=== PATIENT | male | born 1955 | race Caucasian/White ===

== ENCOUNTER → 2024-07-08 10:16 | Outpatient (BNVA) | payer OTHER, MEDICAID, SELFPAY | PROVIDERS: PCP Nurse Practitioner Gerontology; Visit Provider Psychiatry & Neurology Neurology | DX: G43.719 Chronic migraine without aura, intractable, without status migrainosus (principal); R55 Syncope and collapse | CPT/HCPCS: 64615; 99211; J0585 ==

== ENCOUNTER → 2025-01-25 13:59 | Outpatient (BNVA) | payer OTHER, SELFPAY | PROVIDERS: PCP Nurse Practitioner Gerontology; Visit Provider Psychiatry & Neurology Neurology | DX: G43.719 Chronic migraine without aura, intractable, without status migrainosus (principal) | CPT/HCPCS: 64615; 99211; J0585 ==

== ENCOUNTER 2025-05-03 12:14 | Outpatient (AMB) | payer OTHER, MEDICAID, SELFPAY ==
--- NOTE | 2025-05-03 12:44 | MHC.OFFVIS ---
Vital Signs 05/03/25 12:45 Height 5 ft 4 in Weight 191 lb 6 oz BMI 32.8 BP 120/68 Blood Pressure Location Rt brachial Position Sitting Pulse 54 Pulse Source Pulse Oximeter Pulse Oximetry (%) 97 Intake Visit Reasons: Botox Intake Note: Botox Biofuels Operations Manager Required: No Accompanied by: Self / Same As Patient Allergies aspirin Allergy (Mild, Verified 05/03/25 12:49) Abdominal Pain gabapentin Allergy (Mild, Verified 05/03/25 12:49) Unknown ibuprofen (From Motrin) Allergy (Mild, Verified 05/03/25 12:49) Hives Medication List - Last Reconciled 05/03/25 by Rossi Cortez MD albuterol sulfate 90 mcg/actuation 0 mcg inhalation atorvastatin 20 mg PO DAILY chlorhexidine gluconate 0.12% 15 mL PO BID clopidogrel 75 mg PO DAILY diltiazem HCl ER (Tiadylt ER) 360 mg PO DAILY famotidine 20 mg PO DAILY fluticasone furoate-vilanterol 200-25 mcg/dose (Breo Ellipta) 1 ea PO DAILY furosemide 40 mg PO DAILY hydrocortisone 2.5% appl topical DAILY hydroxyzine HCl 10 mg PO BEDTIME ibuprofen 800 mg PO Q6H levetiracetam (Keppra) 500 mg PO BID lidocaine-prilocaine 2.5-2.5 % grams topical losartan 100 mg PO DAILY montelukast 10 mg PO DAILY onabotulinumtoxinA (Botox) 200 units; to be injected to muscles around the scalp by physician q 90 days oxycodone 5 mg PO BID PRN pantoprazole 40 mg PO BID relugolix (Orgovyx) 120 mg PO DAILY sennosides (senna) 17.2 mg PO DAILY PRN sertraline 50 mg PO DAILY tamsulosin 0.4 mg PO DAILY terazosin 1 mg PO DAILY tiotropium bromide 2.5 mcg/actuation (Spiriva Respimat) 2 inhalations inhalation QAM ubrogepant (Ubrelvy) 50 mg PO ONCE PRN HPI Comments Details: ? 69y/o male comes for treatment of migraines with botox. His migraines have decreased in frequency and intensity . He has 6 days a month and are milder. ??? Most frequent reported adverse reactions following injection of botox for chronic migraine include neck pain (9%), headache(5%), eyelid ptosis(4%), migraine(4%), muscular weakness(4%), musculuskeletal stiffness(4%), bronchitis(3%), injection site pain (3%), musculoskeletal pain(3%), myalgia(3%), facial paresis(2%), HTN(2%) and muscle spasms(2%) were discussed in detail. ??? Botulinum toxin typeA 200units Lot no [id number] June 2027 was diluted with 4 cc of normal saline . ??? Muscles injected- ??? Frontalis 4 sites ??? Procerus 1 site ??? Bean Weigher- 2 sites ??? Temporalis- 8 sites ??? Occipitalis- 6 sites ??? Cervical paraspinals- 4 sites ??? Trapezius- 6 sites- 10 units each ??? 5 units each in 31 site ??? Total use- 185units ??? Discarded-15units [facility] Medical History Syncope Asthma GERD (gastroesophageal reflux disease) Anxiety Depression Chronic migraine without aura Sleep disorder Snoring Hyperlipidemia HTN (hypertension) Social History Alcohol intake: never Patient Tobacco Use Status: Former Tobacco user Physical Exam Vital Signs: Last Vital Signs Pulse 54 05/03/25 12:45 BP 120/68 05/03/25 12:45 Pulse Ox 97 05/03/25 12:45 BMI result Body Mass Index 32.8 Const General: cooperative, healthy appearing and comfortable Nutritional Appearance: obese Orientation/consciousness: patient oriented x3 Neuro General: patient oriented x3, gait normal, tone normal, moves all extremities and no focal motor deficits Office Procedures Botulinum toxin Injection 70967 - Migraine Procedure code (CPT) selection complete Office Meds onabotulinumtoxinA 200 unit solution for injection Performing Provider: Rossi Cortez MD Performing Location: [facility] Administered by: Rossi Cortez MD on 05/03/25 13:16 Dose Route Admin Location Dispensed Lot Number Expiration Date [facility] Ending Machine Operator 185 unit subcut 200 units [id number] [employer]OTOX Total Dispensed Waste 200 units 7.5 % Comments: see HPI Assessment & Plan Assessment & Plan (1) Chronic migraine without aura: Code(s): G43.709 - Chronic migraine without aura, not intractable, without status migrainosus Category: Medical Qualifiers: Status migrainosus presence: without status migrainosus Intractability: intractable Qualified Code(s): G43.719 - Chronic migraine without aura, intractable, without status migrainosus Plan Patient tolerated the procedure well he will call with any side effects. Orders: Orders AMB Botulinum toxin Injection - Patient Supplied N/C Today G43.719 - Chronic migraine without aura, intractable, without status migrainosus Coding Level of Care Code Est Pt Level 1 (53656) Diagnoses Intractable chronic migraine without aura and without status migrainosus G43.719 Status migrainosus presence: without status migrainosus Intractability: intractable CPT Codes Botox Injection - Botox 3: 70765 - Migraine ([id number])
[2025-05-03 12:45] VITALS: BP 120/68; PULSE 54; O2SAT 97; BMI 32.8
--- OUTSIDE RECORDS SUMMARY | 2025-05-03 13:05 | XMS_ITS | Clinical Summary ---
Author Organization [address] Address [address] [place] [phone] Phone Care Team Providers Care Data Review Specialist Name Role Phone Bing Em NP Primary Care Provider [phone] Allergies Active Allergy Reactions Criticality Noted Date Comments Aspirin Hives,Rash Medium 01/03/2017 Famotidine Rash Low 02/19/2022 Gabapentin Headache High 01/03/2017 Ibuprofen Hives,Rash Medium 09/16/2023 Ketoconazole Swelling 02/19/2022 Topical - face swelling - however tolerates ketoconazole shampoo Penicillins Diarrhea High 01/03/2017 Medications Ubrelvy 50 mg tablet PLEASE SEE ATTACHED FOR DETAILED DIRECTIONS Active albuterol 0.63 mg/3 mL nebulizer solution INHALE 1 VIAL VIA NEBULIZER EVERY 6 HOURS 8 Active albuterol HFA (PROAIR HFA ; PROVENTIL HFA ; VENTOLIN HFA) 90 mcg/actuation inhaler Inhale 2 puffs by mouth every 4 (four) hours. Active atorvastatin (LIPITOR) 20 mg tablet Take 1 tablet (20 mg total) by mouth 1 (one) time each day. Active clopidogreL (PLAVIX) 75 mg tablet Take 1 tablet (75 mg total) by mouth 1 (one) time each day. Active ferrous sulfate 325 mg (65 mg elemental iron) tablet TAKE 1 TABLET BY MOUTH EVERY OTHER DAY FOR 45 DAYS. 5 Active fluticasone propionate (FLONASE) 50 mcg/actuation nasal spray SPRAY 1 SPRAY BY INTRANASAL ROUTE EVERY DAY Active Breo Ellipta 200-25 mcg/dose inhaler Inhale 1 puff by mouth 1 (one) time each day. Active furosemide (LASIX) 40 mg tablet Take 0.5 tablets (20 mg total) by mouth 1 (one) time each day. Active Tiadylt ER 360 mg 24 hr capsule Take 1 capsule (360 mg total) by mouth 1 (one) time each day. 5 Active hydrOXYzine HCL (ATARAX) 25 mg tablet TAKE 1 TABLET 3 TIMES A DAY BY ORAL ROUTE NEEDED, FOR ANXIETY. 5 Active levalbuterol (XOPENEX HFA) 45 mcg/actuation inhaler Inhale 2 puffs by mouth once daily as needed. 3 Active losartan (COZAAR) 100 mg tablet Take 1 tablet (100 mg total) by mouth 1 (one) time each day. Active montelukast (SINGULAIR) 10 mg tablet Take 1 tablet (10 mg total) by mouth 1 (one) time each day. Active multivitamin tablet 1 TAB DAILY Active Botox 200 unit injection Every 90 days 2 Active oxyCODONE (ROXICODONE) 5 mg immediate release tablet TAKE 1-2 TABLETS BY MOUTH DAILY NEEDED FOR 28 DAYS Active pantoprazole (PROTONIX) 40 mg EC tablet Take 1 tablet (40 mg total) by mouth 2 (two) times a day. Active sertraline (ZOLOFT) 50 mg tablet Take 1 tablet (50 mg total) by mouth 1 (one) time each day. 4 Active terazosin (HYTRIN) 1 mg capsule Take 1 capsule (1 mg total) by mouth 1 (one) time each day. 5 Active Spiriva Respimat 2.5 mcg/actuation inhalation spray INHALE 2 PUFFS INTO THE LUNGS EVERY DAY 5 Active loratadine (CLARITIN) 10 mg tablet Take 1 tablet (10 mg total) by mouth 1 (one) time each day if needed. Active senna (SENOKOT) 8.6 mg tablet Take 3 tablets (25.8 mg total) by mouth 1 (one) time each day. Active tamsulosin (FLOMAX) 0.4 mg 24 hr capsule Take 1 capsule (0.4 mg total) by mouth 2 (two) times a day. Capsules should be taken 30 minutes following the same meal each day. 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 For 5 days started on 04-16. Then stop. Active levoFLOXacin (LEVAQUIN) 500 mg tabletIndicatio ns:pneumococcal pneumonia Take 1 tablet (500 mg total) by mouth 1 (one) time each day. For 5 days starting on 04-16. Then Stop. Active Active Problems Problem Noted Date Diagnosed Date Prostate cancer ([facility] V24, [facility] V28) 01/18 Encounters Date Type Department Care Team Description 04/19/2025 8:09 AM EDT - 04/19/2025 11:59 PM EDT Hospital Encounter Radiation Oncology [address] [place] [phone] Марина Eid NP Prostate cancer ([facility] V24, [facility] V28) (Primary Dx) Discharge Disposition: Home or Self Care 04/19/2025 7:49 AM EDT - 04/19/2025 11:59 PM EDT Hospital Encounter Radiation Oncology [address] [place] [phone] Discharge Disposition: Home or Self Care 04/18/2025 7:55 AM EDT - 04/18/2025 11:59 PM EDT Hospital Encounter Radiation Oncology [address] [place] [phone] Discharge Disposition: Home or Self Care 04/15/2025 8:08 AM EDT - 04/15/2025 11:59 PM EDT Hospital Encounter Radiation Oncology [address] [place] [phone] Clarita Westbrook MD Prostate cancer ([facility] V24, [facility] V28) (Primary Dx) Discharge Disposition: Home or Self Care 04/15/2025 7:52 AM EDT - 04/15/2025 11:59 PM EDT Hospital Encounter Radiation Oncology [address] [place] [phone] Discharge Disposition: Home or Self Care 04/14/2025 7:58 AM EDT - 04/14/2025 11:59 PM EDT Hospital Encounter Radiation Oncology [address] [place] [phone] Discharge Disposition: Home or Self Care 04/13/2025 7:51 AM EDT - 04/13/2025 11:59 PM EDT Hospital Encounter Radiation Oncology [address] [place] [phone] Discharge Disposition: Home or Self Care 04/12/2025 7:47 AM EDT - 04/12/2025 11:59 PM EDT Hospital Encounter Radiation Oncology [address] [place] [phone] Discharge Disposition: Home or Self Care 04/11/2025 7:44 AM EDT - 04/11/2025 11:59 PM EDT Hospital Encounter Radiation Oncology [address] [place] [phone] Discharge Disposition: Home or Self Care 04/08/2025 8:10 AM EDT - 04/08/2025 11:59 PM EDT Hospital Encounter Radiation Oncology [address] [place] [phone] Clarita Westbrook MD Prostate cancer (CMS/HCC V24, CMS/HCC V28) (Primary Dx) Discharge Disposition: Home or Self Care 04/08/2025 7:53 AM EDT - 04/08/2025 11:59 PM EDT Hospital Encounter Radiation Oncology [address] [place] [phone] Discharge Disposition: Home or Self Care 04/07/2025 8:00 AM EDT - 04/07/2025 11:59 PM EDT Hospital Encounter Radiation Oncology [address] [place] [phone] Discharge Disposition: Home or Self Care 04/06/2025 8:00 AM EDT - 04/06/2025 11:59 PM EDT Hospital Encounter Radiation Oncology [address] [place] [phone] Discharge Disposition: Home or Self Care 04/05/2025 7:57 AM EDT - 04/05/2025 11:59 PM EDT Hospital Encounter Radiation Oncology [address] [place] [phone] Discharge Disposition: Home or Self Care 04/04/2025 7:46 AM EDT - 04/04/2025 11:59 PM EDT Hospital Encounter Radiation Oncology [address] [place] [phone] Discharge Disposition: Home or Self Care 04/01/2025 8:09 AM EDT - 04/01/2025 11:59 PM EDT Hospital Encounter Radiation Oncology [address] [place] [phone] Vin Felton MD Discharge Disposition: Home or Self Care 04/01/2025 7:58 AM EDT - 04/01/2025 11:59 PM EDT Hospital Encounter Radiation Oncology [address] [place] [phone] Discharge Disposition: Home or Self Care 03/31/2025 7:45 AM EDT - 03/31/2025 11:59 PM EDT Hospital Encounter Radiation Oncology [address] [place] [phone] Discharge Disposition: Home or Self Care 03/30/2025 7:56 AM EDT - 03/30/2025 11:59 PM EDT Hospital Encounter Radiation Oncology [address] [place] [phone] Discharge Disposition: Home or Self Care 03/29/2025 8:00 AM EDT - 03/29/2025 11:59 PM EDT Hospital Encounter Radiation Oncology [address] [place] [phone] Discharge Disposition: Home or Self Care 03/28/2025 7:55 AM EDT - 03/28/2025 11:59 PM EDT Hospital Encounter Radiation Oncology [address] [place] [phone] Discharge Disposition: Home or Self Care 03/24/2025 8:09 AM EDT - 03/24/2025 11:59 PM EDT Hospital Encounter Radiation Oncology [address] [place] [phone] Clarita Westbrook MD Prostate cancer (CMS/HCC V24, CMS/HCC V28) (Primary Dx) Discharge Disposition: Home or Self Care 03/24/2025 7:47 AM EDT - 03/24/2025 11:59 PM EDT Hospital Encounter Radiation Oncology [address] [place] [phone] Discharge Disposition: Home or Self Care 03/23/2025 8:00 AM EDT - 03/23/2025 11:59 PM EDT Hospital Encounter Radiation Oncology [address] [place] [phone] Prostate cancer (CMS/HCC V24, CMS/HCC V28) (Primary Dx) Discharge Disposition: Home or Self Care 03/22/2025 8:00 AM EDT - 03/22/2025 11:59 PM EDT Hospital Encounter Radiation Oncology [address] [place] [phone] Discharge Disposition: Home or Self Care 03/21/2025 7:48 AM EDT - 03/21/2025 11:59 PM EDT Hospital Encounter Radiation Oncology [address] [place] [phone] Discharge Disposition: Home or Self Care 03/18/2025 8:07 AM EDT - 03/18/2025 11:59 PM EDT Hospital Encounter Radiation Oncology [address] [place] [phone] Clarita Westbrook MD Prostate cancer (CMS/HCC V24, CMS/HCC V28) (Primary Dx) Discharge Disposition: Home or Self Care 03/18/2025 7:58 AM EDT - 03/18/2025 11:59 PM EDT Hospital Encounter Radiation Oncology [address] [place] [phone] Discharge Disposition: Home or Self Care 03/17/2025 8:00 AM EDT - 03/17/2025 11:59 PM EDT Hospital Encounter Radiation Oncology [address] [place] [phone] Discharge Disposition: Home or Self Care 03/16/2025 7:58 AM EDT - 03/16/2025 11:59 PM EDT Hospital Encounter Radiation Oncology [address] [place] [phone] Discharge Disposition: Home or Self Care 03/15/2025 7:55 AM EDT - 03/15/2025 11:59 PM EDT Hospital Encounter Radiation Oncology [address] [place] [phone] Discharge Disposition: Home or Self Care 03/14/2025 7:57 AM EDT - 03/14/2025 11:59 PM EDT Hospital Encounter Radiation Oncology [address] [place] [phone] Discharge Disposition: Home or Self Care 03/11/2025 8:10 AM EDT - 03/11/2025 11:59 PM EDT Hospital Encounter Radiation Oncology [address] [place] [phone] Clarita Westbrook MD Prostate cancer (CMS/HCC V24, CMS/HCC V28) (Primary Dx) Discharge Disposition: Home or Self Care 03/11/2025 7:58 AM EDT - 03/11/2025 11:59 PM EDT Hospital Encounter Radiation Oncology [address] [place] [phone] Discharge Disposition: Home or Self Care 03/10/2025 11:41 AM EDT - 03/10/2025 11:59 PM EDT Hospital Encounter Radiation Oncology [address] [place] [phone] Clarita Westbrook MD Discharge Disposition: Home or Self Care 03/10/2025 11:14 AM EDT - 03/10/2025 11:59 PM EDT Hospital Encounter Radiation Oncology [address] [place] [phone] Discharge Disposition: Home or Self Care 02/25/2025 8:14 AM EDT - 02/25/2025 11:59 PM EDT Hospital Encounter Radiation Oncology [address] [place] [phone] Discharge Disposition: Home or Self Care 02/23/2025 1:00 PM EDT - 02/23/2025 11:59 PM EDT Hospital Encounter Radiation Oncology [address] [place] [phone] Clarita Westbrook MD Prostate cancer ([facility] V24, [facility] V28) Discharge Disposition: Home or Self Care 02/23/2025 11:56 AM EDT - 02/23/2025 11:59 PM EDT Hospital Encounter Radiation Oncology [address] [place] [phone] Prostate cancer ([facility] V24, [facility] V28) (Primary Dx) Discharge Disposition: Home or Self Care 02/18/2025 Telephone Radiation Oncology [address] [place] [phone] Key Martinez, LAUREN Prostate prep from Last 3 Months Family History Medical History Relation Name Comments Stomach cancer Mother Liver cancer Mother's Brother Relation Name Status Comments Mother Mother's Brother Social History Tobacco Use Types Packs/Day Years Used Date Smoking Tobacco: Former Cigarettes Q uit: 1994 Smokeless Tobacco: Never Tobacco Cessation:Counseling Given: Not Answered Alcohol Use Standard Drinks/Week Comments Not Currently 0 (1 standard drink = 0.6 oz pur e alcohol) Sex and Gender Information Value Date Recorded Sex Assigned at Not on file Legal Sex Male 10:15 AM EST Gender Identity Not on file Sexual Orientation Not on file Occupation Industry Job Start Date Job End Date Retired Not on file Not on file Not on file Obstetrics History Last Filed Vital Signs Vital Sign Reading Time Taken Comments Blood Pressure 145/73 02/23/2025 1:06 PM EDT Pulse 49 02/23/2025 1:06 PM EDT Temperature 36.1 C (97 F) 02/23/2025 1:06 PM EDT Respiratory Rate 17 02/23/2025 1:06 PM EDT Oxygen Saturation 100% 02/23/2025 1:06 PM EDT Inhaled Oxygen Concentration - - Weight 84.6 kg (186 lb 9.6 oz) 02/23/2025 1:06 P M EDT Height 162.6 cm (5' 4 ) 01/18/2025 9:49 AM EDT Body Mass Index 32.03 01/18/2025 9:49 AM EDT Plan of Treatment Upcoming Encounters Date Type Department Care Team (Late st Contact Info) Description 06/17/2025 9:30 AM EDT Appointment Radiation Oncology [address] [place] [phone] Марина Eid, ADILSON [address] [place] [address] Health Maintenance Due Date Last Done Comments RSV Immunization Adult Patients (1 - Risk 60-74 years 1-dose series) 2014 Abdominal Aortic Aneurysm (AAA) Screen 09/08/2024 Colorectal Cancer Screening: Stool Based Tests (FOBT/FIT) 09/08/2024 06/28/2022 Hepatitis C Screening 09/08/2024 Medicare Annual Wellness Visit 09/08/2024 Social Influencers of Health Screening 09/08/2024 Depression Screening 09/22/2024 COVID-19 Vaccine (7 - Pfizer risk 2023- season) 2024 06/24/2024, 10/11/2022, 05/02/2022, Additional history exists Hypertension/CHF/CAD Annual BMP Blood Test 01/18/2025 02/21/2023, 12/20/2020 Influenza Vaccine (#1) 2025 , 06/17/2023, 11/16/2022, Additional history exists Falls Risk Assessment 01/18/2026 01/18/2025 Cholesterol Screening (Lipid Panel) 02/22/2028 02/21/2023 DTaP,Tdap,and Td Vaccines (3 - Td or Tdap) 07/06/2030 07/06/2020, 07/04/2008 Zoster Vaccines Completed 05/16/2022, 01/20, 01/05/2015 Pneumococcal Vaccine: 50+ Years Completed 06/17/2023, 11/16/2022, 08/11/2019, Additional history exists HIB Vaccines Aged Out No longer eligi ble based on patient's age to complete this topic HPV Vaccines Aged Out No longer eligi ble based on patient's age to complete this topic Hepatitis A Vaccines Aged Out No long er eligible based on patient's age to complete this topic Hepatitis B Vaccines Aged Out No long er eligible based on patient's age to complete this topic IPV Vaccines Aged Out No longer eligi ble based on patient's age to complete this topic MMR Vaccines Aged Out No longer eligi ble based on patient's age to complete this topic Meningococcal ACWY Vaccine Aged Out N o longer eligible based on patient's age to complete this topic Meningococcal B Vaccine Aged Out No l onger eligible based on patient's age to complete this topic RSV Immunization Patients Under 20 months Aged Out No longer eligible based on patient's age to complete this topic Varicella Vaccines Aged Out No longer eligible based on patient's age to complete this topic Procedures Procedure Name Priority Date/Time Associated Diagnosis Comments RAD ONC MSQ TREATMENT SUMMARY Routine 04/19/2025 8:08 AM EDT RAD ONC MSQ TREATMENT SUMMARY Routine 04/18/2025 8:14 AM EDT RAD ONC MSQ TREATMENT SUMMARY Routine 04/15/2025 8:08 AM EDT RAD ONC MSQ TREATMENT SUMMARY Routine 04/14/2025 8:08 AM EDT RAD ONC MSQ TREATMENT SUMMARY Routine 04/13/2025 8:07 AM EDT RAD ONC MSQ TREATMENT SUMMARY Routine 04/12/2025 8:10 AM EDT RAD ONC MSQ TREATMENT SUMMARY Routine 04/11/2025 8:11 AM EDT RAD ONC MSQ TREATMENT SUMMARY Routine 04/08/2025 8:14 AM EDT RAD ONC MSQ TREATMENT SUMMARY Routine 04/07/2025 8:08 AM EDT RAD ONC MSQ TREATMENT SUMMARY Routine 04/06/2025 8:29 AM EDT RAD ONC MSQ TREATMENT SUMMARY Routine 04/05/2025 8:09 AM EDT RAD ONC MSQ TREATMENT SUMMARY Routine 04/04/2025 8:10 AM EDT RAD ONC MSQ TREATMENT SUMMARY Routine 04/01/2025 8:09 AM EDT RAD ONC MSQ TREATMENT SUMMARY Routine 03/31/2025 8:08 AM EDT RAD ONC MSQ TREATMENT SUMMARY Routine 03/30/2025 8:08 AM EDT RAD ONC MSQ TREATMENT SUMMARY Routine 03/29/2025 8:18 AM EDT RAD ONC MSQ TREATMENT SUMMARY Routine 03/28/2025 8:08 AM EDT RAD ONC MSQ TREATMENT SUMMARY Routine 03/24/2025 8:09 AM EDT RAD ONC MSQ TREATMENT SUMMARY Routine 03/23/2025 8:09 AM EDT RAD ONC MSQ TREATMENT SUMMARY Routine 03/22/2025 8:04 AM EDT RAD ONC MSQ TREATMENT SUMMARY Routine 03/21/2025 8:17 AM EDT RAD ONC MSQ TREATMENT SUMMARY Routine 03/18/2025 8:07 AM EDT RAD ONC MSQ TREATMENT SUMMARY Routine 03/17/2025 8:09 AM EDT RAD ONC MSQ TREATMENT SUMMARY Routine 03/16/2025 8:08 AM EDT RAD ONC MSQ TREATMENT SUMMARY Routine 03/15/2025 8:06 AM EDT RAD ONC MSQ TREATMENT SUMMARY Routine 03/14/2025 8:13 AM EDT RAD ONC MSQ TREATMENT SUMMARY Routine 03/11/2025 8:20 AM EDT RAD ONC MSQ TREATMENT SUMMARY Routine 03/10/2025 11:41 AM EDT from Last 3 Months Results * Rad Onc Msq Treatment Summary (04/19/2025 8:08 AM EDT) Treatment Site prostate/s v MOSAIQ RADIATION ONCOLOGY Course Number 1 MOSAIQ RADIATION ONCOLOGY Prescribed Fractional Dose 250 cGray MOSAIQ RADIATION ONCOLOGY Prescribed Total Dose 7,000 cGray MOSAIQ RADIATION ONCOLOGY Actual Fractions Delivered 28 MOSAIQ RADIATION ONCOLOGY Actual Session Delivered Dose 250 cGray MOSAIQ RADIATION ONCOLOGY Actual Total Dose 7,000 cGray MOSAIQ RADIATION ONCOLOGY Prescribed Technique 2 arc VMAT MOSAIQ RADIATION ONCOLOGY Elapsed Days 40 MOSAIQ RADIATION ONCOLOGY Start Date 03/10/2025 MOSAIQ RADIATION ONCOLOGY Last Date 04/19/2025 MOSAIQ RADIATION ONCOLOGY Prescribed Number of Fractions 28 MOSAIQ RADIATION ONCOLOGY 04/19/2025 8:08 AM EDT Physician Radiation Oncology RADIATION ONCOLO GY ORDERABLES Final Result Performing Organization Address City/[facility]/ZIP Co de Phone Number MOSAIQ RADIATION ONCOLOGY * Rad Onc Msq Treatment Summary (04/18/2025 8:14 AM EDT) Treatment Site prostate/s v MOSAIQ RADIATION ONCOLOGY Course Number 1 MOSAIQ RADIATION ONCOLOGY Prescribed Fractional Dose 250 cGray MOSAIQ RADIATION ONCOLOGY Prescribed Total Dose 7,000 cGray MOSAIQ RADIATION ONCOLOGY Actual Fractions Delivered 27 MOSAIQ RADIATION ONCOLOGY Actual Session Delivered Dose 250 cGray MOSAIQ RADIATION ONCOLOGY Actual Total Dose 6,750 cGray MOSAIQ RADIATION ONCOLOGY Prescribed Technique 2 arc VMAT MOSAIQ RADIATION ONCOLOGY Elapsed Days 39 MOSAIQ RADIATION ONCOLOGY Start Date 03/10/2025 MOSAIQ RADIATION ONCOLOGY Last Date 04/18/2025 MOSAIQ RADIATION ONCOLOGY Prescribed Number of Fractions 28 MOSAIQ RADIATION ONCOLOGY 04/18/2025 8:14 AM EDT Physician Radiation Oncology RADIATION ONCOLO GY ORDERABLES Final Result MOSAIQ RADIATION ONCOLOGY * Rad Onc Msq Treatment Summary (04/15/2025 8:08 AM EDT) Treatment Site prostate/s v MOSAIQ RADIATION ONCOLOGY Course Number 1 MOSAIQ RADIATION ONCOLOGY Prescribed Fractional Dose 250 cGray MOSAIQ RADIATION ONCOLOGY Prescribed Total Dose 7,000 cGray MOSAIQ RADIATION ONCOLOGY Actual Fractions Delivered 26 MOSAIQ RADIATION ONCOLOGY Actual Session Delivered Dose 250 cGray MOSAIQ RADIATION ONCOLOGY Actual Total Dose 6,500 cGray MOSAIQ RADIATION ONCOLOGY Prescribed Technique 2 arc VMAT MOSAIQ RADIATION ONCOLOGY Elapsed Days 36 MOSAIQ RADIATION ONCOLOGY Start Date 03/10/2025 MOSAIQ RADIATION ONCOLOGY Last Date 04/15/2025 MOSAIQ RADIATION ONCOLOGY Prescribed Number of Fractions 28 MOSAIQ RADIATION ONCOLOGY 04/15/2025 8:08 AM EDT Physician Radiation Oncology RADIATION ONCOLO GY ORDERABLES Final Result Performing Organization Address City/[facility]/ZIP Co de Phone Number MOSAIQ RADIATION ONCOLOGY * Rad Onc Msq Treatment Summary (04/14/2025 8:08 AM EDT) Pathologist [facility] Treatment Site prostate/s v MOSAIQ RADIATION ONCOLOGY Course Number 1 MOSAIQ RADIATION ONCOLOGY Prescribed Fractional Dose 250 cGray MOSAIQ RADIATION ONCOLOGY Prescribed Total Dose 7,000 cGray MOSAIQ RADIATION ONCOLOGY Actual Fractions Delivered 25 MOSAIQ RADIATION ONCOLOGY Actual Session Delivered Dose 250 cGray MOSAIQ RADIATION ONCOLOGY Actual Total Dose 6,250 cGray MOSAIQ RADIATION ONCOLOGY Prescribed Technique 2 arc VMAT MOSAIQ RADIATION ONCOLOGY Elapsed Days 35 MOSAIQ RADIATION ONCOLOGY Start Date 03/10/2025 MOSAIQ RADIATION ONCOLOGY Last Date 04/14/2025 MOSAIQ RADIATION ONCOLOGY Prescribed Number of Fractions 28 MOSAIQ RADIATION ONCOLOGY 04/14/2025 8:08 AM EDT Physician Radiation Oncology RADIATION ONCOLO GY ORDERABLES Final Result MOSAIQ RADIATION ONCOLOGY * Rad Onc Msq Treatment Summary (04/13/2025 8:07 AM EDT) Treatment Site prostate/s v MOSAIQ RADIATION ONCOLOGY Course Number 1 MOSAIQ RADIATION ONCOLOGY Prescribed Fractional Dose 250 cGray MOSAIQ RADIATION ONCOLOGY Prescribed Total Dose 7,000 cGray MOSAIQ RADIATION ONCOLOGY Actual Fractions Delivered 24 MOSAIQ RADIATION ONCOLOGY Actual Session Delivered Dose 250 cGray MOSAIQ RADIATION ONCOLOGY Actual Total Dose 6,000 cGray MOSAIQ RADIATION ONCOLOGY Prescribed Technique 2 arc VMAT MOSAIQ RADIATION ONCOLOGY Elapsed Days 34 MOSAIQ RADIATION ONCOLOGY Start Date 03/10/2025 MOSAIQ RADIATION ONCOLOGY Last Date 04/13/2025 MOSAIQ RADIATION ONCOLOGY Prescribed Number of Fractions 28 MOSAIQ RADIATION ONCOLOGY 04/13/2025 8:07 AM EDT Physician Radiation Oncology RADIATION ONCOLO GY ORDERABLES Final Result MOSAIQ RADIATION ONCOLOGY * Rad Onc Msq Treatment Summary (04/12/2025 8:10 AM EDT) Pathologist [facility] Treatment Site prostate/s v MOSAIQ RADIATION ONCOLOGY Course Number 1 MOSAIQ RADIATION ONCOLOGY Prescribed Fractional Dose 250 cGray MOSAIQ RADIATION ONCOLOGY Prescribed Total Dose 7,000 cGray MOSAIQ RADIATION ONCOLOGY Actual Fractions Delivered 23 MOSAIQ RADIATION ONCOLOGY Actual Session Delivered Dose 250 cGray MOSAIQ RADIATION ONCOLOGY Actual Total Dose 5,750 cGray MOSAIQ RADIATION ONCOLOGY Prescribed Technique 2 arc VMAT MOSAIQ RADIATION ONCOLOGY Elapsed Days 33 MOSAIQ RADIATION ONCOLOGY Start Date 03/10/2025 MOSAIQ RADIATION ONCOLOGY Last Date 04/12/2025 MOSAIQ RADIATION ONCOLOGY Prescribed Number of Fractions 28 MOSAIQ RADIATION ONCOLOGY 04/12/2025 8:10 AM EDT Physician Radiation Oncology RADIATION ONCOLO GY ORDERABLES Final Result MOSAIQ RADIATION ONCOLOGY * Rad Onc Msq Treatment Summary (04/11/2025 8:11 AM EDT) Treatment Site prostate/s v MOSAIQ RADIATION ONCOLOGY Course Number 1 MOSAIQ RADIATION ONCOLOGY Prescribed Fractional Dose 250 cGray MOSAIQ RADIATION ONCOLOGY Prescribed Total Dose 7,000 cGray MOSAIQ RADIATION ONCOLOGY Actual Fractions Delivered 22 MOSAIQ RADIATION ONCOLOGY Actual Session Delivered Dose 250 cGray MOSAIQ RADIATION ONCOLOGY Actual Total Dose 5,500 cGray MOSAIQ RADIATION ONCOLOGY Prescribed Technique 2 arc VMAT MOSAIQ RADIATION ONCOLOGY Elapsed Days 32 MOSAIQ RADIATION ONCOLOGY Start Date 03/10/2025 MOSAIQ RADIATION ONCOLOGY Last Date 04/11/2025 MOSAIQ RADIATION ONCOLOGY Prescribed Number of Fractions 28 MOSAIQ RADIATION ONCOLOGY 04/11/2025 8:11 AM EDT Physician Radiation Oncology RADIATION ONCALICIA GY ORDERABLES Final Result MOSAIQ RADIATION ONCOLOGY * Rad Onc Msq Treatment Summary (04/08/2025 8:14 AM EDT) Treatment Site prostate/s v MOSAIQ RADIATION ONCOLOGY Course Number 1 MOSAIQ RADIATION ONCOLOGY Prescribed Fractional Dose 250 cGray MOSAIQ RADIATION ONCOLOGY Prescribed Total Dose 7,000 cGray MOSAIQ RADIATION ONCOLOGY Actual Fractions Delivered 21 MOSAIQ RADIATION ONCOLOGY Actual Session Delivered Dose 250 cGray MOSAIQ RADIATION ONCOLOGY Actual Total Dose 5,250 cGray MOSAIQ RADIATION ONCOLOGY Prescribed Technique 2 arc VMAT MOSAIQ RADIATION ONCOLOGY Elapsed Days 29 MOSAIQ RADIATION ONCOLOGY Start Date 03/10/2025 MOSAIQ RADIATION ONCOLOGY Last Date 04/08/2025 MOSAIQ RADIATION ONCOLOGY Prescribed Number of Fractions 28 MOSAIQ RADIATION ONCOLOGY 04/08/2025 8:14 AM EDT Physician Radiation Oncology RADIATION ONCALICIA GY ORDERABLES Final Result MOSAIQ RADIATION ONCOLOGY * Rad Onc Msq Treatment Summary (04/07/2025 8:08 AM EDT) Treatment Site prostate/s v MOSAIQ RADIATION ONCOLOGY Course Number 1 MOSAIQ RADIATION ONCOLOGY Prescribed Fractional Dose 250 cGray MOSAIQ RADIATION ONCOLOGY Prescribed Total Dose 7,000 cGray MOSAIQ RADIATION ONCOLOGY Actual Fractions Delivered 20 MOSAIQ RADIATION ONCOLOGY Actual Session Delivered Dose 250 cGray MOSAIQ RADIATION ONCOLOGY Actual Total Dose 5,000 cGray MOSAIQ RADIATION ONCOLOGY Prescribed Technique 2 arc VMAT MOSAIQ RADIATION ONCOLOGY Elapsed Days 28 MOSAIQ RADIATION ONCOLOGY Start Date 03/10/2025 MOSAIQ RADIATION ONCOLOGY Last Date 04/07/2025 MOSAIQ RADIATION ONCOLOGY Prescribed Number of Fractions 28 MOSAIQ RADIATION ONCOLOGY 04/07/2025 8:08 AM EDT Physician Radiation Oncology RADIATION ONCOLO GY ORDERABLES Final Result MOSAIQ RADIATION ONCOLOGY * Rad Onc Msq Treatment Summary (04/06/2025 8:29 AM EDT) Treatment Site prostate/s v MOSAIQ RADIATION ONCOLOGY Course Number 1 MOSAIQ RADIATION ONCOLOGY Prescribed Fractional Dose 250 cGray MOSAIQ RADIATION ONCOLOGY Prescribed Total Dose 7,000 cGray MOSAIQ RADIATION ONCOLOGY Actual Fractions Delivered 19 MOSAIQ RADIATION ONCOLOGY Actual Session Delivered Dose 250 cGray MOSAIQ RADIATION ONCOLOGY Actual Total Dose 4,750 cGray MOSAIQ RADIATION ONCOLOGY Prescribed Technique 2 arc VMAT MOSAIQ RADIATION ONCOLOGY Elapsed Days 27 MOSAIQ RADIATION ONCOLOGY Start Date 03/10/2025 MOSAIQ RADIATION ONCOLOGY Last Date 04/06/2025 MOSAIQ RADIATION ONCOLOGY Prescribed Number of Fractions 28 MOSAIQ RADIATION ONCOLOGY 04/06/2025 8:29 AM EDT Physician Radiation Oncology RADIATION ONCOLO GY ORDERABLES Final Result MOSAIQ RADIATION ONCOLOGY * Rad Onc Msq Treatment Summary (04/05/2025 8:09 AM EDT) Treatment Site prostate/s v MOSAIQ RADIATION ONCOLOGY Course Number 1 MOSAIQ RADIATION ONCOLOGY Prescribed Fractional Dose 250 cGray MOSAIQ RADIATION ONCOLOGY Prescribed Total Dose 7,000 cGray MOSAIQ RADIATION ONCOLOGY Actual Fractions Delivered 18 MOSAIQ RADIATION ONCOLOGY Actual Session Delivered Dose 250 cGray MOSAIQ RADIATION ONCOLOGY Actual Total Dose 4,500 cGray MOSAIQ RADIATION ONCOLOGY Prescribed Technique 2 arc VMAT MOSAIQ RADIATION ONCOLOGY Elapsed Days 26 MOSAIQ RADIATION ONCOLOGY Start Date 03/10/2025 MOSAIQ RADIATION ONCOLOGY Last Date 04/05/2025 MOSAIQ RADIATION ONCOLOGY Prescribed Number of Fractions 28 MOSAIQ RADIATION ONCOLOGY 04/05/2025 8:09 AM EDT Physician Radiation Oncology RADIATION ONCOLO GY ORDERABLES Final Result MOSAIQ RADIATION ONCOLOGY * Rad Onc Msq Treatment Summary (04/04/2025 8:10 AM EDT) Treatment Site prostate/s v MOSAIQ RADIATION ONCOLOGY Course Number 1 MOSAIQ RADIATION ONCOLOGY Prescribed Fractional Dose 250 cGray MOSAIQ RADIATION ONCOLOGY Prescribed Total Dose 7,000 cGray MOSAIQ RADIATION ONCOLOGY Actual Fractions Delivered 17 MOSAIQ RADIATION ONCOLOGY Actual Session Delivered Dose 250 cGray MOSAIQ RADIATION ONCOLOGY Actual Total Dose 4,250 cGray MOSAIQ RADIATION ONCOLOGY Prescribed Technique 2 arc VMAT MOSAIQ RADIATION ONCOLOGY Elapsed Days 25 MOSAIQ RADIATION ONCOLOGY Start Date 03/10/2025 MOSAIQ RADIATION ONCOLOGY Last Date 04/04/2025 MOSAIQ RADIATION ONCOLOGY Prescribed Number of Fractions 28 MOSAIQ RADIATION ONCOLOGY 04/04/2025 8:10 AM EDT Physician Radiation Oncology RADIATION ONCOLO GY ORDERABLES Final Result Performing Organization Address City/[facility]/ZIP Co de Phone Number MOSAIQ RADIATION ONCOLOGY * Rad Onc Msq Treatment Summary (04/01/2025 8:09 AM EDT) Treatment Site prostate/s v MOSAIQ RADIATION ONCOLOGY Course Number 1 MOSAIQ RADIATION ONCOLOGY Prescribed Fractional Dose 250 cGray MOSAIQ RADIATION ONCOLOGY Prescribed Total Dose 7,000 cGray MOSAIQ RADIATION ONCOLOGY Actual Fractions Delivered 16 MOSAIQ RADIATION ONCOLOGY Actual Session Delivered Dose 250 cGray MOSAIQ RADIATION ONCOLOGY Actual Total Dose 4,000 cGray MOSAIQ RADIATION ONCOLOGY Prescribed Technique 2 arc VMAT MOSAIQ RADIATION ONCOLOGY Elapsed Days 22 MOSAIQ RADIATION ONCOLOGY Start Date 03/10/2025 MOSAIQ RADIATION ONCOLOGY Last Date 04/01/2025 MOSAIQ RADIATION ONCOLOGY Prescribed Number of Fractions 28 MOSAIQ RADIATION ONCOLOGY 04/01/2025 8:09 AM EDT Physician Radiation Oncology RADIATION ONCOLO GY ORDERABLES Final Result MOSAIQ RADIATION ONCOLOGY * Rad Onc Msq Treatment Summary (03/31/2025 8:08 AM EDT) Treatment Site prostate/s v MOSAIQ RADIATION ONCOLOGY Course Number 1 MOSAIQ RADIATION ONCOLOGY Prescribed Fractional Dose 250 cGray MOSAIQ RADIATION ONCOLOGY Prescribed Total Dose 7,000 cGray MOSAIQ RADIATION ONCOLOGY Actual Fractions Delivered 15 MOSAIQ RADIATION ONCOLOGY Actual Session Delivered Dose 250 cGray MOSAIQ RADIATION ONCOLOGY Actual Total Dose 3,750 cGray MOSAIQ RADIATION ONCOLOGY Prescribed Technique 2 arc VMAT MOSAIQ RADIATION ONCOLOGY Elapsed Days 21 MOSAIQ RADIATION ONCOLOGY Start Date 03/10/2025 MOSAIQ RADIATION ONCOLOGY Last Date 03/31/2025 MOSAIQ RADIATION ONCOLOGY Prescribed Number of Fractions 28 MOSAIQ RADIATION ONCOLOGY 03/31/2025 8:08 AM EDT Physician Radiation Oncology RADIATION ONCALICIA GY ORDERABLES Final Result MOSAIQ RADIATION ONCOLOGY * Rad Onc Msq Treatment Summary (03/30/2025 8:08 AM EDT) Pathologist [facility] Treatment Site prostate/s v MOSAIQ RADIATION ONCOLOGY Course Number 1 MOSAIQ RADIATION ONCOLOGY Prescribed Fractional Dose 250 cGray MOSAIQ RADIATION ONCOLOGY Prescribed Total Dose 7,000 cGray MOSAIQ RADIATION ONCOLOGY Actual Fractions Delivered 14 MOSAIQ RADIATION ONCOLOGY Actual Session Delivered Dose 250 cGray MOSAIQ RADIATION ONCOLOGY Actual Total Dose 3,500 cGray MOSAIQ RADIATION ONCOLOGY Prescribed Technique 2 arc VMAT MOSAIQ RADIATION ONCOLOGY Elapsed Days 20 MOSAIQ RADIATION ONCOLOGY Start Date 03/10/2025 MOSAIQ RADIATION ONCOLOGY Last Date 03/30/2025 MOSAIQ RADIATION ONCOLOGY Prescribed Number of Fractions 28 MOSAIQ RADIATION ONCOLOGY 03/30/2025 8:08 AM EDT Physician Radiation Oncology RADIATION ONCOLO GY ORDERABLES Final Result MOSAIQ RADIATION ONCOLOGY * Rad Onc Msq Treatment Summary (03/29/2025 8:18 AM EDT) Pathologist [facility] Treatment Site prostate/s v MOSAIQ RADIATION ONCOLOGY Course Number 1 MOSAIQ RADIATION ONCOLOGY Prescribed Fractional Dose 250 cGray MOSAIQ RADIATION ONCOLOGY Prescribed Total Dose 7,000 cGray MOSAIQ RADIATION ONCOLOGY Actual Fractions Delivered 13 MOSAIQ RADIATION ONCOLOGY Actual Session Delivered Dose 250 cGray MOSAIQ RADIATION ONCOLOGY Actual Total Dose 3,250 cGray MOSAIQ RADIATION ONCOLOGY Prescribed Technique 2 arc VMAT MOSAIQ RADIATION ONCOLOGY Elapsed Days 19 MOSAIQ RADIATION ONCOLOGY Start Date 03/10/2025 MOSAIQ RADIATION ONCOLOGY Last Date 03/29/2025 MOSAIQ RADIATION ONCOLOGY Prescribed Number of Fractions 28 MOSAIQ RADIATION ONCOLOGY 03/29/2025 8:18 AM EDT Physician Radiation Oncology RADIATION ONCALICIA GY ORDERABLES Final Result MOSAIQ RADIATION ONCOLOGY * Rad Onc Msq Treatment Summary (03/28/2025 8:08 AM EDT) Treatment Site prostate/s v MOSAIQ RADIATION ONCOLOGY Course Number 1 MOSAIQ RADIATION ONCOLOGY Prescribed Fractional Dose 250 cGray MOSAIQ RADIATION ONCOLOGY Prescribed Total Dose 7,000 cGray MOSAIQ RADIATION ONCOLOGY Actual Fractions Delivered 12 MOSAIQ RADIATION ONCOLOGY Actual Session Delivered Dose 250 cGray MOSAIQ RADIATION ONCOLOGY Actual Total Dose 3,000 cGray MOSAIQ RADIATION ONCOLOGY Prescribed Technique 2 arc VMAT MOSAIQ RADIATION ONCOLOGY Elapsed Days 18 MOSAIQ RADIATION ONCOLOGY Start Date 03/10/2025 MOSAIQ RADIATION ONCOLOGY Last Date 03/28/2025 MOSAIQ RADIATION ONCOLOGY Prescribed Number of Fractions 28 MOSAIQ RADIATION ONCOLOGY 03/28/2025 8:08 AM EDT Physician Radiation Oncology RADIATION ONCALICIA GY ORDERABLES Final Result MOSAIQ RADIATION ONCOLOGY * Rad Onc Msq Treatment Summary (03/24/2025 8:09 AM EDT) Treatment Site prostate/s v MOSAIQ RADIATION ONCOLOGY Course Number 1 MOSAIQ RADIATION ONCOLOGY Prescribed Fractional Dose 250 cGray MOSAIQ RADIATION ONCOLOGY Prescribed Total Dose 7,000 cGray MOSAIQ RADIATION ONCOLOGY Actual Fractions Delivered 11 MOSAIQ RADIATION ONCOLOGY Actual Session Delivered Dose 250 cGray MOSAIQ RADIATION ONCOLOGY Actual Total Dose 2,750 cGray MOSAIQ RADIATION ONCOLOGY Prescribed Technique 2 arc VMAT MOSAIQ RADIATION ONCOLOGY Elapsed Days 14 MOSAIQ RADIATION ONCOLOGY Start Date 03/10/2025 MOSAIQ RADIATION ONCOLOGY Last Date 03/24/2025 MOSAIQ RADIATION ONCOLOGY Prescribed Number of Fractions 28 MOSAIQ RADIATION ONCOLOGY 03/24/2025 8:09 AM EDT Physician Radiation Oncology RADIATION ONCALICIA GY ORDERABLES Final Result MOSAIQ RADIATION ONCOLOGY * Rad Onc Msq Treatment Summary (03/23/2025 8:09 AM EDT) Pathologist [facility] Treatment Site prostate/s v MOSAIQ RADIATION ONCOLOGY Course Number 1 MOSAIQ RADIATION ONCOLOGY Prescribed Fractional Dose 250 cGray MOSAIQ RADIATION ONCOLOGY Prescribed Total Dose 7,000 cGray MOSAIQ RADIATION ONCOLOGY Actual Fractions Delivered 10 MOSAIQ RADIATION ONCOLOGY Actual Session Delivered Dose 250 cGray MOSAIQ RADIATION ONCOLOGY Actual Total Dose 2,500 cGray MOSAIQ RADIATION ONCOLOGY Prescribed Technique 2 arc VMAT MOSAIQ RADIATION ONCOLOGY Elapsed Days 13 MOSAIQ RADIATION ONCOLOGY Start Date 03/10/2025 MOSAIQ RADIATION ONCOLOGY Last Date 03/23/2025 MOSAIQ RADIATION ONCOLOGY Prescribed Number of Fractions 28 MOSAIQ RADIATION ONCOLOGY 03/23/2025 8:09 AM EDT Physician Radiation Oncology RADIATION ONCALICIA GY ORDERABLES Final Result MOSAIQ RADIATION ONCOLOGY * Rad Onc Msq Treatment Summary (03/22/2025 8:04 AM EDT) [facility] Treatment Site prostate/s v MOSAIQ RADIATION ONCOLOGY Course Number 1 MOSAIQ RADIATION ONCOLOGY Prescribed Fractional Dose 250 cGray MOSAIQ RADIATION ONCOLOGY Prescribed Total Dose 7,000 cGray MOSAIQ RADIATION ONCOLOGY Actual Fractions Delivered 9 MOSAIQ RADIATION ONCOLOGY Actual Session Delivered Dose 250 cGray MOSAIQ RADIATION ONCOLOGY Actual Total Dose 2,250 cGray MOSAIQ RADIATION ONCOLOGY Prescribed Technique 2 arc VMAT MOSAIQ RADIATION ONCOLOGY Elapsed Days 12 MOSAIQ RADIATION ONCOLOGY Start Date 03/10/2025 MOSAIQ RADIATION ONCOLOGY Last Date 03/22/2025 MOSAIQ RADIATION ONCOLOGY Prescribed Number of Fractions 28 MOSAIQ RADIATION ONCOLOGY 03/22/2025 8:04 AM EDT Physician Radiation Oncology RADIATION ONCALICIA GY ORDERABLES Final Result MOSAIQ RADIATION ONCOLOGY * Rad Onc Msq Treatment Summary (03/21/2025 8:17 AM EDT) Treatment Site prostate/s v MOSAIQ RADIATION ONCOLOGY Course Number 1 MOSAIQ RADIATION ONCOLOGY Prescribed Fractional Dose 250 cGray MOSAIQ RADIATION ONCOLOGY Prescribed Total Dose 7,000 cGray MOSAIQ RADIATION ONCOLOGY Actual Fractions Delivered 8 MOSAIQ RADIATION ONCOLOGY Actual Session Delivered Dose 250 cGray MOSAIQ RADIATION ONCOLOGY Actual Total Dose 2,000 cGray MOSAIQ RADIATION ONCOLOGY Prescribed Technique 2 arc VMAT MOSAIQ RADIATION ONCOLOGY Elapsed Days 11 MOSAIQ RADIATION ONCOLOGY Start Date 03/10/2025 MOSAIQ RADIATION ONCOLOGY Last Date 03/21/2025 MOSAIQ RADIATION ONCOLOGY Prescribed Number of Fractions 28 MOSAIQ RADIATION ONCOLOGY 03/21/2025 8:17 AM EDT Physician Radiation Oncology RADIATION ONCALICIA GY ORDERABLES Final Result Performing Organization Address City/[facility]/ZIP Co de Phone Number MOSAIQ RADIATION ONCOLOGY * Rad Onc Msq Treatment Summary (03/18/2025 8:07 AM EDT) Treatment Site prostate/s v MOSAIQ RADIATION ONCOLOGY Course Number 1 MOSAIQ RADIATION ONCOLOGY Prescribed Fractional Dose 250 cGray MOSAIQ RADIATION ONCOLOGY Prescribed Total Dose 7,000 cGray MOSAIQ RADIATION ONCOLOGY Actual Fractions Delivered 7 MOSAIQ RADIATION ONCOLOGY Actual Session Delivered Dose 250 cGray MOSAIQ RADIATION ONCOLOGY Actual Total Dose 1,750 cGray MOSAIQ RADIATION ONCOLOGY Prescribed Technique 2 arc VMAT MOSAIQ RADIATION ONCOLOGY Elapsed Days 8 MOSAIQ RADIATION ONCOLOGY Start Date 03/10/2025 MOSAIQ RADIATION ONCOLOGY Last Date 03/18/2025 MOSAIQ RADIATION ONCOLOGY Prescribed Number of Fractions 28 MOSAIQ RADIATION ONCOLOGY 03/18/2025 8:07 AM EDT Physician Radiation Oncology RADIATION ONCALICIA GY ORDERABLES Final Result MOSAIQ RADIATION ONCOLOGY * Rad Onc Msq Treatment Summary (03/17/2025 8:09 AM EDT) Treatment Site prostate/s v MOSAIQ RADIATION ONCOLOGY Course Number 1 MOSAIQ RADIATION ONCOLOGY Prescribed Fractional Dose 250 cGray MOSAIQ RADIATION ONCOLOGY Prescribed Total Dose 7,000 cGray MOSAIQ RADIATION ONCOLOGY Actual Fractions Delivered 6 MOSAIQ RADIATION ONCOLOGY Actual Session Delivered Dose 250 cGray MOSAIQ RADIATION ONCOLOGY Actual Total Dose 1,500 cGray MOSAIQ RADIATION ONCOLOGY Prescribed Technique 2 arc VMAT MOSAIQ RADIATION ONCOLOGY Elapsed Days 7 MOSAIQ RADIATION ONCOLOGY Start Date 03/10/2025 MOSAIQ RADIATION ONCOLOGY Last Date 03/17/2025 MOSAIQ RADIATION ONCOLOGY Prescribed Number of Fractions 28 MOSAIQ RADIATION ONCOLOGY 03/17/2025 8:09 AM EDT Physician Radiation Oncology RADIATION ONCALICIA GY ORDERABLES Final Result MOSAIQ RADIATION ONCOLOGY * Rad Onc Msq Treatment Summary (03/16/2025 8:08 AM EDT) Pathologist [facility] Treatment Site prostate/s v MOSAIQ RADIATION ONCOLOGY Course Number 1 MOSAIQ RADIATION ONCOLOGY Prescribed Fractional Dose 250 cGray MOSAIQ RADIATION ONCOLOGY Prescribed Total Dose 7,000 cGray MOSAIQ RADIATION ONCOLOGY Actual Fractions Delivered 5 MOSAIQ RADIATION ONCOLOGY Actual Session Delivered Dose 250 cGray MOSAIQ RADIATION ONCOLOGY Actual Total Dose 1,250 cGray MOSAIQ RADIATION ONCOLOGY Prescribed Technique 2 arc VMAT MOSAIQ RADIATION ONCOLOGY Elapsed Days 6 MOSAIQ RADIATION ONCOLOGY Start Date 03/10/2025 MOSAIQ RADIATION ONCOLOGY Last Date 03/16/2025 MOSAIQ RADIATION ONCOLOGY Prescribed Number of Fractions 28 MOSAIQ RADIATION ONCOLOGY 03/16/2025 8:08 AM EDT Physician Radiation Oncology RADIATION ONCALICIA GY ORDERABLES Final Result MOSAIQ RADIATION ONCOLOGY * Rad Onc Msq Treatment Summary (03/15/2025 8:06 AM EDT) Treatment Site prostate/s v MOSAIQ RADIATION ONCOLOGY Course Number 1 MOSAIQ RADIATION ONCOLOGY Prescribed Fractional Dose 250 cGray MOSAIQ RADIATION ONCOLOGY Prescribed Total Dose 7,000 cGray MOSAIQ RADIATION ONCOLOGY Actual Fractions Delivered 4 MOSAIQ RADIATION ONCOLOGY Actual Session Delivered Dose 250 cGray MOSAIQ RADIATION ONCOLOGY Actual Total Dose 1,000 cGray MOSAIQ RADIATION ONCOLOGY Prescribed Technique 2 arc VMAT MOSAIQ RADIATION ONCOLOGY Elapsed Days 5 MOSAIQ RADIATION ONCOLOGY Start Date 03/10/2025 MOSAIQ RADIATION ONCOLOGY Last Date 03/15/2025 MOSAIQ RADIATION ONCOLOGY Prescribed Number of Fractions 28 MOSAIQ RADIATION ONCOLOGY 03/15/2025 8:06 AM EDT Physician Radiation Oncology RADIATION ONCOLO GY ORDERABLES Final Result MOSAIQ RADIATION ONCOLOGY * Rad Onc Msq Treatment Summary (03/14/2025 8:13 AM EDT) Treatment Site prostate/s v MOSAIQ RADIATION ONCOLOGY Course Number 1 MOSAIQ RADIATION ONCOLOGY Prescribed Fractional Dose 250 cGray MOSAIQ RADIATION ONCOLOGY Prescribed Total Dose 7,000 cGray MOSAIQ RADIATION ONCOLOGY Actual Fractions Delivered 3 MOSAIQ RADIATION ONCOLOGY Actual Session Delivered Dose 250 cGray MOSAIQ RADIATION ONCOLOGY Actual Total Dose 750 cGray MOSAIQ RADIATION ONCOLOGY Prescribed Technique 2 arc VMAT MOSAIQ RADIATION ONCOLOGY Elapsed Days 4 MOSAIQ RADIATION ONCOLOGY Start Date 03/10/2025 MOSAIQ RADIATION ONCOLOGY Last Date 03/14/2025 MOSAIQ RADIATION ONCOLOGY Prescribed Number of Fractions 28 MOSAIQ RADIATION ONCOLOGY 03/14/2025 8:13 AM EDT Physician Radiation Oncology RADIATION ONCALICIA GY ORDERABLES Final Result MOSAIQ RADIATION ONCOLOGY * Rad Onc Msq Treatment Summary (03/11/2025 8:20 AM EDT) Treatment Site prostate/s v MOSAIQ RADIATION ONCOLOGY Course Number 1 MOSAIQ RADIATION ONCOLOGY Prescribed Fractional Dose 250 cGray MOSAIQ RADIATION ONCOLOGY Prescribed Total Dose 7,000 cGray MOSAIQ RADIATION ONCOLOGY Actual Fractions Delivered 2 MOSAIQ RADIATION ONCOLOGY Actual Session Delivered Dose 250 cGray MOSAIQ RADIATION ONCOLOGY Actual Total Dose 500 cGray MOSAIQ RADIATION ONCOLOGY Prescribed Technique 2 arc VMAT MOSAIQ RADIATION ONCOLOGY Elapsed Days 1 MOSAIQ RADIATION ONCOLOGY Start Date 03/10/2025 MOSAIQ RADIATION ONCOLOGY Last Date 03/11/2025 MOSAIQ RADIATION ONCOLOGY Prescribed Number of Fractions 28 MOSAIQ RADIATION ONCOLOGY 03/11/2025 8:20 AM EDT Physician Radiation Oncology RADIATION ONCALICIA GY ORDERABLES Final Result MOSAIQ RADIATION ONCOLOGY * Rad Onc Msq Treatment Summary (03/10/2025 11:41 AM EDT) Treatment Site prostate/s v MOSAIQ RADIATION ONCOLOGY Course Number 1 MOSAIQ RADIATION ONCOLOGY Prescribed Fractional Dose 250 cGray MOSAIQ RADIATION ONCOLOGY Prescribed Total Dose 7,000 cGray MOSAIQ RADIATION ONCOLOGY Actual Fractions Delivered 1 MOSAIQ RADIATION ONCOLOGY Actual Session Delivered Dose 250 cGray MOSAIQ RADIATION ONCOLOGY Actual Total Dose 250 cGray MOSAIQ RADIATION ONCOLOGY Prescribed Technique 2 arc VMAT MOSAIQ RADIATION ONCOLOGY Elapsed Days 0 MOSAIQ RADIATION ONCOLOGY Start Date 03/10/2025 MOSAIQ RADIATION ONCOLOGY Last Date 03/10/2025 MOSAIQ RADIATION ONCOLOGY Prescribed Number of Fractions 28 MOSAIQ RADIATION ONCOLOGY 03/10/2025 11:4 1 AM EDT Physician Radiation Oncology RADIATION ONCALICIA GY ORDERABLES Final Result MOSAIQ RADIATION ONCOLOGY from Last [address] [place] [phone] MEDICAID - [place] [facility] MEDICARE ADVANTAGE Care Teams Data Review Specialist Relationship Specialty Start Date End Date Bing Em NP [address] [place] [address] PCP - General Internal Medicine 09/08/24
--- OUTSIDE RECORDS SUMMARY | 2025-05-03 13:05 | XMS_ITS | Encounter Summary ---
Author Organization [facility] Address [address] [place] [address] Phone Care Team Providers Care J2Ee Android Developer Name Role Phone Elroy Paobn DO Unavailable [phone] Geoff Gaxiola DO Primary Care Provider [phone] Bing Em MEDIA MARKETING SPECIALIST Primary Care Provider Encounter Details Date Type Department Care Team (Late st Contact Info) Description 07/29/2024 Procedure Pass [facility] [address] [place] [address] Social History Tobacco Use Types Packs/Day Years Used Date Smoking Tobacco: Former Cigarettes - 1994 Smokeless Tobacco: Former Comments:4 cigarettes a day Alcohol Use Standard Drinks/Week Comments No 0 (1 standard drink = 0.6 oz [...] as food, clothing, or medical care? No 03/27/2024 In the past 12 months have y ou been in a relationship with a person who hurts, threatens, or tries to control you? No 03/27/2024 Are you denied basic needs s uch as food, clothing, or medical care? No 03/27/2024 In the past 12 months have y ou been in a relationship with a person who hurts, threatens, or tries to control you? No 03/27/2024 Sex and Gender Information Value Date Recorded Sex Assigned at Male 10/21/2017 5:47 PM EST Legal Sex Male 9:24 AM EST Gender Identity Male 10/21/2017 5:47 PM EST Sexual Orientation Straight 10/21/2017 5: 47 PM EST Occupation Industry Job Start Date Job End Date Retired from [employer] Not on file Not on file N ot on file documented as of this encounter Plan of Treatment Upcoming Encounters Date Type Department Care Team (Late st Contact Info) Description 08/29/2025 9:00 AM EST Office Visit [facility] [address] [place] [address] [address]rd Floor, [address] [place] [phone] Francisco Hendricks MD, MS [facility], [address] [address] [email or web address] documented as of this encounter Visit Diagnoses Not on filedocumented in this encounter Care Teams J2Ee Android Developer Relationship Specialty Start Date End Date Geoff Gaxiola DO [address] [address] [email or web address] PCP - General Hospitalist 10/22/23 05/01/25 Bing Em NP [address] [place] [address] [email or web address] PCP - General Nurse Practitioner 05/02/25 Elroy Pabon DO [address] [place] [address] Orthopedics & Sports Medicine, [place] [address] [email or web address] Historical LMR Provider 07/09/17 documented as of this encounter Additional Source Comments The information contained in this document represents components of the legal health record. It is not the complete legal health record.[facility]
== END 2025-05-03 13:12 | disposition home or self-care (01) ==
LOC: HO.HSMS 12:15
PROVIDERS: PCP Nurse Practitioner Gerontology; Visit Provider Psychiatry & Neurology Neurology
DX: G43.719 Chronic migraine without aura, intractable, without status migrainosus (principal)
CPT/HCPCS: 64615

== ENCOUNTER → 2025-05-03 12:14 | Outpatient (BNVA) | payer OTHER, SELFPAY | PROVIDERS: PCP Nurse Practitioner Gerontology; Visit Provider Psychiatry & Neurology Neurology | DX: G43.719 Chronic migraine without aura, intractable, without status migrainosus (principal) | CPT/HCPCS: 64615; 99211; J0585 ==

== ENCOUNTER 2025-08-02 08:43 | Outpatient (AMB) | payer OTHER, SELFPAY ==
--- OUTSIDE RECORDS SUMMARY | 2008-10-01 | XMS_ITS | Encounter Summary ---
Author Organization [facility] Address [address] [place] [address] Phone Care Team Providers Care Patient Flow Coordinator Name Role Phone Unavailable Primary Care Provider Unavailabl e Reason for Visit * MRI/CAT Scan - Closed Specialty Diagnoses / Procedures Referred By Contac t Referred To Contact Procedures CT Spine (Neuro) Focus Outside (No Interpretation) Master Carney MD [address] [place] [address] [address] [place] [address] Phone: tel: fax: [email or web address] Referral ID Status Reason Start Date Expiration Date Visits Re quested Visits Authorized [id number] Closed 01/03/2017 01/03/2018 1 1 Encounter Details Date Type Department Care Team (Late st Contact Info) Description 10/01/2008 Hospital Encounter [facility] [address] [place] [address] Master Carney MD [address] [place] [address] [address] [place] [address] [email or web address] Social History Tobacco Use Types Packs/Day Years Used Date Smoking Tobacco: Former Cigarettes 0.3 20 1 975 - 1994 Smokeless Tobacco: Former Comments:Quit 1994 Alcohol Use Standard Drinks/Week Comments Never 0 (1 standard drink = 0.6 oz pur e alcohol) Education Answer Date Recorded Are you interested in more education? Not on adele e 01/17/2023 Are you concerned about learning? Not on file 01/17/2023 No 01/17/2023 No 01/17/2023 Digital Access Answer Date Recorded No 02/14/2023 No 02/14/2023 Reliable internet access at home? Not on file 02/14/2023 Device with a working camera? Not on file Intimate Partner Violence Answer Date R ecorded Are you denied basic needs s uch as food, clothing, or medical care? No 02/16/2025 In the past 12 months have y ou been in a relationship with a person who hurts, threatens, or tries to control you? No 02/16/2025 Are you denied basic needs s uch as food, clothing, or medical care? No 02/16/2025 In the past 12 months have y ou been in a relationship with a person who hurts, threatens, or tries to control you? No 02/16/2025 Sex and Gender Information Value Date Recorded Sex Assigned at Male 10/21/2017 5:47 PM EST Legal Sex Male 9:24 AM EST Gender Identity Male 10/21/2017 5:47 PM EST Sexual Orientation Straight 10/21/2017 5: 47 PM EST Occupation Industry Job Start Date Job End Date Retired from [employer] Not on file Not on file N ot on file documented as of this encounter Functional Status * Calculated C-SSRS Risk Score (Lifetime/Recent) Answer Date of Assessment Author No Risk Indicated 03/27/2024 7:00 PM Olga Lidia Flores RN * [place] Suicide Severity Rating Scale (Screener/Recent Self-Report) Question Answer Date of Assessment Author 1. Wish to be (Past 1 Month) No 024 7:00 PM Ann Flores RN 2. Non-Specific Active Suici alison Thoughts (Past 1 Month) No 03/27/2024 7:00 PM Ann Flores RN 6. Suicidal Behavior (Lifetime) No 7:00 PM Ann Flores RN documented as of this encounter Plan of Treatment Upcoming Encounters Date Type Department Care Team (Trang Contact Info) Description 08/29/2025 9:00 AM EST Office Visit [facility] [address] Floor, [address] [place] [address] Francisco Hendricks MD, [place] [address] [facility], [address] [place] [address] [email or web address] documented as of this encounter Procedures Procedure Name Priority Date/Time Associated Diagnosis Comments CT SPINE (NEURO) OUTSIDE (NO INTERPRETATION) Routine 10/01/2008 12:00 AM EST documented in this encounter Results * CT Spine (Neuro) Focus Outside (No Interpretation) (10/01/2008 12:00 AM EST) Narrative [facility] - 01/03/2017 8:40 AM EDT This study is for PACS storage only and not for interpretation. us Master Carney MD IMG OUTSIDE IMAGING W/OUT INTER PRETATION Final Result [facility] documented in this encounter Visit Diagnoses Not on filedocumented in this encounter Additional Health Concerns Infection Onset Date Last Indicated Resolved Time CoV-Risk 07/26/2022 07/26/2022 08/06/2022 2:40 PM EST CoV-Risk 03/27/2024 03/27/2024 04/07/2024 1:21 AM EDT documented as of this encounter Additional Source Comments The information contained in this document represents components of the legal health record. It is not the complete legal health record.[facility]
--- OUTSIDE RECORDS SUMMARY | 2010-08-10 | XMS_ITS | Encounter Summary ---
Author Organization [facility] Address [address] [place] [address] Phone Care Team Providers Care Practical Nurse Name Role Phone Unavailable Primary Care Provider Unavailabl e Encounter Details Date Type Department Care Team (Late st Contact Info) Description 08/10/2010 Hospital Encounter [facility] [address] [place] [address] Master Carney MD [address] [place] [address] [address] [place] [address] [email or web address] Social History Tobacco Use Types Packs/Day Years [...] Start Date Job End Date Retired from [employer] Not on file Not on file N ot on file documented as of this encounter Functional Status * Calculated C-SSRS Risk Score (Lifetime/Recent) Answer Date of Assessment Author No Risk Indicated 03/27/2024 7:00 PM EDT Olga Lidia Brunson RN * [place] Suicide Severity Rating Scale (Screener/Recent Self-Report) Question [...] Upcoming Encounters Date Type Department Care Team (Late st Contact Info) Description 08/29/2025 9:00 AM EST Office Visit [facility] [address] [place] [address] 3rd Floor, [address] [place] [address] Francisco Hendricks MD, MS [address] [facility], [address] [place] [phone] [email or web address] documented as of this encounter Procedures Procedure Name Priority Date/Time Associated Diagnosis Comments XR SPINE OUTSIDE (NO INTERPRETATION) Routine 08/10/2010 12:00 AM EST documented in this encounter Results * XR SPINE OUTSIDE(NO INTERPRETATION) (08/10/2010 12:00 AM EST) Narrative [facility] [place] - 01/03/2017 9:10 AM EDT This study is for PACS storage only and not for interpretation. us Master Carney MD IMG OUTSIDE IMAGING W/OUT INTER PRETATION Final Result [facility] documented in this encounter Visit [...] It is not the complete legal health record.[facility]
--- OUTSIDE RECORDS SUMMARY | 2016-08-20 | XMS_ITS | Encounter Summary ---
Author Organization [facility] Address [address] [place] [address] Phone Care Team Providers Care Settlement Technician Name Role Phone Unavailable Primary Care Provider Unavailabl e Reason for Visit * MRI/CAT Scan - Closed Specialty Diagnoses / Procedures Referred By Contac t Referred To Contact Procedures MRI Spine (Neuro) Outside (No Interpretation) Master Carney MD [address] [place] [address] [address] [place] [address] Phone: tel: fax: mailto:[email or web address] Referral ID Status Reason Start Date Expiration Date Visits Re quested Visits Authorized [id number] Closed 01/03/2017 01/03/2018 1 1 Encounter Details Date Type Department Care Team ([facility] st Contact Info) Description 08/20/2016 Hospital Encounter [facility] [address] [place] [address] Master Carney MD [address] [place] [address] [address] [place] [address] [email or web address] Social History Tobacco Use Types Packs/Day Years Used Date Smoking Tobacco: Former Cigarettes 0.3 20 1 5 - 1994 Smokeless Tobacco: Former Comments:Quit 1994 [...] Start Date Job End Date Retired from [employer] Not on file Not on file N ot on file documented as of this encounter Functional Status * Calculated C-SSRS Risk Score (Lifetime/Recent) Answer Date of Assessment Author No Risk Indicated 03/27/2024 7:00 PM Olga Lidia Flores RN * [place] Suicide Severity Rating Scale (Screener/Recent Self-Report) Question [...] Description 08/29/2025 9:00 AM EST Office Visit [facility] [address], [address] [place] [address] Francisco Hendricks MD, MS [address] [facility], [address] [place] [address] [email or web address] documented as of this encounter Procedures Procedure Name Priority Date/Time Associated Diagnosis Comments MRI SPINE NEUROLOGIC FOCUS OUTSIDE (NO INTERPRETATION) Routine 08/20/2016 12:00 AM EST documented in this encounter Results * MRI Spine (Neuro) Outside (No Interpretation) (08/20/2016 12:00 AM EST) Narrative [facility] - 01/03/2017 8:43 AM EDT This study is for PACS storage only and not for interpretation. us Master Carney MD IMG OUTSIDE IMAGING W/OUT INTER PRETATION Final Result [facility] documented in this encounter Visit [...] It is not the complete legal health record.[facility]
--- NOTE | 2025-08-02 08:49 | MHC.OFFVIS ---
Vital Signs 08/02/25 08:50 Height 5 ft 4 in Weight 196 lb BMI 33.6 BP 142/80 H Blood Pressure Location Rt brachial Position Sitting Pulse 47 L Pulse Source Pulse Oximeter Pulse Oximetry (%) 97 Oxygen Delivery Method Room Air Intake Visit Reasons: 3mon Botox ooluzj-qh-Avez Intake Note: Botox 200 pt supplied, Med refill - Ubrelvy Academic Vice President Required: No Accompanied by: Self / Same As Patient Allergies aspirin Allergy (Mild, Verified 08/02/25 08:49) Abdominal Pain gabapentin Allergy (Mild, Verified 08/02/25 08:49) Unknown ibuprofen (From Motrin) Allergy (Mild, Verified 08/02/25 08:49) Hives Medication List - Last Reconciled 08/02/25 by Rossi Cortez MD albuterol sulfate 90 mcg/actuation 0 mcg inhalation albuterol sulfate mg inhalation Q4H atorvastatin 20 mg PO DAILY chlorhexidine gluconate 0.12% 15 mL PO BID clopidogrel 75 mg PO DAILY diltiazem HCl ER (Tiadylt ER) 360 mg PO DAILY famotidine 20 mg PO DAILY fluticasone furoate-vilanterol 200-25 mcg/dose (Breo Ellipta) 1 ea PO DAILY furosemide 40 mg PO DAILY hydrocortisone 2.5% appl topical DAILY hydroxyzine HCl 25 mg PO TID PRN ibuprofen 800 mg PO Q6H lidocaine-prilocaine 2.5-2.5 % grams topical losartan 100 mg PO DAILY montelukast 10 mg PO DAILY onabotulinumtoxinA (Botox) 200 units; to be injected to muscles around the scalp by physician q 90 days pantoprazole 40 mg PO BID relugolix (Orgovyx) 120 mg PO DAILY sennosides (senna) 17.2 mg PO DAILY PRN sertraline 100 mg PO DAILY terazosin 1 mg PO DAILY tiotropium bromide 2.5 mcg/actuation (Spiriva Respimat) 2 inhalations inhalation QAM ubrogepant (Ubrelvy) 50 mg PO ONCE PRN HPI Comments Details: ? 70y/o male comes for treatment of migraines with botox. His migraines have decreased in frequency and intensity . He has 6 days a month and are milder. ??? Most frequent reported adverse reactions following injection of botox for chronic migraine include neck pain (9%), headache(5%), eyelid ptosis(4%), migraine(4%), muscular weakness(4%), musculuskeletal stiffness(4%), bronchitis(3%), injection site pain (3%), musculoskeletal pain(3%), myalgia(3%), facial paresis(2%), HTN(2%) and muscle spasms(2%) were discussed in detail. ??? Botulinum toxin typeA 200units Lot no [id number] February 2027 was diluted with 4 cc of normal saline . ??? Muscles injected- ??? Frontalis 4 sites ??? Procerus 1 site ??? Management Coordinator- 2 sites ??? Temporalis- 8 sites ??? Occipitalis- 6 sites ??? Cervical paraspinals- 4 sites ??? Trapezius- 6 sites- 10 units each ??? 5 units each in 31 site ??? Total use- 185units ??? Discarded-15units [facility] Medical History Syncope Asthma GERD (gastroesophageal reflux disease) Anxiety Depression Chronic migraine without aura Sleep disorder Snoring Hyperlipidemia HTN (hypertension) Social History Alcohol intake: never Patient Tobacco Use Status: Former Tobacco user Physical Exam Vital Signs: Last Vital Signs Pulse 47 L 08/02/25 08:50 BP 142/80 H 08/02/25 08:50 Pulse Ox 97 08/02/25 08:50 Oxygen Delivery Method Room Air 08/02/25 08:50 BMI result Body Mass Index 33.6 Const General: cooperative, healthy appearing and comfortable Nutritional Appearance: obese Orientation/consciousness: patient oriented x3 Neuro General: patient oriented x3, gait normal, tone normal, moves all extremities and no focal motor deficits Office Procedures Botulinum toxin Injection 42139 - Migraine Procedure code (CPT) selection complete Office Meds onabotulinumtoxinA 200 unit solution for injection Performing Provider: Rossi Cortez MD Performing Location: [facility] Administered by: Rossi Cortez MD on 08/02/25 10:38 Dose Route Admin Location Dispensed Lot Number Expiration Date [facility] Digital Campaign Manager 185 unit subcut 200 units [id number] ALLERGAN/BOTOX Total Dispensed Waste 200 units 7.5 % Assessment & Plan Assessment & Plan (1) Chronic migraine without aura: Code(s): G43.709 - Chronic migraine without aura, not intractable, without status migrainosus Category: Medical Qualifiers: Status migrainosus presence: without status migrainosus Intractability: intractable Qualified Code(s): G43.719 - Chronic migraine without aura, intractable, without status migrainosus Plan Patient tolerated the procedure well he will call with any side effects. Orders: Orders AMB Botulinum toxin Injection - Patient Supplied N/C Today G43.719 - Chronic migraine without aura, intractable, without status migrainosus Coding Level of Care Code Est Pt Level 1 (71847) Diagnoses Intractable chronic migraine without aura and without status migrainosus G43.719 Status migrainosus presence: without status migrainosus Intractability: intractable CPT Codes Botox Injection - Botox 3: 16117 - Migraine ([id number])
[2025-08-02 08:50] VITALS: BP 142/80; PULSE 47; O2SAT 97; BMI 33.6
--- OUTSIDE RECORDS SUMMARY | 2025-08-02 08:54 | XMS_ITS | Encounter Summary ---
Author Organization [facility] Address [address] [place] [address] Phone Care Team Providers Care Medication Coordinator Name Role Phone PepperElroy DO Unavailable [phone] Liliana Gonzáles NP Primary Care Pro vider Geoff Gaxiola DO Primary Care Provider [phone] Bing Em NP Primary Care Provider Reason for Referral * MRI/CAT Scan - Closed Specialty Diagnoses / Procedures Referred By Contac t Referred To Contact Radiology Diagnoses Chest pain, unspecified type Procedures NC Myocardial Perfusion Exercise Multiple CHG MYOCARDIAL SPECT MULTIPLE STUDIES Bing Em NP [address] [place] [address] [address] [place] [address] Phone: tel: fax: [email or web address] Referral ID Status Reason Start Date Expiration Date Visits Re quested Visits Authorized [id number] Closed 10/13/2023 12/12/2023 4 4 Encounter Details Date Type Department Care Team (Latest Contact Info) Description 10/21/2023 Transcribe Orders Virtual Department [address] [place] [address] Bing Em NP [address] [facility] 2nd [place] [address] [email or web address] Chest pain, unspecified type (Primary Dx) Social History Tobacco Use Types Packs/Day Years Used Date Smoking Tobacco: Former Cigarettes 1 1994 Smokeless Tobacco: Former Comments:4 cigarettes a [...] with a working camera? Not on file Sex and Gender Information Value Date Recorded Sex Assigned at Male 10/21/2017 5:47 PM EST Legal Sex Male 9:24 AM EST Gender Identity Male 10/21/2017 5:47 PM EST Sexual Orientation Straight 10/21/2017 5: 47 PM EST Occupation Industry Job Start Date Job End Date Retired from [employer] Not on file Not on file N ot on file documented as of this encounter Plan of Treatment Upcoming Encounters Date Type Department Care Team (Late st Contact Info) Description 08/29/2025 9:00 AM EST Office Visit [facility] [address] [place] [address] 3rd Floor, [address] [place] [address] Francisco Hendricks MD, [place] 22 [facility], [address] [place] [address] documented as of this encounter Results * NC Myocardial Perfusion Exercise Multiple (11/03/2023 12:58 PM EST) Anatomical Region Laterality Modality Heart, Vascular Nuclear Medicine 11/05/2023 12:0 1 PM EST Impressions 11/05/2023 2:49 PM EST Normal and unchanged myocardial stress study. Normal left ventricular wall motion. Ejection fraction = 69%. POS -[id number] Narrative 11/05/2023 2:49 PM EST HISTORY : Atypical chest pain. COMPARISON: 06/15/2020 cardiac stress study TECHNIQUE: Pharmacologic stress applied with Lexiscan. Single day study. DOSE: Rest dose 10.0 mCi T c-99m sestamibi, Stress dose 30.2 mCi Tc-99m sestamibi FINDINGS: There appears to be normal distribution of tracer throughout the left ventricular myocardium on both stress and rest. Normal left ventricular wall motion. End diastolic volume 107 cc. End systolic volume 33 cc. Ejection fraction 69%. Procedure Note Arnold Reyes MD - 11/05/2023 HISTORY : Atypical chest pain. COMPARISON: 06/15/2020 cardiac stress study TECHNIQUE: Pharmacologic stress applied with Lexiscan. Single daystudy. DOSE: Rest dose 10.0 mCi T c-99m sestamibi, Stress dose 30.2 mCi Tc-99msestamibi FINDINGS: There appears to be normal distribution of tracer throughout the leftventricular myocardium on both stress and rest. Normal left ventricular wall motion. End diastolic volume 107 cc. Endsystolic volume 33 cc. Ejection fraction 69%. IMPRESSION: Normal and unchanged myocardial stress study. Normal left ventricular wallmotion. Ejection fraction = 69%. POS -[id number] Bing Em MIXER DIAMOND POWDER CV NM CARDIAC Final R esult documented in this encounter Visit Diagnoses Diagnosis Chest pain, unspecified type- Primary Chest pain, unspecified type documented in this encounter Additional Health Concerns Infection Onset Date Last Indicated Resolved Time CoV-Risk 03/27/2024 03/27/2024 04/07/2024 1:21 AM EDT documented as of this encounter Care Teams Medication Coordinator Relationship Specialty Start Date End Date Liliana Gonzáles NP [address] [place] [address] [email or web address] PCP - General Family Medicine 07/26/22 10/21/23 Geoff Gaxiola DO [address] [facility] [address] [place] [address] [email or web address] PCP - General Hospitalist 10/22/23 05/01/25 Bing Em NP [address] [facility] 2nd [place] [address] [email or web address] PCP - General Nurse Practitioner 05/02/25 Elroy Pabon DO [address] [place] [address] Orthopedics & Sports Medicine, [place] [address] [email or web address] Historical LMR Provider 07/09/17 documented as of this encounter Additional Source Comments The information contained in this document represents components of the legal health record. It is not the complete legal health record.[facility]
--- OUTSIDE RECORDS SUMMARY | 2025-08-02 08:54 | XMS_ITS | Encounter Summary ---
Author Organization [facility] Address [address] [place] [address] Phone Care Team Providers Care Associate Product Manager Name Role Phone Elroy Pabon DO Unavailable [phone] Geoff Gaxiola DO Primary Care Provider [phone] Bing Em PLANT PACKER Primary Care Provider Encounter Details Date Type Department Care Team (Late st Contact Info) Description 07/29/2024 Procedure Pass [facility] [place] [place], [place] [id number] Social History Tobacco Use Types Packs/Day Years Used Date Smoking Tobacco: Former Cigarettes 1 - 1994 Smokeless Tobacco: Former Comments:4 cigarettes [...] Start Date Job End Date Retired from [employer] Not on file Not on file N ot on file documented as of this encounter Plan of Treatment Upcoming Encounters Date Type Department Care Team ([facility] Contact Info) Description 08/29/2025 9:00 AM EST Office Visit [facility] [address] [place] [address] 3rd Floor, [address] [place] [address] Francisco Hendricks MD, MS 22 [facility], [address] [address] documented as of this encounter Visit Diagnoses Not on filedocumented in this encounter Care Teams Associate Product Manager Relationship Specialty Start Date End Date Geoff Gaxiola DO [address] [place] [address] [address] [place] [address] [email or web address] PCP - General Hospitalist 10/22/23 05/01/25 Bing Em NP [address] [place] [address] 2nd [place] [address] [email or web address] PCP - General Nurse Practitioner 05/02/25 Elroy Pabon DO [address] [place] [address] Orthopedics & Sports Medicine, [facility] [place] [address] [email or web address] Historical LMR Provider 07/09/17 documented as of this encounter Additional Source Comments The information contained in this document represents components of the legal health record. It is not the complete legal health record.[facility]
--- OUTSIDE RECORDS SUMMARY | 2025-08-02 08:54 | XMS_ITS | Encounter Summary ---
Author Organization [facility] Address [address] [place] [address] Phone Care Team Providers Care Academic Administrator Name Role Phone Elroy Pabon DO Unavailable [phone] Geoff Gaxiola DO Primary Care Provider [phone] Bing Em NP Primary Care Provider Encounter Details Date Type Department Care Team (Late st Contact Info) Description 02/16/2025 Procedure Pass OR Admitting Dept - Virtual Department [address] [place] [address] Social History Tobacco Use Types Packs/Day Years [...] Start Date Job End Date Retired from [employer] Not on file Not on file N ot on file documented as of this encounter Plan of Treatment Upcoming Encounters Date Type Department Care Team ([facility] Contact Info) Description 08/29/2025 9:00 AM EST Office Visit [facility] [address] [place] [address] 3rd Floor, [address] [place] [address] Francisco Hendricks MD, MS 22 [facility], [address] [address] [email or web address] documented as of this encounter Visit Diagnoses Not on filedocumented in this encounter Care Teams Academic Administrator Relationship Specialty Start Date End Date Geoff Gaxiola DO [address] [place] [address] [address] [place] [address] [email or web address] PCP - General Hospitalist 10/22/23 05/01/25 Bing Em NP [address] [place] [address] 2nd [place] [address] [email or web address] PCP - General Nurse Practitioner 05/02/25 Elroy Pabon DO [address] [place] [address] Orthopedics & Sports Medicine, [place] [address] [email or web address] Historical LMR Provider 07/09/17 documented as of this encounter Additional Source Comments The information contained in this document represents components of the legal health record. It is not the complete legal health record.[facility]
--- OUTSIDE RECORDS SUMMARY | 2025-08-02 08:54 | XMS_ITS | Encounter Summary ---
Author Organization [facility] Address [address] [place] [address] Phone Care Team Providers Care Junior Manufacturing Engineer Name Role Phone Bianca Rogers Unavailable [phone] Elroy Pabon DO Unavailable [phone] Elroy England PA-C Unavailable Annita Amaral PA-C Unavailable William Hyman MD Unavailable Arlene Dwyer Primary Care Provider Pcp, Unknown Primary Care Provider UnavailLiliana Wills NP Primary Care Pro vider Geoff Gaxiola DO Primary Care Provider Bing Em NP Primary Care Provider Encounter Details Date Type Department Care Team (Late st Contact Info) Description 06/08/2020 Procedure Pass [facility], Ct Scan - [facility] [address] [place] [address] Social History Tobacco Use Types Packs/Day Years Used Date Smoking Tobacco: Former Cigarettes Smokeless Tobacco: Former Alcohol Use Standard Drinks/Week Comments No 0 (1 standard drink = 0.6 oz pur e alcohol) Sex and Gender Information Value Date Recorded Sex Assigned at Male 10/21/2017 5:47 PM EST Legal Sex Male 9:24 AM EST Gender Identity Male 10/21/2017 5:47 PM EST Sexual Orientation Straight 10/21/2017 5: 47 PM EST documented as of this encounter Plan of Treatment Upcoming Encounters Date Type Department Care Team ([facility] st Contact Info) Description 08/29/2025 9:00 AM EST Office Visit [facility] [address] [place] [address] 3rd Floor, [address] [place] [address] Francisco Hendricks MD, MS 22 [facility], [address] [place] [address] [email or web address] documented as of this encounter Visit Diagnoses Not on filedocumented in this encounter Additional Health Concerns Infection Onset Date Last Indicated Resolved Time CoV-Risk 07/26/2022 07/26/2022 08/06/2022 2:40 PM EST CoV-Risk 03/27/2024 03/27/2024 04/07/2024 1:21 AM EDT documented as of this encounter Care Teams Junior Manufacturing Engineer Relationship Specialty Start Date End Date Arlene Dwyer PA [address] [place] [address] [address] [place] [address] PCP - General Unknown Provider Specialty 04/07/19 02/12/22 Pcp, Unknown PCP - General 02/13/22 07/25/22 Liliana Gonzáles NP [address] [facility] [place] [address] [email or web address] PCP - General Family Medicine 07/26/22 10/21/23 Geoff Gaxiola DO [address] [place] [address] [address] [place] [address] [email or web address] PCP - General Hospitalist 10/22/23 05/01/25 Bing Em NP [address] [address] [email or web address] PCP - General Nurse Practitioner 05/02/25 Bianca Rogers PA [facility] [place] [address] Historical LMR Provider 07/09/17 2 Elroy Pabon DO [address] [place] [address] Orthopedics & Sports Medicine, [place] [address] Historical LMR Provider 07/09/17 Elroy England PA-C [address] [place] [address] Historical LMR Provider 07/09/17 2 Annita Amaral PA-C [address] [place] [address] Orthopedics & Sports [facility], [place] [address] [email or web address] Historical LMR Provider 07/09/17 09/29/21 William Hyman MD [address] [place] [address] Historical LMR Provider 07/09/17 2 documented as of this encounter Additional Source Comments The information contained in this document represents components of the legal health record. It is not the complete legal health record.[facility]
--- OUTSIDE RECORDS SUMMARY | 2025-08-02 08:54 | XMS_ITS | Encounter Summary ---
Author Organization [facility] Address [address] [place] [address] Care Team Providers Care Chain Carrier Name Role Phone Manav Bing DE ANDA Primary Care Provider [phone] Encounter Details Date Type Department Care Team (Late st Contact Info) Description 09/08/[address] [facility] [address] [facility] [place] [address] Melchor Kemp MD [address] [place] [address] Elevated prostate specific antigen (PSA) Social History Tobacco Use Types Packs/Day Years Used Date Smoking Tobacco: Never Assessed Sex and Gender Information Value Date Recorded Sex Assigned at Not on file Legal Sex Male 10:15 AM EST Gender Identity Not on file Sexual Orientation Not on file documented as of this encounter Plan of Treatment Not on file documented as of this encounter Procedures Procedure Name Priority Date/Time Associated Diagnosis Comments FLUOROQUINOLONE RESISTANT GNR IDENTIFICATION AND SUSCEPTIBILITY Routine 09/08/2024 8:05 AM EST Elevated prostate specific antigen (PSA) CULTURE FLUOROQUINOLONE RESISTANT ORGANISM Routine 09/08/2024 8:05 AM EST Elevated prostate specific antigen (PSA) documented in this encounter Results * Fluoroquinolone resistant GNR identification and susceptibility (09/08/2024 8:05 AM EST) Result 1 No Fluoroquinolone Resistant GNR Detected. 09/11/2024 2:05 PM EST [facility] Swab Rectum structure / Unknown 09/08/2024 8:05 AM EST 09/08/2024 10:22 AM EST Narrative [facility] - 09/11/2024 2:05 PM EST Performed at: [facility] [address] [id number] [employer]: Gypsy Lynne MD, Phone: [phone] us Melchor Kemp MD LAB MICROBIOLOGY - GENERAL ORDE RABKAYLEN Final Result Performing Organization Address City/[facility]/ZIP Co de Phone Number [facility] * Culture fluoroquinolone resistant organism (09/08/2024 8:05 AM EST) Fluoroquinolone Resist GNR Cul Final report 09/11/2024 2:05 PM EST [facility] Swab Rectum structure / Unknown 09/08/2024 8:05 AM EST 09/08/2024 10:22 AM EST Narrative [facility] - 09/11/2024 2:05 PM EST Performed at: [facility] [id number] [employer]: Gypsy Lynne MD, Phone: [phone] Melchor Kemp MD LAB MICROBIOLOGY - GENERAL KELLY UGARTE Final Result Performing Organization Address City/[facility]/ZIP Co de Phone Number [facility] documented in this encounter Visit Diagnoses Diagnosis Elevated prostate specific antigen (PSA) documented in this encounter Care Teams Chain Carrier Relationship Specialty Start Date End Date Bing Em NP [address] [place] [address] PCP - General Internal Medicine 09/08/24 documented as of this encounter
--- OUTSIDE RECORDS SUMMARY | 2025-08-02 08:54 | XMS_ITS | Encounter Summary ---
Author Organization [facility] Address [address] [place] [address] Phone Care Team Providers Care Dumpcart Driver Name Role Phone [place] DO Unavailable [phone] Geoff Gaxiola DO Primary Care Provider [phone] Bing Em NP Primary Care Provider Reason for Referral * MRI/CAT Scan - Closed Specialty Diagnoses / Procedures Referred By Barry villanueva Referred To Contact Radiology Diagnoses Chest pain, unspecified type Procedures NC Stress Result for Nuclear Stress Test Bing Em NP [address] [address] Phone: tel: fax: [email or web address] Referral ID Status Reason Start Date Expiration Date Visits Re quested Visits Authorized [id number] Closed 11/03/2023 1 1 Encounter Details Date Type Department Care Team (Late st Contact Info) Description 11/03/2023 Ancillary Orders Virtual Department [address] [place] [address] Bing Em NP [address] [address] [email or web address] Chest pain, unspecified type (Primary Dx) Social History Tobacco Use Types Packs/Day Years Used Date Smoking Tobacco: Former Cigarettes 1994 Smokeless Tobacco: Former Comments:4 cigarettes a [...] Start Date Job End Date Retired from [email or web address] Not on file Not on file N ot on file documented as of this encounter Plan of Treatment Upcoming Encounters Date Type Department Care Team (Late st Contact Info) Description 08/29/2025 9:00 AM EST Office Visit [facility] [address] [place] [address], [address] [place] [address] Francisco Hendricks MD, [place] 22 [facility], [address] [address] [email or web address] documented as of this encounter Results * NC Stress Result for Nuclear Stress Test (11/03/2023 2:24 PM EST) Max BP Systolic 190 mmHg [facility] Max BP Diastolic 96 mmHg [facility] Max HR 117 BPM [facility] Resting HR 83 BPM [facility] Resting BP Systolic 148 mmHg [facility] Resting BP Diastolic 70 mmHg [facility] Peak METS 7.0 METS [facility] Peak HR 116 BPM [facility] Peak BP Systolic 190 mmHg [facility] Peak BP Diastolic 96 mmHg [facility] Anatomical Region Laterality Modality Heart Other 11/03/2023 11:0 5 AM EST 11/03/2023 12:50 PM EST Narrative 11/10/2023 3:59 PM EST Stress Findings The resting heart rate was 83 BPM. The resting BP was 148/70 mmHg. A peak heart rate of 116 BPM (117 BPM of max predicted heart rate) was achieved. Peak BP was 190/96 mmHg. ECG REPORT- Test was started as a ANNABELLA protocol. He was unable to achieve MPHR on treadmill due to profound shortness of breath. Test was converted to a pharmaceutical test. 0.4 mg Regadenoson (lexiscan) given IV push over 10 seconds as per protocol immediately followed by injection of Tc99m Sestamibi by Anne hybrid technologist. Test terminated due to shortness of breath. Baseline resting HR was 83 bpm. Max heart rate achieved was 117 bpm (77% MPHR). 1. EKG - Baseline EKG showed sinus rhythm with non specific ST-T wave abnormalities. During exercise there were no ischemic EKG changes. 2. SYMPTOMS - No chest pain 3. EXERCISE PHYSIOLOGY - Average functional capacity for age. BP 148/70 at rest, BP 190/96 during exercise, BP 150/70 on discharge from tre lab. 4. ARRHYTHMIAS - None Conclusion - There were no EKG changes suggestive for ischemia or symptoms concerning for angina. Nuclear images pending and will be reported separately. Simi Muniz NP with Dr. Orozco Response to Stress The patient exercised for minutes and seconds, achieving 7.0 METS at peak exercise. Baseline blood pressure was 148/70 mmHg, and baseline heart rate was 83 bpm. Peak blood pressure was 190/96 mmHg. The patient achieved a peak heart rate of 116 bpm, which is% of their maximum predicted heart rate. Rate pressure product was [address]. Bing Em FROG OR OYSTER FARMWORKER CV NM CARDIAC Final R esult documented in this encounter Visit Diagnoses Diagnosis Chest pain, unspecified type- Primary Chest pain, unspecified type documented in this encounter Additional Health Concerns Infection Onset Date Last Indicated Resolved Time CoV-Risk 03/27/2024 03/27/2024 04/07/2024 1:21 AM EDT documented as of this encounter Care Teams Dumpcart Driver Relationship Specialty Start Date End Date Geoff Gaxiola DO 55 [facility] [address] [place] [address] [email or web address] PCP - General Hospitalist 10/22/23 05/01/25 Bing Em NP [address] [facility] [address] 2nd [place] [address] [email or web address] PCP - General Nurse Practitioner 05/02/25 Elroy Pabon DO [address] [place] [address] Orthopedics & Sports Medicine, [place] [address] [email or web address] Historical LMR Provider 07/09/17 documented as of this encounter Additional Source Comments The information contained in this document represents components of the legal health record. It is not the complete legal health record.[facility]
--- OUTSIDE RECORDS SUMMARY | 2025-08-02 08:54 | XMS_ITS ---
Author Organization [address] Address [address] [place] [phone] Phone Care Team Providers Care Acid Tank Liner Name Role Phone Bing Em NP Primary Care Provider [phone] Active Problems Problem Noted Date Diagnosed Date Prostate cancer (CMS/HCC V24, CMS/HCC V28) 01/18 Current Treatment and Therapy Plans No current plan information found. Past Treatment and Therapy Plans No past plan information found. Current Radiation Episodes * Radiation Therapy: ProstateOverview* First Treatment Date Latest Treatment Date Treatment Site Technique Goal Episode Provider 03/10/2025 04/19/2025 Prostate Curative Марина Eid NP * Linked Problems Treatment Courses* Course 1 03/10/2025 - 04/19/2025 Treatment Sites Treatment Period Fraction Dose Fractions Total Dose prostate/sv 03/10/2025 - 04/19/2025 250 / 250 cGy 7,000 / 7,000 cGy
--- OUTSIDE RECORDS SUMMARY | 2025-08-02 08:55 | XMS_ITS | Encounter Summary ---
Author Organization [facility] Address [address] [place] [address] Phone Care Team Providers Care Hotel Office Manager Name Role Phone Bianca Rogers Unavailable [phone] Elroy Pabon DO Unavailable [phone] Elroy England PA-C Unavailable Annita Amaral PA-C Unavailable [phone] William Hyman MD Unavailable Arlene Dwyer Primary Care Provider Pcp, Unknown Primary Care Provider UnavailLiliana Wills NP Primary Care Pro vider Geoff Gaxiola DO Primary Care Provider Bing Em NP Primary Care Provider Encounter Details Date Type Department Care Team (Late st Contact Info) Description 04/28/2019 Procedure Pass [facility], [address] [place] [address] Social History Tobacco Use Types Packs/Day Years [...] Description 08/29/2025 9:00 AM EST Office Visit [facility] [address] [place] [address] [address]rd Floor, [address] [place] [address] Francisco Hendricks MD, MS 22 [facility], [address] [place] [address] [email or web address] documented as of this encounter Visit Diagnoses Not on filedocumented in this encounter Additional Health Concerns Infection Onset Date Last Indicated Resolved Time CoV-Risk 07/26/2022 07/26/2022 08/06/2022 2:40 PM EST CoV-Risk 03/27/2024 03/27/2024 04/07/2024 1:21 AM EDT documented as of this encounter Care Teams Hotel Office Manager Relationship Specialty Start Date End Date Arlene Dwyer PA [address] [place] [address] [address] [place] [address] PCP - General Unknown Provider Specialty 04/07/19 02/12/22 Pcp, Unknown PCP - General 02/13/22 07/25/22 Liliana Gonzáles NP [address] [facility] [place] [address] [email or web address] PCP - General Family Medicine 07/26/22 10/21/23 Geoff Gaxiola DO [address] [place] [address] [address] [place] [address] [email or web address] PCP - General Hospitalist 10/22/23 05/01/25 Bing Em NP [address] [address] [email or web address] PCP - General Nurse Practitioner 05/02/25 Bianca Rogers PA [facility] [place] [address] Historical LMR Provider 07/09/17 2 Elroy Pabon DO [address] [facility]ics [facility] Medicine, [place] [address] Historical LMR Provider 07/09/17 Elroy England PA-C [address] [place] [address] Historical LMR Provider 07/09/17 2 Annita Amaral PA-C [address] [place] [address] Orthopedics & Sports [facility], [place] [address] [email or web address] Historical LMR Provider 07/09/17 09/29/21 William Hyman MD 41 [place] [address] Historical LMR Provider 07/09/17 2 documented as of this encounter Additional Source Comments The information contained in this document represents components of the legal health record. It is not the complete legal health record.[facility]
--- OUTSIDE RECORDS SUMMARY | 2025-08-02 08:55 | XMS_ITS | Encounter Summary ---
Author Organization [facility] Address [address] [place] [address] Phone Care Team Providers Care Barrel Endshake Adjuster Name Role Phone Bianca Rogers Unavailable [phone] Elroy Pabon DO Unavailable Elroy England PA-C Unavailable Annita Amaral PA-C Unavailable [phone] William Hyman MD Unavailable [phone] Barbie Schmidt NP Primary Care Provider [phone] Unknown, Unknown Primary Care Provider Arlene Horton Primary Care Provider Pcp, Unknown Primary Care Provider Liliana Hanna NP Primary Care Pro vider Geoff Gaxiola DO Primary Care Provider Bing Em NP Primary Care Provider Reason for Visit * Reason Onset Date Comments Medication Refill 07/28/2018 Encounter Details Date Type Department Care Team (Late st Contact Info) Description 07/28/2018 Telephone [facility] Department of Neurology [address] [place] [address], [address] [place] [address] Alvarado Siddiqi MD, MSc [address] [place] [phone] [email or web address] Medication Refill Social History Tobacco Use Types Packs/Day Years [...] Description 08/29/2025 9:00 AM EST Office Visit [facility] [address] [place] [address] 3rd Floor, [address] [place] [address] Francisco Hendricks MD, MS 22 [facility], [address] [place] [address] [email or web address] documented as of this encounter Visit Diagnoses Not on filedocumented in this encounter Additional Health Concerns Infection Onset Date Last Indicated Resolved Time CoV-Risk 07/26/2022 07/26/2022 08/06/2022 2:40 PM EST CoV-Risk 03/27/2024 03/27/2024 04/07/2024 1:21 AM EDT documented as of this encounter Care Teams Barrel Endshake Adjuster Relationship Specialty Start Date End Date Barbie Schmidt NP [address] [place] [address] PCP - General Pediatrics 06/09/18 12/29/18 Unknown, Unknown, [address] [place] [address] PCP - General 03/02/19 04/06/19 Arlene Dwyer PA [address] [place] [address] [place] [address] PCP - General Unknown Provider Specialty 04/07/19 02/12/22 Pcp, Unknown PCP - General 02/13/22 07/25/22 Liliana Gonzáles NP [address] [place] [address] [email or web address] PCP - General Family Medicine 07/26/22 10/21/23 Geoff Gaxiola DO [address] [place] [address] [address] [place] [address] [email or web address] [employer] Referrals PCP - General Hospitalist 10/22/23 05/01/25 Bing Em, ADILSON [address] [place] [address] 2nd [place] [address] [email or web address] PCP - General Nurse Practitioner 05/02/25 Bianca Rogers [place] [address] Historical LMR Provider 07/09/17 2 Elroy Pabon DO [address] [place] [address] Orthopedics & Sports Medicine, [place] [address] [email or web address] Historical LMR Provider 07/09/17 Elroy England PA-C [address] [place] [address] 1 [place] [address] Historical LMR Provider 07/09/17 2 Annita Amaral PA-C 4 [facility] Orthopedics & Sports Medicine, [facility] [place] [address] [email or web address] Historical LMR Provider 07/09/17 09/29/21 William Hyman MD [address] [place] [address] Historical LMR Provider 07/09/17 2 documented as of this encounter Additional Source Comments The information contained in this document represents components of the legal health record. It is not the complete legal health record.[facility]
--- OUTSIDE RECORDS SUMMARY | 2025-08-02 08:55 | XMS_ITS | Encounter Summary ---
Author Organization [facility] Address [address] [place] [address] Phone Care Team Providers Care Carry Out Clerk Name Role Phone Elroy EnglandC Primary Care Provider Bianca Rogers Unavailable [phone] Elroy Pabon DO Unavailable Elroy England-C Unavailable Annita Amaral-C Unavailable William Hyman MD Unavailable [phone] Barbie Schmidt NP Primary Care Provider Unknown, Unknown Primary Care Provider Arlene Horton Primary Care Provider Pcp, Unknown Primary Care Provider Liliana Hanna NP Primary Care Pro vider Geoff Gaxiola DO Primary Care Provider [phone] Bing Em NP Primary Care Provider Encounter Details Date Type Department Care Team (Late st Contact Info) Description 12/08/2017 Procedure Pass [facility], Mri - [address] [address] Social History Tobacco Use Types Packs/Day Years [...] Description 08/29/2025 9:00 AM EST Office Visit [facility] 22 [facility] 3rd Floor, [address] [place] [address] Francisco Hendricks MD, MS 22 [facility], [address] [address] [email or web address] documented as of this encounter Visit Diagnoses Not on filedocumented in this encounter Additional Health Concerns Infection Onset Date Last Indicated Resolved Time CoV-Risk 07/26/2022 07/26/2022 08/06/2022 2:40 PM EST CoV-Risk 03/27/2024 03/27/2024 04/07/2024 1:21 AM EDT documented as of this encounter Care Teams Carry Out Clerk Relationship Specialty Start Date End Date Elroy England PA-C [address] [place] [address] [address] [place] [address] PCP - General 09/04/16 06/08/18 Barbie Schmidt NP [address] [place], [place] [id number] PCP - General Pediatrics 06/09/18 12/29/18 Unknown, Unknown, [address] [place] [address] PCP - General 03/02/19 04/06/19 Arlene Dwyer PA [address] [facility] 234 [place] [address] PCP - General Unknown Provider Specialty 04/07/19 02/12/22 Pcp, Unknown PCP - General 02/13/22 07/25/22 Liliana Gonzáles, ADILSON [address] [place] [address] [email or web address] PCP - General Family Medicine 07/26/22 10/21/23 Geoff Gaxiola DO [address] [place] [address] [address] [place] [address] [email or web address] PCP - General Hospitalist 10/22/23 05/01/25 Bing Em, ADILSON 1 [facility] 2nd [place] [address] [email or web address] PCP - General Nurse Practitioner 05/02/25 Bianca Rogers [place] [address] Historical LMR Provider 07/09/17 2 Elroy Pabon DO [address] [place] [address] Orthopedics & Sports Medicine, [place] [address] [email or web address] Historical LMR Provider 07/09/17 Elroy England PA-C [address] [place] [address] 1 [place] [address] Historical LMR Provider 07/09/17 2 Annita Amaral PA-C 4 [facility] Orthopedics & Sports Medicine, [place] [address] [email or web address] Historical LMR Provider 07/09/17 09/29/21 William Hyman MD [address] [place] [address] Historical LMR Provider 07/09/17 2 documented as of this encounter Additional Source Comments The information contained in this document represents components of the legal health record. It is not the complete legal health record.[facility]
--- OUTSIDE RECORDS SUMMARY | 2025-08-02 08:55 | XMS_ITS | Clinical Summary ---
Author Organization [facility] Address [address] [place] [address] Phone Care Team Providers Care Administrator Name Role Phone Nabila Pabonkatie Hernandez DO Unavailable [phone] Bing Em NP Primary Care Provider Allergies Active Allergy Reactions Criticality Noted Date Comments Aspirin Hives,Rash Medium 01/03/2017 Famotidine Rash Low 02/19/2022 Gabapentin Headaches High 01/03/2017 Ketoconazole Swelling 02/19/2022 Topical - face swelling - however tolerates ketoconazole shampoo Motrin (Ibuprofen) Rash Medium 09/16/2023 Penicillins Diarrhea High 01/03/2017 Medications montelukast (SINGULAIR) 10 mg tablet Take 10 mg by mouth nightly. Active oxyCODONE 5 MG immediate release tablet Take 5 mg by mouth 3 (three) times a day. Active levalbuterol (XOPENEX HFA) 45 mcg/actuation inhaler Inhale 2 puffs into the lungs as needed for wheezing. Active atorvastatin (LIPITOR) 20 MG tablet Take 1 tablet (20 mg total) by mouth nightly. 14 tablet 8 Active multivitamin per tablet 1 TAB DAILY Active fluticasone propionate (FLONASE) 50 mcg/actuation nasal spray 2 sprays Nasally Once a day Active albuterol (ACCUNEB) 0.63 mg/3 mL nebulizer solution INHALE 1 VIAL VIA NEBULIZER EVERY 6 HOURS 0 8 Active fluticasone furoate-vilante roL (BREO ELLIPTA) 200-25 mcg/dose inhaler Inhale 1 puff into the lungs daily. Active clopidogrel (PLAVIX) 75 mg tablet Take 1 tablet (75 mg total) by mouth nightly at bedtime. Currently ON HOLD until your colonoscopy 14 tablet 1 Active furosemide (LASIX) 40 MG tablet TAKE 1 TABLET BY MOUTH EVERY DAY 90 tablet 1 1 Active pantoprazole (PROTONIX) 40 MG tablet Take 2 tablets (80 mg total) by mouth 2 (two) times a day. 0 2 Active BOTOX 200 unit SolR Every 90 days 2 Active TIADYLT ER 240 mg 24 hr capsule Take by mouth daily. 2 Active losartan (COZAAR) 100 MG tablet Take 100 mg by mouth daily. 2 Active ubrogepant (UBRELVY) 50 mg tablet Take 50 mg by mouth as needed for migraine. Active tamsulosin (FLOMAX) 0.4 mg Cap 5 Active SPIRIVA RESPIMAT 2.5 mcg/actuation mist for inhalation INHALE 2 PUFFS INTO THE LUNGS EVERY DAY Active sertraline (ZOLOFT) 100 MG tablet Take 100 mg by mouth daily. Active sertraline (ZOLOFT) 25 MG tablet Take 25 mg by mouth daily. Active relugolix (ORGOVYX) 120 mg tablet 5 Active ferrous sulfate 325 mg (65 mg nome iron) tablet TAKE 1 TABLET BY MOUTH EVERY OTHER DAY FOR 45 DAYS. Active hydrOXYzine (ATARAX) 25 MG tablet TAKE 1 TABLET 3 TIMES A DAY BY ORAL ROUTE NEEDED, FOR ANXIETY. Active Active Problems Problem Noted Date Diagnosed Date Carcinoma of prostate 12/23/2024 Iron deficiency anemia 07/09/2024 Chronic pain 03/04/2024 Migraine 02/05/2024 Aortic valve stenosis 10/07/2023 Overview (02/15/2025): mild on echo done 10/15 Insomnia 02/19/2022 History of TIA (transient ischemic attack) 11/15 Varicose veins of bilateral lower extremities with other complications 06/20/2020 Assessment & Plan (08/28/2020 8:50 AM EST): As mentioned I explained risk benefits and alternatives to a left great saphenous vein ablation which we will proceed with Assessment & Plan (06/20/2020 1:12 PM EDT): At this point we are going to order him a venous reflux study given his symptoms and signs I will see him thereafter and tailor more specific therapy Claudication in peripheral vascular disease 05/24 Assessment & Plan (08/28/2020 8:51 AM EST): He has minimal bilateral SFA disease but no obstructive lesions Assessment & Plan (06/20/2020 1:13 PM EDT): His symptoms sound like claudication but if his ultrasound shows no obstructive disease more than likely this is due to lumbar disc disease Hx of arthroscopy of left knee 06/29/2019 Transient ischemic attack 12/08/2017 Assessment & Plan (12/09/2017 12:25 PM EDT): Transient right sided facial drop and dysarthric speech - may have been TIA, no CVA seen on MRI, carotids show plaquing but no significant stenosisr --Plavix (ASA allergy), atorvastatin - tele neuro consult --lipid profile, hemoglobin A1c Pseudoseizures 12/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 --Should he have seizure-like activity during hospitalization, avoid benzodiazepines --Continue Paxil and amitriptyline per home regimen Conversion disorder with attacks or seizures 08/2017 Assessment & Plan (11/07/2017 9:51 AM EST): I don't understand why our referral to Dr. Siddiqi has fallen through the cracks again. We will continue to work on that today, and try to discover why an appointment has not been made. If it is a question of insurance coverage, then we will have to look into alternatives. 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 There has been some confusion about arranging for a consultation with Dr. Yohan Siddiqi here at the [facility]. I think this would be optimal, but if we can find somebody who will help manage his functional neurologic disease closer to home, that's fine as well. I am told he has a neurologist closer to home and he/she can certainly take over management of the neurologic components of his care, which is largely migraine headache. Depression with anxiety Essential hypertension Assessment & Plan (11/16/2020 4:30 PM EST): - acceptable continue with diltiazem and losartan. Moderate persistent asthma Obstructive sleep apnea on CPAP Resolved Problems Problem Noted Date Diagnosed Date Resolved Date Symptomatic anemia 11/15/2020 Assessment & Plan (11/16/2020 4:29 PM EST): -Received 1 unit of blood hemoglobin 7.4 did not fully increment but would not transfuse further -EGD today showed Chriss lesions hiatal hernia -Plavix is on hold for November 20 colonoscopy -We will likely resume aspirin tomorrow avoiding further NSAIDs continue PPI -Advance diet tonight CBC in the morning if no further bleeding can be discharged to resume outpatient work-up with colonoscopy next week Bilateral knee pain 05/30/2020 11/15/19 21 Left knee pain 06/29/2019 11/15/2020 Dyspnea on exertion 12/09/2017 11/15/19 21 Assessment & Plan (12/09/2017 12:27 PM EDT): - will monitor on tele, follow serial troponins, check echo and orthostatic vital signs, check chest xray - etiology is unclear low suspicion for ACS Chest pain 10/22/2017 10/22/2017 Assessment & Plan (10/22/2017 4:28 AM EST): Atypical chest pain unrelieved by aspirin or nitroglycerin. 2 mg of morphine sulfate have been ordered to provide the patient's comfort. We will rule out myocardial infarction, check a lipid panel, schedule echocardiogram and request cardiology consultation. The patient should be counseled to begin an exercise regimen. Asthma 01/03/2017 10/22/2017 Assessment & Plan (10/22/2017 4:29 AM EST): He suffers from fairly active asthma but this evening is not wheezing. We will continue his Advair and bronchodilators as needed. Encounters Date Type Department Care Team Description 05/12/2025 Telephone [employer] [facility] Orth[facility]ics & Sports Medicine [address] [place] [id number] Elroy Pabon, Auth for Release of PPHI from Last 3 Months Immunizations Immunization Administration Dates Next Due INFLUENZA, SPLIT VIRUS, TRIV ALENT W/ PRESERVATIVE IM 07/07/2012,08/01/2011,06/01/2010,10/05 Influenza High-Dose Quadriva lent Preservative Free IM 07/06/2020 Influenza Quadrivalent Prese rvative Free IM 08/11/2019 Influenza, Unspecified Formulation 07/04/2008, Pneumococcal conjugate PCV13 08/11/2019 Pneumococcal polysaccharide PPSV23 02/17/2008 Tdap 07/04/2008 Family History Medical History Relation Comments Heart disease Mother Stroke Mother Asthma Sister Sleep apnea Son Epilepsy Neg Hx Relation Status Comments Mother Sister Son Social History Tobacco Use Types Packs/Day Years Used Date Smoking Tobacco: Former Cigarettes 0.3 20 1 975 - 1994 Smokeless Tobacco: Former Tobacco Cessation:Counseling Given: Not Answered Comments:Quit 1994 Alcohol Use Standard Drinks/Week Comments [...] Start Date Job End Date Retired from [employer] Not on file Not on file N ot on file Last Filed Vital Signs Vital Sign Reading Time Taken Comments Blood Pressure 101/59 04/16/2025 12:59 PM EDT Pulse 70 04/16/2025 12:59 PM EDT Temperature 36.7 C (98.1 F) 04/16/2025 12:59 PM EDT Respiratory Rate 17 02/16/2025 10:17 AM EDT Oxygen Saturation 94% 04/16/2025 12:59 PM EDT Inhaled Oxygen Concentration - - Weight 84.4 kg (186 lb) 02/16/2025 7:15 AM EDT Height 162.6 cm (5' 4 ) 02/16/2025 7:15 AM EDT Body Mass Index 31.93 02/16/2025 7:15 AM EDT Plan of Treatment Upcoming Encounters Date Type Department Care Team (Late st Contact Info) Description 08/29/2025 9:00 AM EST Office Visit [facility] [address], [address] [place] [address] Francisco Hendricks MD, MS [address], [address] [place] [id number] [email or web address] Health Maintenance Due Date Last Done Comments HEPATITIS C SCREENING 1972 COLOGUARD 1999 FOBT 1999 SIGMOIDOSCOPY 1999 VIRTUAL COLONOSCOPY 1999 RSV VACCINE (1 - Risk 50-74 years 1-dose series) 2004 DEPRESSION SCREENING 06/27/2021 06/27/2020 FIT TEST 06/28/2023 06/28/2022, 11/17/2020 CREATININE LEVEL 03/27/2025 03/27/2024, 04/2023, 02/21/2023, Additional history exists POTASSIUM LEVEL 03/27/2025 03/27/2024, 04/2023, 02/21/2023, Additional history exists INFLUENZA VACCINE (#1) 2025 , 06/17/2023, 11/16/2022, Additional history exists COVID-19 VACCINE (2024- season) 2025 06/24/2024, 10/11/2022, 05/02/2022, Additional history exists BLOOD PRESSURE 10/17/2025 04/16/2025 COLONOSCOPY 12/04/2025 12/04/2020 COLORECTAL CANCER SCREENING 12/04/2025 LIPID PANEL 02/22/2028 02/21/2023, 12/10/2017 Adult Td,Tdap Booster 07/06/2030 07/06/2020, 008 ABDOMINAL AORTIC ANEURYSM (AAA) SCREENING Completed 09/29/2021, 07/12/2020, 03/02/2019 ZOSTER VACCINES Completed 05/16/2022, 01/20, 01/05/2015 PNEUMOCOCCAL VACCINES (50+ years) Completed 06/17/2023, 11/16/2022, 08/11/2019, Additional history exists SMOKING STATUS SCREENING (Once After 26 Yrs) Completed 02/16/2025 HEPATITIS A VACCINES Aged Out No long er eligible based on patient's age to complete this topic HIB VACCINES Aged Out No longer eligi ble based on patient's age to complete this topic MENINGOCOCCAL VACCINES (ACWY) Aged Out No longer eligible based on patient's age to complete this topic MENINGOCOCCAL VACCINES (B) Aged Out N o longer eligible based on patient's age to complete this topic Medical Devices Implanted Type Area Chicken Stuffer Device Identifier Shelf Expiration Date Model / Serial / Lot C3-C4 System [employer] [facility] - [id number] Implanted:Qty: 1 on 02/16/2025 by Melchor Kemp MD at [facility] N/A: Rectum GENELINK YOEL 02/12/2026 [id number] / / [id number] Procedures Procedure Name Priority Date/Time Associated Diagnosis Comments BASIC METABOLIC PANEL (BMP) STAT 03/27/2024 7:26 PM EDT LIPID PANEL Routine 02/21/2023 10:33 AM EDT Screening for prostate cancer Primary hypertension Screening for malignant neoplasm of prostate Hyperlipidemia, unspecified hyperlipidemia type Encounter for special screening examination for cardiovascular disorder HC BLOOD OCCULT FECAL HGB DETER IA QUAL FECES 1-3 Routine 06/28/2022 5:20 PM EDT Hx of iron deficiency anemia CT ANGIO ABDOMEN/PELVIS WITH AND WITHOUT CONTRAST Routine 09/29/2021 4:50 PM EST ENDOSCOPY, COLON 12/04/2020 11:5 8 AM EDT from Last 3 Months or Most Recently Relevant to Health Maintenance Results * Basic metabolic panel (03/27/2024 7:26 PM EDT) SODIUM 141 133 - 146 mmol/L [facility] CHLORIDE 103 96 - 108 mmol/L [facility] POTASSIUM 3.4 3.3 - 5.1 mmol/L [facility] CO2 25 21 - 35 mmol/L [facility] BUN 17 6 - 19 mg/dL [facility] CREATININE 1.20 0.5 - 1.5 mg/dL [facility] GLUCOSE 94 70 - 99 mg/dL [facility] CALCIUM 9.0 8.4 - 10.3 mg/dL [facility] EGFR 65 >59 mL/min/1.7 3m2 [facility] Comment:Estimated glomerular filtration rate calculated using the CKD-EPI refit equation. ANION GAP 16 10 - 20 mmol/L [facility] Blood 03/27/2024 7:26 PM EDT 03/27/2024 7:38 PM EDT Joaquin Fong MD LAB BLOOD BKR ORDERABLES Final R esult Performing Organization Address [facility] Co de Phone Number [address] [address] * (ABNORMAL) Lipid panel (02/21/2023 10:33 AM EDT) HDL 72 mg/dL [facility] Comment: Interpretation <40 mg/dL: Low HDL cholesterol (major risk factor for CHD) Greater than or equal to 60 mg/dL: High HDL cholesterol ( negative risk factor for CHD) HDL - cholesterol is affected by a number of factors, e.g. smoking, excerise, hormones, sex and age. CHOLESTEROL 130 0 - 240 mg/dL [facility] TRIGLYCERIDES 60 30 - 160 mg/dL [facility] LDL 46(L) 50 - 129 mg/dL [facility] Comment: LDL levels in terms of risk for coronary heart disease: <100 mg/dL: Optimal 100-129 mg/dL: Near or above optimal 130-159 mg/dL: Borderline high 160-189 mg/dL: High >190 mg/dL: Very High CARDIAC RISK RATIO 1.8(L) 3.4 - 5.0 C [facility] Blood 02/21/2023 10:3 3 AM EDT 02/21/2023 10:38 AM EDT us Bing Em GUIDE EXCURSION LAB BLOOD BKR ORDERABLE S Final Result Performing Organization Address [facility] Co de Phone Number [address] [address] * Fecal immunochemical test x1 (FIT) (06/28/2022 5:20 PM EDT) Immuno Fecal Occult Negative Negative [facility] Stool (Stool) 06/28/2022 5:2 0 PM EDT 06/28/2022 5:22 PM EDT us Alyssa Castano GUIDE EXCURSION LAB BODY FLUIDS AND STOOL ORDERABLES Final Result Performing Organization Address [facility] Co de Phone Number [address] [address] * CT ANGIO ABDOMEN/PELVIS WITH AND WITHOUT CONTRAST (09/29/2021 4:50 PM EST) Anatomical Region Laterality Modality Abdomen, Abdominal Vasculature C omputed Tomography 09/29/2021 5:27 PM EST Impressions 09/29/2021 5:45 PM EST No aortic dissection, intramural hematoma or perivascular inflammation. No extravasation of contrast. Narrative 09/29/2021 5:45 PM EST Reason for exam (per EHR order): * Chest pain or back pain, aortic dissection suspected TECHNIQUE: Scans: Noncontrast chest CT. CTA chest, abdomen and pelvis. Oral contrast: None. IVCM: Administered. 3D Post-processing: MIPS. COMPARISON: None. FINDINGS: VASCULAR: Aorta: No aneurysm, intramural hematoma, dissection or perivascular formation. No extravasation of contrast. Right subclavian artery: Normal. Proximal segment of the right common carotid artery: Normal. Proximal segment of the left common carotid artery: Normal. Left subclavian artery: Normal. Celiac axis: Normal. Superior mesenteric artery: Normal. 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 Right renal artery: Normal. Left renal artery: Normal. Inferior mesenteric artery: Normal. Right iliac: Normal. Left iliac: Normal. CHEST: Ports and Devices: None. Lungs: Normal. Pleura: Normal. Mediastinum: Coronary artery calcifications. Chest Wall / Breasts: Gynecomastia. ABDOMEN AND PELVIS: Liver: Normal. Biliary System: Normal. Pancreas: Normal. Spleen: Normal. Adrenal Glands: Normal. Kidneys: Normal. Bowel: Moderate size hiatal hernia. No bowel wall thickening or distention. No inflamed bowel segment. Mesentery, Omentum, and Peritoneum: Normal. Pelvic Organs: Normal. Lymph Nodes: Normal. Bones and Soft Tissues: Thoracolumbar degenerative changes. Procedure Note Shayy Amaya MD - 09/29/2021 Reason for exam (per EHR order): * Chest pain or back pain, aorticdissection suspected TECHNIQUE: Scans: Noncontrast chest CT. CTA chest, abdomen and pelvis. Oral contrast: None. IVCM: Administered. 3D Post-processing: MIPS. COMPARISON: None. FINDINGS: VASCULAR: Aorta: No aneurysm, intramural hematoma, dissection or perivascularformation. No extravasation of contrast. Right subclavian artery: Normal. Proximal segment of the right common carotid artery: Normal. Proximal segment of the left common carotid artery: Normal. Left subclavian artery: Normal. Celiac axis: Normal. Superior mesenteric artery: Normal. Common hepatic artery arises from thesuperior mesenteric artery, a congenital variant. Right renal artery: Normal. Left renal artery: Normal. Inferior mesenteric artery: Normal. Right iliac: Normal. Left iliac: Normal. CHEST: Ports and Devices: None. Lungs: Normal. Pleura: Normal. Mediastinum: Coronary artery calcifications. Chest Wall / Breasts: Gynecomastia. ABDOMEN AND PELVIS: Liver: Normal. Biliary System: Normal. Pancreas: Normal. Spleen: Normal. Adrenal Glands: Normal. Kidneys: Normal. Bowel: Moderate size hiatal hernia. No bowel wall thickening ordistention. No inflamed bowel segment. Mesentery, Omentum, and Peritoneum: Normal. Pelvic Organs: Normal. Lymph Nodes: Normal. Bones and Soft Tissues: Thoracolumbar degenerative changes. IMPRESSION: No aortic dissection, intramural hematoma or perivascular inflammation. Noextravasation of contrast. Master Berg MD IMG CT ABD/PELVIS Final Result * ENDOSCOPY, COLON (12/04/2020 11:58 AM EDT) Narrative Transcriptions Yohan Thompson MD - 12/04/2020 11:58 AM EDT Patient Name: Jorje Calle Attending MD:: YOHAN THOMPSON MD Procedure Date: 12/04/2020 11:58 AM Date of : 1955 Age: 65 Admit Type: Outpatient Gender: Male Room: [facility] Referring MD: Arlene Dwyer PA-C Exam Type: Colonoscopy Indications: Surveillance: Personal history of adenomatous polypson last colonoscopy > 5 years ago, Last colonoscopy:2009, Iron deficiency anemia; recent EGD inpatient 11/12/20 Dr. Hill, Medications: Monitored Anesthesia Care Procedure: Informed consent was obtained from the patient after discussion of the indications, limitations, alternatives, benefits, and risks of the procedure. Risks specifically discussed include but are not limited to medication reactions, missed lesions, bleeding, perforation, or the need for emergentsurgery. Throughout the procedure, the patient's bloodpressure, pulse, end-tidal CO2, and oxygen saturations were monitored continuously. The Olympus adult variable colonoscope [id number] #4was introduced through the anus and advanced to thececum, identified by the appendiceal orifice, ileocecalvalve and palpation. The colonoscopy was performed without difficulty. The patient tolerated the procedurefairly well. The quality of the bowel preparation wasgood. Complications: No immediate complications. Estimated blood loss:None. Findings: The perianal and digital rectal examinations were normal. Pertinent negatives include normal sphincter tone. A diffuse area of mild melanosis was found in the ascending colon and in the cecum. Non-bleeding internal hemorrhoids were found during retroflexion. The hemorrhoids were mild. Retroflexion in the right colon was performed. The exam was otherwise without abnormality on direct and retroflexion views. Impression: - Melanosis in the colon. - Non-bleeding internal hemorrhoids. - The examination was otherwise normal on direct and retroflexion views. - No specimens collected. Recommendation: - Repeat colonoscopy in 5 years for surveillance. - To visualize the small bowel, perform videocapsule endoscopy at appointment to be scheduled with Dr. Hill. YOHAN THOMPSON MD 12/04/2020 12:25:10 PM This report has been signed electronically. Number of Addenda: 0 Note Initiated On: 12/04/2020 11:58 AM Procedure Code(s): --- Professional --- G0105, Colorectal cancer screening; colonoscopy on individual at high risk --- Technical --- G0105, Colorectal cancer screening; colonoscopy on individual at high risk Diagnosis Code(s): --- Professional --- Z86.010, Personal history of colonic polyps K63.89, Other specified diseases of intestine K64.8, Other hemorrhoids D50.9, Iron deficiency anemia, unspecified --- Technical --- Z86.010, Personal history of colonic polyps K63.89, Other specified diseases of intestine K64.8, Other hemorrhoids D50.9, Iron deficiency anemia, unspecified CPT copyright 2018 [employer]. All rights reserved. The codes documented in this report are preliminary and upon outpatient coder reviewmay be revised to meet current compliance requirements. Procedure Date: 12/04/2020 11:58:[address] [place] [id number] Arlene GOMEZ GI PROCEDURE ORDERABLES Fin al Result from Last 3 Months or Most Recently Relevant to Health Maintenance Insurance [id number] [place] [id number] [facility] [employer] MEDICARE REPLACEMENT MEDICARE PART A & B [facility] MEDICARE REPLACEMENT MEDICARE PART A & B [facility] MEDICARE REPLACEMENT MEDICARE PART A & B [facility] MEDICARE REPLACEMENT MEDICARE PART A & [facility] MEDIC[facility]PLACEMENT MEDICARE PART A & B [facility] MEDICARE REPLACEMENT MEDICARE PART A & [place] [address] [place] [id number] [facility] [place] [address] [id number] [facility] [place] [id number] [place] [id number] [facility] [address] INSURANCE Advance Directives For more information, please contact: [phone] (9AM - 5PM [facility], Friday-Friday) Documents on File Type Date Recorded Patient Ship'S Captain Expl anation Healthcare Proxy 02/18/2025 4:51 PM * Full Code (Latest Code Status on File) Date Activated Date Inactivated Comments 11/15/2020 8:33 PM 12/04/2020 11:26 AM Question Answer Comments Code Status Confirmed With: Patient * Full Code (Presumed) Date Activated Date Inactivated Comments 12/08/2017 8:34 PM 12/10/2017 1:52 PM * Full Code (Presumed) Date Activated Date Inactivated Comments 12/08/2017 8:24 PM 12/08/2017 8:34 PM * Full Code (Presumed) Date Activated Date Inactivated Comments 10/22/2017 9:11 AM 10/22/2017 5:24 PM Care Teams Administrator Relationship Specialty Start Date End Date Bing Em NP [address] [place] [id number] [email or web address] PCP - General Nurse Practitioner 05/02/25 Elroy Pabon DO [address] [place] [address] Orthopedics & Sports Medicine, [place] [address] [email or web address] Historical LMR Provider 07/09/17 Additional Source Comments The information contained in this document represents components of the legal health record. It is not the complete legal health record.[facility]
--- OUTSIDE RECORDS SUMMARY | 2025-08-02 08:55 | XMS_ITS | Encounter Summary ---
Author Organization [facility] Address [address] [place] [address] Phone Care Team Providers Care Detonator Assembler Name Role Phone Elroy EnglandC Primary Care Provider Bianca Rogers Unavailable [phone] Elroy Pabon DO Unavailable [phone] Elroy England-C Unavailable [phone] Annita Amaral-C Unavailable William Hyman MD Unavailable [phone] Barbie Schmidt NP Primary Care Provider Unknown, Unknown Primary Care Provider Arlene Horton Primary Care Provider Pcp, Unknown Primary Care Provider Liliana Hanna NP Primary Care Pro vider Geoff Gaxiola DO Primary Care Provider [phone] Bing Em NP Primary Care Provider Reason for Referral * MRI/CAT Scan - Closed Specialty Diagnoses / Procedures Referred By Barry t Referred To Contact Radiology Diagnoses Arthrodesis status Procedures MRI Cervical Spine Maged Giron PA Phone: tel: fax: mailto:[email or web address] Referral ID Status Reason Start Date Expiration Date Visits Re quested Visits Authorized [id number] Closed 06/01/2018 06/01/2019 1 1 Encounter Details Date Type Department Care Team (Late st Contact Info) Description 06/01/2018 Ancillary Orders Virtual Department [address] [place] [address] Maged Giron PA [address] [place] [address] [email or web address] Arthrodesis status Social History Tobacco Use Types Packs/Day Years [...] Description 08/29/2025 9:00 AM EST Office Visit [facility] [address] [place] [address] 3rd Floor, [address] [place] [address] Francisco Hendricks MD, [place] 22 [facility], [address] [place] [address] [email or web address] documented as of this encounter Results * MRI CERVICAL SPINE (NEURO) FOCUS WITHOUT CONTRAST (06/04/2018 3:21 PM EDT) Anatomical Region Laterality Modality C-spine Magnetic Resonan ce 06/04/2018 11:3 2 PM EDT Impressions 06/05/2018 10:27 AM EDT 1. Stable cervical spine MRI compared with 04/25/2017. 2. Fusion of C5-C7, with hardware at C5-C6. 3. 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 Neural foraminal narrowing is greatest at C3-C4 bilaterally and on the right at C2-C3, without significant change. 4. No new findings. POS [id number] Narrative 06/05/2018 10:27 AM EDT HISTORY:. Chronic neck pain, left arm tingling into the third, fourth and fifth fingers, left arm weakness. History of prior fusion. COMPARISON: 04/25/2017 cervical spine MRI. TECHNIQUE: Exam performed on a 1.5 Yumiko high-field MRI scanner. Sagittal T1, T2 and STIR, axial T2* gradient echo and 3-D bright fluid sequences were obtained. FINDINGS: Cervical vertebrae are normal in height and alignment. There is fusion of C5-C7 with anterior fusion hardware in place at C5-C6. Appearance is unchanged compared with the prior cervical spine MRI. The cervical spinal cord is normal in signal and morphology. There is congenital narrowing of the spinal canal. Evaluation of individual levels: C2-C3: Uncovertebral and bilateral facet hypertrophy. Moderate right and mild left neural foraminal stenosis. No significant canal stenosis. C3-C4: Mild diffuse disc bulging. Bilateral uncovertebral and facet hypertrophy. There is mild canal stenosis, moderate to severe bilateral neural foraminal stenosis. C4-C5: Mild diffuse disc bulging with indentation upon the anterior thecal sac. Mild central canal stenosis. Facet and uncovertebral hypertrophy bilaterally. Mild bilateral neural foraminal stenosis. C5-C6: Anterior fusion. Mild canal stenosis secondary to congenital narrowing. No significant neural foraminal stenosis. C6-C7: Anterior fusion. Mild canal stenosis secondary to congenital narrowing. Mild facet hypertrophic changes. There is mild bilateral neural foraminal stenosis. C7-T1: No significant canal or neural foraminal stenosis. Procedure Note Alessia Cueto MD - 06/05/2018 HISTORY:. Chronic neck pain, left arm tingling into the third, fourth andfifth fingers, left arm weakness. History of prior fusion. COMPARISON: 04/25/2017 cervical spine MRI. TECHNIQUE: Exam performed on a 1.5 Yumiko high-field MRI scanner.Sagittal T1, T2 and STIR, axial T2* gradient echo and 3-D bright fluidsequences were obtained. FINDINGS: Cervical vertebrae are normal in height and alignment. There is fusion ofC5-C7 with anterior fusion hardware in place at C5-C6. Appearance isunchanged compared with the prior cervical spine MRI. The cervical spinal cord is normal in signal and morphology. There iscongenital narrowing of the spinal canal. Evaluation of individual levels: C2-C3: Uncovertebral and bilateral facet hypertrophy. Moderate right andmild left neural foraminal stenosis. No significant canal stenosis. C3-C4: Mild diffuse disc bulging. Bilateral uncovertebral and facethypertrophy. There is mild canal stenosis, moderate to severe bilateralneural foraminal stenosis. C4-C5: Mild diffuse disc bulging with indentation upon the anterior thecalsac. Mild central canal stenosis. Facet and uncovertebral hypertrophybilaterally. Mild bilateral neural foraminal stenosis. C5-C6: Anterior fusion. Mild canal stenosis secondary to congenitalnarrowing. No significant neural foraminal stenosis. C6-C7: Anterior fusion. Mild canal stenosis secondary to congenitalnarrowing. Mild facet hypertrophic changes. There is mild bilateral neuralforaminal stenosis. C7-T1: No significant canal or neural foraminal stenosis. IMPRESSION: 1. Stable cervical spine MRI compared with 04/25/2017. 2. Fusion of C5-C7, with hardware at C5-C6. 3. Congenitally narrow spinal canal with superimposed mild degenerativechanges. Neural foraminal narrowing is greatest at C3-C4 bilaterally andon the right at C2-C3, without significant change. 4. No new findings. POS [id number] Maged GOMEZ IMG MR XSPECIALTY Final Res ult documented in this encounter Visit Diagnoses Diagnosis Arthrodesis status Arthrodesis status documented in this encounter Additional Health Concerns Infection Onset Date Last Indicated Resolved Time CoV-Risk 07/26/2022 07/26/2022 08/06/2022 2:40 PM EST CoV-Risk 03/27/2024 03/27/2024 04/07/2024 1:21 AM EDT documented as of this encounter Care Teams Detonator Assembler Relationship Specialty Start Date End Date Elroy England PA-C [address] [place] [address] 1 [place] [address] PCP - General 09/04/16 06/08/18 Barbie Schmidt, ADILSON [address] [place] [address] PCP - General Pediatrics 06/09/18 12/29/18 Unknown, Unknown, [address] [place] [address] PCP - General 03/02/19 04/06/19 Arlene Dwyer PA [address] [place] [address] PCP - General Unknown Provider Specialty 04/07/19 02/12/22 Pcp, Unknown PCP - General 02/13/22 07/25/22 Liliana Gonzáles NP [address] [place] [address] [place] [address] [email or web address] PCP - General Family Medicine 07/26/22 10/21/23 Geoff Gaxiola, [address] [place] [address] [address] [place] [address] [email or web address] PCP - General Hospitalist 10/22/23 05/01/25 Bing Em NP [address] [place] [address] 2nd [place] [address] [email or web address] PCP - General Nurse Practitioner 05/02/25 Bianca Rogers [place] [address] [address] [place] [address] Historical LMR Provider 07/09/17 2 Elroy Pabon DO 4 [facility] [place] [address] [email or web address] Historical LMR Provider 07/09/17 Elroy England PA-C [address] [place] [address] Historical LMR Provider 07/09/17 2 Annita Amaral PA-C 4 [facility], [place] [address] [email or web address] Historical LMR Provider 07/09/17 09/29/21 William Hyman MD [address] [place] [address] Historical LMR Provider 07/09/17 2 documented as of this encounter Additional Source Comments The information contained in this document represents components of the legal health record. It is not the complete legal health record.[facility]
--- OUTSIDE RECORDS SUMMARY | 2025-08-02 08:55 | XMS_ITS | Encounter Summary ---
Author Organization [facility] Address [address] [place] [address] Phone Care Team Providers Care Textile Machine Operator Name Role Phone Elroy EnglandC Primary Care Provider [phone] Bianca Rogers Unavailable [phone] Elroy Pabon DO Unavailable Elroy England-C Unavailable Annita Amaral-C Unavailable William Hyman MD Unavailable Barbie Schmidt NP Primary Care Provider Unknown, Unknown Primary Care Provider Arlene Horton Primary Care Provider Pcp, Unknown Primary Care Provider Liliana Hanna NP Primary Care Pro vider Geoff Gaxiola DO Primary Care Provider Bing Em NP Primary Care Provider Encounter Details Date Type Department Care Team (Late st Contact Info) Description 05/05/2018 Ancillary Orders Virtual Department [address] [place] [address] Elroy England PA-C 31 [facility] [address] [place] [address] Dyspnea, unspecified type Social History Tobacco Use Types Packs/Day Years [...] Description 08/29/2025 9:00 AM EST Office Visit [facility] 22 [facility] 3rd Floor, [address] [place] [address] Francisco Hendricks MD, [place] 22 [facility], [address] [place] [address] [email or web address] documented as of this encounter Results * Stress Test Exercise (05/11/2018 11:42 AM EDT) Max BP Systolic 194 mmHg [facility] Max BP Diastolic 80 mmHg [facility] Max HR 126 BPM [facility] Resting HR 45 BPM [facility] Resting BP Systolic 110 mmHg [facility] Resting BP Diastolic 60 mmHg [facility] Peak METS 7.4 METS [facility] Peak HR 123 BPM [facility] Anatomical Region Laterality Modality Heart Other 05/11/2018 10:4 2 AM EDT 05/11/2018 11:41 AM EDT Narrative 05/11/2018 11:54 AM EDT Response to Stress The patient exercised for minutes seconds, achieving 7.4 METS at peak exercise. Baseline blood pressure was 110/60 mmHg, and baseline heart rate was 45 bpm. The patient achieved a peak heart rate of 123 bpm, which is% of their maximum predicted heart rate. Exercise Stress Test Report: Reason for termination: fatigue, leg pain Summary: Resting ECG: SB HR 49 BPM Functional capacity: average Heart rate response to exercise: baseline bradycardic - appropriate response to exercise Blood pressure response to exercise: baseline normotensive - appropriate response to exercise Chest pain: none Arrhythmias: none Conclusion: Patient exercised for 6:17 minutes on a standard Wally protocol achieving 80% MPHR and 7.4 METS. Test terminated due to fatigue, leg pain. Summary: 1. EKG: No EKG evidence of ischemia meeting criteria, however slightly suboptimal HR achieved. 2. Symptoms: No exertional chest pain or symptoms concerning for angina 3. Exercise physiology: Normal heart rate and BP response to exercise. Max HR 126 BPM with normal HR recovery. Max BP 194/80 from baseline BP of 110/60. 02 sat 93% at peak exercise, 97% at rest. Average functional capacity for age noted. 4. Arrhythmia: None Conclusion: Normal ETT based on HR achieved. No ischemic EKG changes. Vital signs at baseline at time of discharge from the lab. EKG reviewed with Dr. Owens. Deisy Hardy, ADILSON, MPH . Elroy England PA-C CV STRESS ORDERABLES Jenny l Result documented in this encounter Visit Diagnoses Diagnosis Dyspnea, unspecified type Dyspnea, unspecified type documented in this encounter Additional Health Concerns Infection Onset Date Last Indicated Resolved Time CoV-Risk 07/26/2022 07/26/2022 08/06/2022 2:40 PM EST CoV-Risk 03/27/2024 03/27/2024 04/07/2024 1:21 AM EDT documented as of this encounter Care Teams Textile Machine Operator Relationship Specialty Start Date End Date Elroy England PA-C [address] [place] [address] PCP - General 09/04/16 06/08/18 Barbie Schmidt NP [address] [place] [address] PCP - General Pediatrics 06/09/18 12/29/18 Unknown, Unknown, [address] [place] [address] PCP - General 03/02/19 04/06/19 Arlene Dwyer PA [address] [place] [address] PCP - General Unknown Provider Specialty 04/07/19 02/12/22 Pcp, Unknown PCP - General 02/13/22 07/25/22 Liliana Gonzáles, ADILSON [address] [place] [address] [email or web address] PCP - General Family Medicine 07/26/22 10/21/23 Geoff Gaxiola DO [address] [place] [address] [address] [place] [address] [email or web address] PCP - General Hospitalist 10/22/23 05/01/25 Bing Em NP 1 [facility] 2nd [place] [address] [email or web address] PCP - General Nurse Practitioner 05/02/25 Bianca Rogers [place] [address] [address] [place] [address] Historical LMR Provider 07/09/17 2 Elroy Pabon DO [address] [place] [address] Orth[facility] Medicine, [place] [address] [email or web address] Historical LMR Provider 07/09/17 Elroy England PA-C [address] [place] [address] Historical LMR Provider 07/09/17 2 Annita Amaral PA-C [address] [place] [address] Orthoped[facility] Medicine, [facility] [place] [address] [email or web address] Historical LMR Provider 07/09/17 09/29/21 William Hyman MD [address] [place] [address] Historical LMR Provider 07/09/17 2 documented as of this encounter Additional Source Comments The information contained in this document represents components of the legal health record. It is not the complete legal health record.[facility]
--- OUTSIDE RECORDS SUMMARY | 2025-08-02 08:55 | XMS_ITS | Encounter Summary ---
Author Organization [facility] Address [address] [place] [address] Phone Care Team Providers Care Food Checker Name Role Phone Elroy Pabon DO Unavailable [phone] Liliana Gonzáles NP Primary Care Pro vider Geoff Gaxiola DO Primary Care Provider [phone] Bing Em NP Primary Care Provider Reason for Referral * Outpatient Procedure - Closed Specialty Diagnoses / Procedures Referred By Contac t Referred To Contact Radiology Diagnoses Localized swelling, mass, or lump of left lower extremity Procedures US Lower Extremity Veins Duplex (Left) Bing Em NP Phone: tel: fax: [email or web address] Referral ID Status Reason Start Date Expiration Date Visits Re quested Visits Authorized [id number] Closed 06/25/2023 07/22/2023 1 1 Encounter Details Date Type Department Care Team (Latest Contact Info) Description 06/24/2023 Transcribe Orders [facility] [address] [place] [address] Bing Em NP [address] [facility] 2nd [place] [address] [email or web address] Localized swelling, mass, or lump of left lower extremity (Primary Dx) Social History Tobacco Use Types [...] Start Date Job End Date Retired from [employer] Not on file Not on file N ot on file documented as of this encounter Plan of Treatment Upcoming Encounters Date Type Department Care Team (Late st Contact Info) Description 08/29/2025 9:00 AM EST Office Visit [facility] [address] [place] [address] 3rd Floor, [address] [place] [address] Francisco Hendricks MD, [place] 22 [facility], [address] [place] [address] documented as of this encounter Results * US Lower Extremity Veins Duplex (Left) (07/01/2023 1:48 PM EDT) Anatomical Region Laterality Modality Hip Left, Thigh Left, Knee L eft, Leg Left, Ankle Left, Foot Left Ultrasound 07/01/2023 2:02 PM EDT Impressions 07/01/2023 2:03 PM EDT * No evidence of left lower extremity deep or superficial venous thrombosis. Narrative 07/01/2023 2:03 PM EDT US LOWER EXTREMITY VEINS DUPLEX (LEFT) TECHNIQUE: VENOUS ULTRASOUND LEFT LOWER EXTREMITY Duplex US of the left common femoral, femoral, proximal deep femoral, proximal great saphenous and popliteal veins were examined using cruz scale compression ultrasound with the aid of color flow and pulsed wave Doppler. INDICATIONS: Swelling and Pain in Limb COMPARISON: FINDINGS: Technically adequate exam demonstrates: The left common femoral, femoral, proximal deep femoral, proximal great saphenous and popliteal veins are normally compressible. There are normal pulsed wave Doppler responses in the common femoral vein with calf augmentation. The visualized calf veins are patent. The contralateral common femoral vein and proximal great saphenous vein are normally compressible. There are normal Doppler responses in the common femoral vein with calf augmentation. Procedure Note Bobby Calzada MD, VINOD - 07/01/2023 US LOWER EXTREMITY VEINS DUPLEX (LEFT) TECHNIQUE: VENOUS ULTRASOUND LEFT LOWER EXTREMITY Duplex US of the left common femoral, femoral, proximal deep femoral,proximal great saphenous and popliteal veins were examined using greyscale compression ultrasound with the aid of color flow and pulsed waveDoppler. INDICATIONS: Swelling and Pain in Limb COMPARISON: FINDINGS: Technically adequate exam demonstrates: The left common femoral, femoral, proximal deep femoral, proximal greatsaphenous and popliteal veins are normally compressible. There are normal pulsed wave Doppler responses in the common femoral veinwith calf augmentation. The visualized calf veins are patent. The contralateral common femoral vein and proximal great saphenous veinare normally compressible. There are normal Doppler responses in thecommon femoral vein with calf augmentation. IMPRESSION: * No evidence of left lower extremity deep or superficial venousthrombosis. us Bing Em FRONT DESK LEAD CV US VASCULAR Final R esult documented in this encounter Visit Diagnoses Diagnosis Localized swelling, mass, or lump of left lower extremity- Primary Localized swelling, mass, or lump of left lower extremity documented in this encounter Additional Health Concerns Infection Onset Date Last Indicated Resolved Time CoV-Risk 03/27/2024 03/27/2024 04/07/2024 1:21 AM EDT documented as of this encounter Care Teams Food Checker Relationship Specialty Start Date End Date Liliana Gonzáles NP [address] [place] [address] [email or web address] PCP - General Family Medicine 07/26/22 10/21/23 Geoff Gaxiola DO [address] [place] [address] [email or web address] PCP - General Hospitalist 10/22/23 05/01/25 Bing Em, ADILSON [address] [place] [address] 2[address] [place] [address] [email or web address] PCP - General Nurse Practitioner 05/02/25 Elroy Pabon DO [address] [place] [address] Orthopedics [facility] Sports Medicine, [place] [address] [email or web address] Historical LMR Provider 07/09/17 documented as of this encounter Additional Source Comments The information contained in this document represents components of the legal health record. It is not the complete legal health record.[facility]
--- OUTSIDE RECORDS SUMMARY | 2025-08-02 08:55 | XMS_ITS | Encounter Summary ---
Author Organization [facility] Address [address] [place] [address] Phone Care Team Providers Care Shift Leader Name Role Phone Elroy England PA-C Primary Care Provider [phone] Bianca Rogers Unavailable [phone] Elroy Pabon DO Unavailable Elroy England-C Unavailable Annita Amaral-C Unavailable [phone] William Hyman MD Unavailable Barbie Schmidt NP Primary Care Provider Unknown, Unknown Primary Care Provider Arlene Horton Primary Care Provider [phone] Pcp, Unknown Primary Care Provider Liliana Hanna NP Primary Care Pro vider Geoff Gaxiola DO Primary Care Provider Bing Em NP Primary Care Provider Encounter Details Date Type Department Care Team (Late st Contact Info) Description 01/03/2017 Procedure [facility] [address] [place] [address] Social History Tobacco Use Types Packs/Day Years [...] Start Date Job End Date Retired from [employer] Not on file Not on file N ot on file documented as of this encounter Plan of Treatment Upcoming Encounters Date Type Department Care Team (Late Contact Info) Description 08/29/2025 9:00 AM EST Office Visit [facility] 22 [facility] 3rd [facility], [address] [place] [address] Francisco Hendricks MD, [place] 22 [facility], [address] [address] [email or web address] documented as of this encounter Visit Diagnoses Not on filedocumented in this encounter Additional Health Concerns Infection Onset Date Last Indicated Resolved Time CoV-Risk 07/26/2022 07/26/2022 08/06/2022 2:40 PM EST CoV-Risk 03/27/2024 03/27/2024 04/07/2024 1:21 AM EDT documented as of this encounter Care Teams Shift Leader Relationship Specialty Start Date End Date Elroy England PA-C [address] [place] [address] [address] [place] [address] PCP - General 09/04/16 06/08/18 Barbie Schmidt NP [address] [place] [address] PCP - General Pediatrics 06/09/18 12/29/18 Unknown, Unknown, [address] [place] [address] PCP - General 03/02/19 04/06/19 Arlene Dwyer PA [address] [place] [address] PCP - General Unknown Provider Specialty 04/07/19 02/12/22 Pcp, Unknown PCP - General 02/13/22 07/25/22 Liliana Gonzáles NP [address] [place] [address] [email or web address] PCP - General Family Medicine 07/26/22 10/21/23 Geoff Gaxiola DO [address] [place] [address] [address] [place] [address] [email or web address] PCP - General Hospitalist 10/22/23 05/01/25 Bing Em NP 1 [facility] 2nd [place] [address] [email or web address] PCP - General Nurse Practitioner 05/02/25 Bianca Rogers PA [facility] [place] [address] Historical LMR Provider 07/09/17 2 Elroy Pabon DO [address] [place] [address] Orthoped[facility] Sports Medicine, [place] [address] [email or web address] Historical LMR Provider 07/09/17 Elroy England PA-C [address] [place] [address] Historical LMR Provider 07/09/17 2 Annita Amaral PA-C [address] [place] [address] Orthopedics [facility] Sports Medicine, [facility] [place] [address] [email or web address] Historical LMR Provider 07/09/17 09/29/21 William Hyman MD [address] [place] [address] Historical LMR Provider 07/09/17 2 documented as of this encounter Additional Source Comments The information contained in this document represents components of the legal health record. It is not the complete legal health record.[facility]
--- OUTSIDE RECORDS SUMMARY | 2025-08-02 08:55 | XMS_ITS | Encounter Summary ---
Author Organization [facility] Address [address] [place] [address] Phone Care Team Providers Care Photoengraving Sketch Maker Name Role Phone Elroy EnglandC Primary Care Provider Bianca Rogers Unavailable [phone] Elroy Pabon DO Unavailable Elroy England-C Unavailable Annita Amaral-C Unavailable William Hyman MD Unavailable [phone] Barbie Schmidt NP Primary Care Provider Unknown, Unknown Primary Care Provider Arlene Horton Primary Care Provider [phone] Pcp, Unknown Primary Care Provider Liliana Hanna NP Primary Care Pro vider Geoff Gaxiola DO Primary Care Provider [phone] Bing Em NP Primary Care Provider Encounter Details Date Type Department Care Team (Late st Contact Info) Description 12/08/2017 Procedure Pass [facility], Ct Scan - [address] [address] Social History Tobacco Use Types Packs/Day Years [...] Description 08/29/2025 9:00 AM EST Office Visit [facility] 22 [facility] 3rd Floor, [address] [place] [address] Francisco Hendricks MD, MS 22 [facility], [address] [address] [email or web address] documented as of this encounter Visit Diagnoses Not on filedocumented in this encounter Additional Health Concerns Infection Onset Date Last Indicated Resolved Time CoV-Risk 07/26/2022 07/26/2022 08/06/2022 2:40 PM EST CoV-Risk 03/27/2024 03/27/2024 04/07/2024 1:21 AM EDT documented as of this encounter Care Teams Photoengraving Sketch Maker Relationship Specialty Start Date End Date Elroy England PA-C [address] [place] [address] [address] [place] [address] PCP - General 09/04/16 06/08/18 Barbie Schmidt NP [address] [place], [place] [id number] PCP - General Pediatrics 06/09/18 12/29/18 Unknown, Unknown, [address] [place] [address] PCP - General 03/02/19 04/06/19 Arlene Dwyer PA 299 [facility] 234 [place] [address] PCP - General Unknown Provider Specialty 04/07/19 02/12/22 Pcp, Unknown PCP - General 02/13/22 07/25/22 Liliana Gonzáles, ADILSON [address] [place] [address] [email or web address] PCP - General Family Medicine 07/26/22 10/21/23 Geoff Gaxiola DO [address] [place] [address] 220 [place] [address] [email or web address] PCP - General Hospitalist 10/22/23 05/01/25 Bing Em, ADILSON [address] [place] [address] 2nd [place] [address] [email or web address] PCP - General Nurse Practitioner 05/02/25 Bianca Rogers PA [facility] [place] [address] Historical LMR Provider 07/09/17 2 Elroy Pabon DO [address] [place] [address] Orthopedics [facility] Sports Medicine, [place] [address] [email or web address] Historical LMR Provider 07/09/17 Elroy England PA-C [address] [place] [address] 1 [place] [address] Historical LMR Provider 07/09/17 2 Annita Amaral PA-C 4 [facility] Orthopedics [facility] Sports Medicine, [facility] [place] [address] [email or web address] Historical LMR Provider 07/09/17 09/29/21 William Hyman MD [address] [place] [address] Historical LMR Provider 07/09/17 2 documented as of this encounter Additional Source Comments The information contained in this document represents components of the legal health record. It is not the complete legal health record.[facility]
--- OUTSIDE RECORDS SUMMARY | 2025-08-02 08:55 | XMS_ITS | Encounter Summary ---
Author Organization [facility] Address [address] [place] [address] Phone Care Team Providers Care Radio Officer Name Role Phone Elroy England PA-C Primary Care Provider [phone] Bianca Rogers Unavailable [phone] Elroy Pabon DO Unavailable Elroy England-C [...] [facility] [address] [place] [address] Social History Tobacco Use Types Packs/Day Years [...] Start Date Job End Date Retired from [employer] Not on file Not on file N ot on file documented as of this encounter Plan of Treatment Upcoming Encounters Date Type Department Care Team (Late Contact Info) Description 08/29/2025 9:00 AM EST Office Visit [facility] 22 [facility] 3rd [facility], [address] [place] [address] Francisco Hendricks MD, MS 22 [facility], [address] [address] [email or web address] documented as of this encounter Visit Diagnoses Not on filedocumented in this encounter Additional Health Concerns Infection Onset Date Last Indicated Resolved Time CoV-Risk 07/26/2022 07/26/2022 08/06/2022 2:40 PM EST CoV-Risk 03/27/2024 03/27/2024 04/07/2024 1:21 AM EDT documented as of this encounter Care Teams Radio Officer Relationship Specialty Start Date End Date Elroy England PA-C [address] [place] [address] [address] [place] [address] PCP - General 09/04/16 06/08/18 Barbie Schmidt NP [address] [place] [address] PCP - General Pediatrics 06/09/18 12/29/18 Unknown, Unknown, [address] [place] [address] PCP - General 03/02/19 04/06/19 Arlene Dwyer PA [address] [place] [address] PCP - General Unknown Provider Specialty 04/07/19 02/12/22 Pcp, Unknown PCP - General 02/13/22 07/25/22 Liliana Gonzáles NP [address] [place] [address] [email or web address] PCP - General Family Medicine 07/26/22 10/21/23 Geoff Gaxiola DO [address] [place] [address] 220 [place] [address] [email or web address] PCP - General Hospitalist 10/22/23 05/01/25 Bing Em NP 1 [facility] 2nd [place] [address] [email or web address] PCP - General Nurse Practitioner 05/02/25 Bianca Rogers PA [facility] [place] [address] Historical LMR Provider 07/09/17 2 Elroy Pabon DO [address] [place] [address] Orthopedics [facility] Sports Medicine, [place] [address] [email or web address] Historical LMR Provider 07/09/17 Elroy England PA-C [address] [place] [address] Historical LMR Provider 07/09/17 2 Annita Amaral PA-C [address] [place] [address] Orthopedics & Sports Medicine, [facility] [place] [address] [email or web address] Historical LMR Provider 07/09/17 09/29/21 William Hyman MD [address] [place] [address] Historical LMR Provider 07/09/17 2 documented as of this encounter Additional Source Comments The information contained in this document represents components of the legal health record. It is not the complete legal health record.[facility]
--- OUTSIDE RECORDS SUMMARY | 2025-08-02 08:55 | XMS_ITS | Encounter Summary ---
Author Organization [facility] Address [address] [place] [address] Phone Care Team Providers Care Manager Regional Sales Name Role Phone Bianca Rogers Unavailable [phone] Elroy Pabon DO Unavailable Elroy England PA-C Unavailable Annita Amaral PA-C Unavailable [phone] William Hyman MD Unavailable [phone] Barbie Schmidt NP Primary Care Provider Unknown, Unknown Primary Care Provider Arlene Horton Primary Care Provider Pcp, Unknown Primary Care Provider Liliana Hanna NP Primary Care Pro vider Geoff Gaxiola DO Primary Care Provider [phone] Bing Em NP Primary Care Provider Reason for Visit * Reason Onset Date Comments Medication Refill 07/28/2018 Encounter Details Date Type Department Care Team (Late st Contact Info) Description 07/28/2018 Telephone [facility] 15 [facility], [address] [place] [address] Alvarado Siddiqi MD, MSc [address] [place] [address] [email or web address] Medication Refill Social History Tobacco Use Types [...] Description 08/29/2025 9:00 AM EST Office Visit [facility] [address] [place] [address] 3rd [facility], [address] [place] [address] Francisco Hendricks MD, MS 22 [facility], [address] [address] [email or web address] documented as of this encounter Visit Diagnoses Not on filedocumented in this encounter Additional Health Concerns Infection Onset Date Last Indicated Resolved Time CoV-Risk 07/26/2022 07/26/2022 08/06/2022 2:40 PM EST CoV-Risk 03/27/2024 03/27/2024 04/07/2024 1:21 AM EDT documented as of this encounter Care Teams Manager Regional Sales Relationship Specialty Start Date End Date Barbie Schmidt NP [address] [place] [address] PCP - General Pediatrics 06/09/18 12/29/18 Unknown, Unknown, [address] [place] [address] PCP - General 03/02/19 04/06/19 Arlene Dwyer PA [address] [place] [address] PCP - General Unknown Provider Specialty 04/07/19 02/12/22 Pcp, Unknown PCP - General 02/13/22 07/25/22 Liliana Gonzáles NP [address] [place] [address] [email or web address] PCP - General Family Medicine 07/26/22 10/21/23 Geoff Gaxiola DO [address] [place] [address] [email or web address] PCP - General Hospitalist 10/22/23 05/01/25 Bing Em NP [address] [place] [address] 2nd [place] [address] [email or web address] PCP - General Nurse Practitioner 05/02/25 Bianca Rogers PA [facility] [place] [address] Historical LMR Provider 07/09/17 2 Elroy Pabon DO [address] [place] [address] Orthopedics [facility] Sports Medicine, [place] [address] [email or web address] Historical LMR Provider 07/09/17 Elroy England PA-C [address] [place] [address] 1 [place] [address] Historical LMR Provider 07/09/17 2 Annita Amaral PA-C 4 [facility] Orthopedics & Sports Medicine, [facility] [place] [address] [email or web address] Historical LMR Provider 07/09/17 09/29/21 William Hyman MD [address] [place] [address] Historical LMR Provider 07/09/17 2 documented as of this encounter Additional Source Comments The information contained in this document represents components of the legal health record. It is not the complete legal health record.[facility]
--- OUTSIDE RECORDS SUMMARY | 2025-08-02 08:55 | XMS_ITS | Encounter Summary ---
Author Organization [facility] Address [address] [place] [address] Phone Care Team Providers Care Driver/Guide Name Role Phone Bianca Rogers Unavailable [phone] Elroy Pabon DO Unavailable Elroy England PA-C Unavailable Annita Amaral PA-C Unavailable William Hyman MD Unavailable Arlene Dwyer Primary Care Provider Pcp, Unknown Primary Care Provider UnavailLiliana Wills NP Primary Care Pro vider Geoff Gaxiola DO Primary Care Provider Bing Em NP Primary Care Provider Encounter Details Date Type Department Care Team (Latest Contact Info) Description 09/12/2021 Transcribe Orders Virtual Department 30 [place] [address] Arlene Dwyer PA [address] [place] [address] Localized swelling, mass and lump, right lower limb (Primary Dx) Social History Tobacco Use Types [...] Start Date Job End Date Retired from [employer] Not on file Not on file N ot on file documented as of this encounter Plan of Treatment Upcoming Encounters Date Type Department Care Team (Late st Contact Info) Description 08/29/2025 9:00 AM EST Office Visit [facility] [address] [place] [address] 3rd Floor, [address] [place] [address] Francisco Hendricks MD, MS 22 [facility], [address] [place] [address] [email or web address] documented as of this encounter Results * US Lower Extremity Veins Duplex (Right) (09/13/2021 1:23 PM EST) Anatomical Region Laterality Modality Hip Right, Thigh Right, Knee Right, Leg Right, Ankle Right, Foot Right Ultrasound 09/13/2021 1:37 PM EST Impressions 09/13/2021 1:38 PM EST No evidence of right lower extremity deep venous thrombosis. Narrative 09/13/2021 1:38 PM EST COMPARISON: 05/26/2015. RIGHT LOWER EXTREMITY DOPPLER VENOUS ULTRASOUND FINDINGS: There is no evidence of right lower extremity deep venous thrombosis from the common femoral vein to the trifurcation veins and ankle posterior tibial veins. The contralateral common femoral vein is also patent. Deep veins are compressible with normal color flow and augmentation. No popliteal cyst. Procedure Note Master Najera MD - 09/13/2021 COMPARISON: 05/26/2015. RIGHT LOWER EXTREMITY DOPPLER VENOUS ULTRASOUND FINDINGS: There is no evidence of right lower extremity deep venous thrombosis fromthe common femoral vein to the trifurcation veins and ankle posteriortibial veins. The contralateral common femoral vein is also patent. Deepveins are compressible with normal color flow and augmentation. Nopopliteal cyst. IMPRESSION: No evidence of right lower extremity deep venous thrombosis. us Arlene GOMEZ CV US VASCULAR Final Resul t documented in this encounter Visit Diagnoses Diagnosis Localized swelling, mass and lump, right lower limb- Primary Localized swelling, mass and lump, right lower limb documented in this encounter Additional Health Concerns Infection Onset Date Last Indicated Resolved Time CoV-Risk 07/26/2022 07/26/2022 08/06/2022 2:40 PM EST CoV-Risk 03/27/2024 03/27/2024 04/07/2024 1:21 AM EDT documented as of this encounter Care Teams Driver/Guide Relationship Specialty Start Date End Date Arlene Dwyer PA [address] [place] [address] 234 [place] [address] PCP - General Unknown Provider Specialty 04/07/19 02/12/22 Pcp, Unknown PCP - General 02/13/22 07/25/22 Liliana Gonzáles NP [address] [place] [address] [place] [address] [email or web address] PCP - General Family Medicine 07/26/22 10/21/23 Geoff Gaxiola DO [address] [place] [address] 220 [place] [address] [email or web address] PCP - General Hospitalist 10/22/23 05/01/25 Bing Em NP [address] [facility] 2nd [place] [address] [email or web address] PCP - General Nurse Practitioner 05/02/25 Bianca Rogers PA [facility] [place] [address] Historical LMR Provider 07/09/17 2 Elroy Pabon DO 4 [facility] Orthopedics & Sports Medicine, [place] [address] [email or web address] Historical LMR Provider 07/09/17 Elroy England PA-C [address] [place] [address] [place] [address] Historical LMR Provider 07/09/17 2 Annita Amaral PA-C 4 [facility] Orth[facility] Sports Medicine, [place] [address] jose Historical LMR Provider 07/09/17 09/29/21 William Hyman MD [address] [place] [address] Historical LMR Provider 07/09/17 2 documented as of this encounter Additional Source Comments The information contained in this document represents components of the legal health record. It is not the complete legal health record.[facility]
--- OUTSIDE RECORDS SUMMARY | 2025-08-02 08:55 | XMS_ITS | Clinical Summary ---
Author Organization [address] Address [address] [place] [phone] Phone Care Team Providers Care Physical Science Teacher Name Role Phone Bing Em NP Primary Care Provider [phone] Allergies Active Allergy Reactions Criticality Noted Date [...] 1 VIAL VIA NEBULIZER EVERY 6 HOURS 07/20/20 18 Active albuterol HFA (PROAIR HFA ; PROVENTIL [...] MOUTH EVERY OTHER DAY FOR 45 DAYS. 12/09/19 25 Active fluticasone propionate (FLONASE) 50 mcg/actuation nasal [...] by mouth 1 (one) time each day. 12/30/19 25 Active hydrOXYzine HCL (ATARAX) 25 mg tablet TAKE 1 TABLET 3 TIMES A DAY BY ORAL ROUTE NEEDED, FOR ANXIETY. 11/17/19 25 Active levalbuterol (XOPENEX HFA) 45 mcg/actuation inhaler Inhale 2 puffs by mouth once daily as needed. 12/21/19 13 Active losartan (COZAAR) 100 mg tablet Take 1 tablet (100 mg total) by mouth 1 (one) time each day. Active montelukast (SINGULAIR) 10 mg tablet Take 1 tablet (10 mg total) by mouth 1 (one) time each day. Active multivitamin tablet 1 TAB DAILY Active Botox 200 unit injection Every 90 days 06/04/20 22 Active oxyCODONE (ROXICODONE) 5 mg immediate release tablet TAKE 1-2 TABLETS BY MOUTH DAILY NEEDED FOR 28 DAYS Active pantoprazole (PROTONIX) 40 mg EC tablet Take 1 tablet (40 mg total) by mouth 2 (two) times a day. Active sertraline (ZOLOFT) 50 mg tablet Take 1 tablet (50 mg total) by mouth 1 (one) time each day. 03/03/20 24 Active terazosin (HYTRIN) 1 mg capsule Take 1 capsule (1 mg total) by mouth 1 (one) time each day. 12/15/19 25 Active Spiriva Respimat 2.5 mcg/actuation inhalation spray INHALE 2 PUFFS INTO THE LUNGS EVERY DAY 01/05/20 25 Active loratadine (CLARITIN) 10 mg tablet Take 1 tablet (10 mg total) by mouth 1 (one) time each day if needed. Active senna (SENOKOT) 8.6 mg tablet Take 3 tablets (25.8 mg total) by mouth 1 (one) time each day. Active predniSONE (DELTASONE) 20 mg tabletIndicati ons:Pneumocyst is jirovecii pneumonia Take 2 tablets (40 mg total) by mouth 1 (one) time each day. For 5 days started on 04-16. Then stop. Active levoFLOXacin (LEVAQUIN) 500 mg tabletIndicati ons:pneumococc al pneumonia Take 1 tablet (500 mg total) by mouth 1 (one) time each day. For 5 days starting on 04-16. Then Stop. Active relugolix (ORGOVYX) 120 mg Take 1 tablet (120 mg total) by mouth 1 (one) time each day 01/21/20 Active tamsulosin (FLOMAX) 0.4 mg 24 hr capsule TAKE 1 CAPSULE BY MOUTH 2 TIMES A DAY. 60 each 07/05/20 25 Active tamsulosin (FLOMAX) 0.4 mg 24 hr capsule Take 1 capsule (0.4 mg total) by mouth 2 (two) times a day. 60 capsule 1 06/08/20 25 025 Discontinued Active Problems Problem Noted Date Diagnosed Date Prostate cancer ([facility] V24, [facility] V28) 01/18 Encounters Date Type Department Care Team Description 06/29/2025 12:46 PM EDT - 06/29/2025 11:59 PM EDT Hospital Encounter [facility] Radiation Oncology [address] [place] [address] Марина Eid NP Prostate cancer ([facility] V24, [facility] V28) (Primary Dx) Discharge Disposition: Home or Self Care from Last 3 Months Family History Medical History Relation Name Comments Stomach cancer Mother Liver cancer Mother's Brother Relation Name Status Comments Mother Mother's Brother Social History Tobacco Use Types Packs/Day Years Used Date Smoking Tobacco: Former Cigarettes 0 Q uit: 1994 Smokeless Tobacco: Never Tobacco [...] Sign Reading Time Taken Comments Blood Pressure 147/69 06/29/2025 12:50 PM EDT Pulse 57 06/29/2025 12:50 PM EDT Temperature 35.6 C (96 F) 06/29/2025 12:50 PM EDT Respiratory Rate 16 06/29/2025 12:50 PM EDT Oxygen Saturation 97% 06/29/2025 12:50 PM EDT Inhaled Oxygen Concentration - - Weight 88.5 kg (195 lb) 06/29/2025 12:50 PM EDT Height 162.6 cm (5' 4 ) 06/29/2025 12:50 PM EDT Body Mass Index 33.47 06/29/2025 12:50 PM EDT Plan of Treatment Health Maintenance Due Date Last Done Comments Colorectal Cancer Screening: Colonoscopy 1955 RSV Immunization Adult Patients (1 - Risk 50-74 years 1-dose series) 2004 Abdominal Aortic Aneurysm (AAA) Screen 09/08/2024 Hepatitis C Screening 09/08/2024 Medicare Annual Wellness Visit 09/08/2024 Social Influencers of Health Screening 09/08/2024 Depression Screening 09/22/2024 Hypertension/CHF/CAD Annual BMP Blood Test 01/18/2025 02/21/2023, 12/20/2020 COVID-19 Vaccine (8 - Pfizer risk season) 2025 06/06/2025, 06/24/2024, 10/11/2022, Additional history exists Falls Risk Assessment 01/18/2026 01/18/2025 Cholesterol Screening (Lipid Panel) 02/22/2028 02/21/2023 DTaP,Tdap,and Td Vaccines (3 - Td or Tdap) 07/06/2030 07/06/2020, 07/04/2008 Zoster Vaccines Completed 05/16/2022, 01/20, 01/05/2015 Colorectal Cancer Screening: Stool Based Tests (FOBT/FIT) Discontinued 06/28/2022 Pneumococcal Vaccine: 50+ Years Completed 06/17/2023, 11/16/2022, 08/11/2019, Additional history exists Influenza Vaccine Completed 06/06/2025, , 06/17/2023, Additional history exists HIB Vaccines Aged Out [...] on patient's age to complete this topic [place] [address] [place] [id number] MEDICAID - [place] [facility] MEDICARE ADVANTAGE Care Teams Physical Science Teacher Relationship Specialty Start Date End Date Bing Em NP [address] [place], [place] PCP - General Internal Medicine 09/08/24
--- OUTSIDE RECORDS SUMMARY | 2025-08-02 08:55 | XMS_ITS | Encounter Summary ---
Author Organization [facility] Address [address] [place] [address] Phone Care Team Providers Care Contract Administrator Name Role Phone Bianca Rogers Unavailable [phone] Elroy Pabon DO Unavailable Elroy England PA-C Unavailable Annita Amaral PA-C Unavailable William Hyman MD Unavailable Arlene Dwyer Primary Care Provider Pcp, Unknown Primary Care Provider UnavailLiliana Wills NP Primary Care Pro vider Geoff Gaxiola DO Primary Care Provider Bing Em NP Primary Care Provider Encounter Details Date Type Department Care Team (Late st Contact Info) Description 06/15/2020 Ancillary Orders Non-Invasive Cardiology 30 [place] [address] Nas Graham MD [address] [address] [email or web address] Ventricular tachycardia; Dyspnea on exertion Social History Tobacco Use Types Packs/Day Years [...] Description 08/29/2025 9:00 AM EST Office Visit [facility] [address] [place] [address] 3rd Floor, [address] [place] [address] Francisco Hendricks MD, MS 22 [facility], [address] [place] [address] [email or web address] documented as of this encounter Results * NC Stress Result for Nuclear Stress Test (06/15/2020 10:31 AM EDT) Max BP Systolic 240 mmHg [facility] Max BP Diastolic 100 mmHg [facility] Max HR 133 BPM [facility] Resting HR 55 BPM [facility] Resting BP Systolic 152 mmHg [facility] Resting BP Diastolic 76 mmHg [facility] Peak METS 3.9 METS [facility] Peak HR 127 BPM [facility] Anatomical Region Laterality Modality Heart Other 06/15/2020 9:55 AM EDT 06/15/2020 10:28 AM EDT Narrative 06/15/2020 12:28 PM EDT Response to Stress The patient exercised for minutes seconds, achieving 3.9 METS at peak exercise. Baseline blood pressure was 152/76 mmHg, and baseline heart rate was 55 bpm. The patient achieved a peak heart rate of 127 bpm, which is% of their maximum predicted heart rate. REPORT- Pt exercised for 6:30 min on a ANNABELLA protocol achieving 7.2 METS. Test terminated due to shortness of breath. Baseline resting HR was 54 bpm. Max heart rate achieved was 133 (85%MPHR). 1. EKG - Baseline EKG showed SB 54bpm. No ischemic EKG changes during exercise. 2. SYMPTOMS - No chest pain, he did report an increase in shortness of breath during exercise which resolved in recovery. 3. EXERCISE PHYSIOLOGY - Average functional capacity for age. Hypertensive response to exercise. BP at rest 144/78, BP 240/110 at peak exercise, BP 154/84 on discharge from stress lab. 4. ARRHYTHMIAS - rare PAC Conclusion - Normal stress test, EKG's were without concern for ischemia or symptoms for angina. Nuclear images pending and will be reported separately. Simi Muniz NP with Dr. Jeffery. us Nas Graham MD CV NM CARDIAC Final Re sult documented in this encounter Visit Diagnoses Diagnosis Ventricular tachycardia Paroxysmal ventricular tachycardia Dyspnea on exertion Other dyspnea and respiratory abnormality Ventricular tachycardia Paroxysmal ventricular tachycardia Dyspnea on exertion Other dyspnea and respiratory abnormality documented in this encounter Additional Health Concerns Infection Onset Date Last Indicated Resolved Time CoV-Risk 07/26/2022 07/26/2022 08/06/2022 2:40 PM EST CoV-Risk 03/27/2024 03/27/2024 04/07/2024 1:21 AM EDT documented as of this encounter Care Teams Contract Administrator Relationship Specialty Start Date End Date Arlene Dwyer PA [address] [place] [address] 234 [place] [address] PCP - General Unknown Provider Specialty 04/07/19 02/12/22 Pcp, Unknown PCP - General 02/13/22 07/25/22 Liliana Gonzáles NP [address] [place] [address] [place] [address] [email or web address] PCP - General Family Medicine 07/26/22 10/21/23 Geoff Gaxiola DO [address] [place] [address] 220 [place] [address] [email or web address] PCP - General Hospitalist 10/22/23 05/01/25 Bing Em NP [address] [address] [email or web address] PCP - General Nurse Practitioner 05/02/25 Bianca Rogers PA [facility] [place] [address] Historical LMR Provider 07/09/17 2 Elroy Pabon DO 4 [facility], [place] [address] Historical LMR Provider 07/09/17 Elroy England PA-C [address] [place] [address] Historical LMR Provider 07/09/17 2 Annita Amaral PA-C 4 [facility], [place] [address] jose Historical LMR Provider 07/09/17 09/29/21 William Hyman MD [address] [place] [address] Historical LMR Provider 07/09/17 2 documented as of this encounter Additional Source Comments The information contained in this document represents components of the legal health record. It is not the complete legal health record.[facility]
--- OUTSIDE RECORDS SUMMARY | 2025-08-02 08:55 | XMS_ITS | Encounter Summary ---
Author Organization [facility] Address [address] [place] [address] Phone Care Team Providers Care Family Nurse Practitioner Name Role Phone Bianca Rogers Unavailable [phone] Elroy Pabon DO Unavailable Elroy England PA-C Unavailable Annita Amaral PA-C Unavailable William Hyman MD Unavailable Arlene Dwyer Primary Care Provider Pcp, Unknown Primary Care Provider UnavailLiliana Wills NP Primary Care Pro vider Geoff Gaxiola DO Primary Care Provider Bing Em NP Primary Care Provider Encounter Details Date Type Department Care Team (Latest Contact Info) Description 07/12/2020 Ancillary [facility] [address] 3rd Floor, [address] [place], [place] [id number] Roney Thorne DO 22 [facility] [address] [place] [address] [email or web address] Claudication in peripheral vascular disease; Other specified symptoms and signs involving the circulatory and respiratory systems Social History Tobacco Use Types Packs/Day Years [...] Description 08/29/2025 9:00 AM EST Office Visit [facility] [address] [place] [address] 3rd Floor, [address] [place] [address] Francisco Hendricks MD, MS 22 [facility], [address] [place] [address] [email or web address] documented as of this encounter Results * US Aorta IVC Iliac Grafts Arteries or Veins Duplex Limited (07/12/2020 10:51 AM EDT) Anatomical Region Laterality Modality Heart, Vascular, Thoracic Vasculature Ultrasound Narrative 07/13/2020 3:21 PM EDT See scanned document. us Roney Thorne DO IMG US ABDOMEN Final Result documented in this encounter Visit Diagnoses Diagnosis Dyspnea on exertion Other dyspnea and respiratory abnormality Varicose veins of bilateral lower extremities with other complications Claudication in peripheral vascular disease Other specified symptoms and signs involving the circulatory and respiratory systems Claudication in peripheral vascular disease Other specified symptoms and signs involving the circulatory and respiratory systems documented in this encounter Additional Health Concerns Infection Onset Date Last Indicated Resolved Time CoV-Risk 07/26/2022 07/26/2022 08/06/2022 2:40 PM EST CoV-Risk 03/27/2024 03/27/2024 04/07/2024 1:21 AM EDT documented as of this encounter Care Teams Family Nurse Practitioner Relationship Specialty Start Date End Date Arlene Dwyer PA 299 [facility] 234 [place] [address] PCP - General Unknown Provider Specialty 04/07/19 02/12/22 Pcp, Unknown PCP - General 02/13/22 07/25/22 Liliana Gonzáles NP [address] [place] [address] [email or web address] PCP - General Family Medicine 07/26/22 10/21/23 Geoff Gaxiola DO [address] [place] [address] 220 [place] [address] [email or web address] PCP - General Hospitalist 10/22/23 05/01/25 Bing Em, ADILSON 1 [facility] 2nd [place] [address] [email or web address] PCP - General Nurse Practitioner 05/02/25 Bianca Rogers PA [facility] [address] Historical LMR Provider 07/09/17 2 Elroy Pabon DO [address] [place] [address] Orthopedics & Sports Medicine, [place] [address] [email or web address] Historical LMR Provider 07/09/17 Elroy England PA-C [address] [place] [address] 1 [place] [address] Historical LMR Provider 07/09/17 2 Annita Amaral PA-C 4 [facility], [place] [address] [email or web address] Historical LMR Provider 07/09/17 09/29/21 William Hyman MD [address] [place] [address] Historical LMR Provider 07/09/17 2 documented as of this encounter Additional Source Comments The information contained in this document represents components of the legal health record. It is not the complete legal health record.[facility]
--- OUTSIDE RECORDS SUMMARY | 2025-08-02 08:55 | XMS_ITS | Encounter Summary ---
Author Organization [facility] Address [address] [place] [address] Phone Care Team Providers Care Derrick Helper Name Role Phone Bianca Rogers Unavailable [phone] Elroy Pabon DO Unavailable Elroy England PA-C Unavailable Annita Amaral PA-C Unavailable William Hyman MD Unavailable Arlene Dwyer Primary Care Provider [phone] Pcp, Unknown Primary Care Provider UnavailLiliana Wills NP Primary Care Pro vider Geoff Gaxiola DO Primary Care Provider Bing Em NP Primary Care Provider Encounter Details Date Type Department Care Team (Late st Contact Info) Description 09/29/2021 Procedure [facility], Ct Scan - [address] [address] Social History Tobacco Use Types Packs/Day Years [...] Start Date Job End Date Retired from [employer] Not on file Not on file N ot on file documented as of this encounter Functional Status * Calculated C-SSRS Risk Score (Lifetime/Recent) Answer Date of Assessment Author No Risk Indicated 09/29/2021 2:09 PM Geovanna Thomson RN * [place] Suicide Severity Rating Scale (Screener/Recent Self-Report) Question Answer Date of Assessment Author 1. Wish to be (Past 1 Month) No 022 2:09 PM Geovanna Martinez RN 2. Non-Specific Active Suici alison Thoughts (Past 1 Month) No 09/29/2021 2:09 PM Garry Martinez RN 6. Suicidal Behavior (Lifetime) No 2:09 PM Geovanna Martinez RN documented as of this encounter Plan of Treatment Upcoming Encounters Date Type Department Care Team (Late st Contact Info) Description 08/29/2025 9:00 AM EST Office Visit [facility] [address] [place] [address] 3rd Floor, [address] [place] [address] Francisco Hendricks MD, MS [address] [place] [address], [address] [address] [email or web address] documented as of this encounter Visit Diagnoses Not on filedocumented in this encounter Additional Health Concerns Infection Onset Date Last Indicated Resolved Time CoV-Risk 07/26/2022 07/26/2022 08/06/2022 2:40 PM EST CoV-Risk 03/27/2024 03/27/2024 04/07/2024 1:21 AM EDT documented as of this encounter Care Teams Derrick Helper Relationship Specialty Start Date End Date Arlene Dwyer PA [address] [place], [place] [address], [place] [address] PCP - General Unknown Provider Specialty 04/07/19 02/12/22 Pcp, Unknown PCP - General 02/13/22 07/25/22 Liliana Gonzáles, ADILSON [address] [place] [address] [email or web address] PCP - General Family Medicine 07/26/22 10/21/23 Geoff Gaxiola DO [address] [place] [address] 220 [place] [address] [email or web address] PCP - General Hospitalist 10/22/23 05/01/25 Bing Em, ADILSON [address] [place] [address] 2nd [place] [address] [email or web address] PCP - General Nurse Practitioner 05/02/25 Bianca Rogers [place] [place] [address] Historical LMR Provider 07/09/17 2 Elroy Pabon DO [address] [place] [address] Orthopedics [facility] Sports Medicine, [place] [address] [email or web address] Historical LMR Provider 07/09/17 Elroy Engalnd PA-C [address] [place] [address] 1 [place] [address] Historical LMR Provider 07/09/17 2 Annita Amaral PA-C 4 [facility], [facility] [place] [address] [email or web address] Historical LMR Provider 07/09/17 09/29/21 William Hyman MD [address] [place] [address] Historical LMR Provider 07/09/17 2 documented as of this encounter Additional Source Comments The information contained in this document represents components of the legal health record. It is not the complete legal health record.[facility]
--- OUTSIDE RECORDS SUMMARY | 2025-08-02 08:55 | XMS_ITS | Encounter Summary ---
Author Organization [facility] Address [address] [place] [address] Phone Care Team Providers Care Police Surgeon Name Role Phone Bianca Rogers Unavailable [phone] Elroy Pabon DO Unavailable Elroy England PA-C Unavailable Annita Amaral PA-C Unavailable William Hyman MD Unavailable Arlene Dwyer Primary Care Provider Pcp, Unknown Primary Care Provider UnavailLiliana Wills NP Primary Care Pro vider Geoff Gaxiola DO Primary Care Provider Bing Em NP Primary Care Provider Reason for Referral * MRI/CAT Scan - Closed Specialty Diagnoses / Procedures Referred By Contelliott t Referred To Contact Radiology Diagnoses Sensorineural hearing loss of both ears Tinnitus, left ear Impacted cerumen, left ear Procedures MRI Brain Katelynn Argueta MD Phone: tel: fax: [email or web address] Referral ID Status Reason Start Date Expiration Date Visits Re quested Visits Authorized [id number] Closed 04/28/2019 04/27/2020 1 1 Encounter Details Date Type Department Care Team (Latest Contact Info) Description 04/28/2019 Ancillary Orders Virtual Department 30 [place] [address] Katelynn Argueta MD 100 [facility] 100 [place] [address] [email or web address] Sensorineural hearing loss of both ears; Tinnitus, left ear; Impacted cerumen, left ear Social History Tobacco Use Types Packs/Day Years [...] Description 08/29/2025 9:00 AM EST Office Visit [facility] [address] [place] [address] 3rd Floor, [address] [place] [address] Francisco Hendricks MD, MS 22 [facility], [address] [address] documented as of this encounter Results * MRI BRAIN WITH AND WITHOUT CONTRAST (05/18/2019 12:17 PM EDT) Anatomical Region Laterality Modality Head Magnetic Resonan ce 05/18/2019 1:56 PM EDT Impressions 05/18/2019 2:45 PM EDT 1. No abnormalities in the cerebellopontine angle cisterns or internal auditory canals. 2. Essentially stable nonspecific white matter changes, most likely secondary to chronic microangiopathic changes. 3. Minimal bilateral mastoid effusions, greater on the right side. 4. Probable artifactual small round hyperintense foci seen on the left nelda and left cerebellar peduncle, only seen on the large iryuw-my-yfwr postcontrast images, without correlation in any other sequence. Consider three months follow-up MRI with intravenous contrast for reevaluation if clinically warranted. POS - [id number] Narrative 05/18/2019 2:45 PM EDT EXAM: MRI BRAIN WITHOUT AND WITH INTRAVENOUS CONTRAST COMPARISON: Head CT on December 09, 2018. Brain MRI on December 08, 2017. HISTORY: Sensorineural hearing loss of both ears, Tinnitus left ear, impacted cerumen left ear TECHNIQUE: Exam performed on a 1.5 Yumiko high-field MRI scanner. Multiple sequences were obtained prior to and following intravenous administration of 18.5 cc of contrast gadolinium Dotarem. FINDINGS: Ventricles, Sulci and extra axial spaces: Ventricles, sulci, and cisterns are age-appropriate, without evidence of hydrocephalus. Brain Parenchyma: No restricted diffusion, hemorrhage, mass effect or shift of midline structures seen. Multiple small T2/FLAIR hyperintense lesions scattered throughout the white matter of bilateral cerebral hemispheres are not significantly progressed from prior MR study in November 2017. The small round hyperintense foci seen on the large field of view axial postcontrast images on the left side of the nelda and left cerebellar peduncle are not associated with signal abnormality in any other sequences or enhancement on the postcontrast smaller eruyl-gr-[id number] axial or coronal images, therefore, thought to be artifactual. IAC: No mass or abnormal enhancement in the cerebellopontine angle cisterns or internal auditory canals. The course of the VII-VIII cranial nerve complex has normal appearance on high-resolution T2-weighted 3-D FIESTA images. Vascular: The major intracranial vessels show normal flow related signal void. Skull Base: Sellar/parasellar structures, pineal gland region and craniovertebral junction are unremarkable. Orbits: The orbits are unremarkable noting prior bilateral lens implants. Paranasal sinuses: No significant inflammatory changes present in the paranasal sinuses. Minimal bilateral mastoid effusion, greater on the right side. Bones and soft tissues: Grossly unremarkable. Procedure Note Lima Aguilar MD - 05/18/2019 EXAM: MRI BRAIN WITHOUT AND WITH INTRAVENOUS CONTRAST COMPARISON: Head CT on December 09, 2018. Brain MRI on December 08, 2017. HISTORY: Sensorineural hearing loss of both ears, Tinnitus left ear,impacted cerumen left ear TECHNIQUE: Exam performed on a 1.5 Yumkio high-field MRI scanner. Multiplesequences were obtained prior to and following intravenous administrationof 18.5 cc of contrast gadolinium Dotarem. FINDINGS: Ventricles, Sulci and extra axial spaces: Ventricles, sulci, andcisterns are age-appropriate, without evidence of hydrocephalus. Brain Parenchyma: No restricted diffusion, hemorrhage, mass effect orshift of midline structures seen. Multiple small T2/FLAIR hyperintenselesions scattered throughout the white matter of bilateral cerebralhemispheres are not significantly progressed from prior MR study in November2017. The small round hyperintense foci seen on the large field of viewaxial postcontrast images on the left side of the nelda and left cerebellarpeduncle are not associated with signal abnormality in any other sequencesor enhancement on the postcontrast smaller owbap-yl-huez axial or coronalimages, therefore, thought to be artifactual. IAC: No mass or abnormal enhancement in the cerebellopontine anglecisterns or internal auditory canals. The course of the VII-VIII cranialnerve complex has normal appearance on high-resolution T2-weighted 3-DFIESTA images. Vascular: The major intracranial vessels show normal flow related signalvoid. Skull Base: Sellar/parasellar structures, pineal gland region andcraniovertebral junction are unremarkable. Orbits: The orbits are unremarkable noting prior bilateral lens implants. Paranasal sinuses: No significant inflammatory changes present in theparanasal sinuses. Minimal bilateral mastoid effusion, greater on theright side. Bones and soft tissues: Grossly unremarkable. IMPRESSION: 1. No abnormalities in the cerebellopontine angle cisterns or internalauditory canals. 2. Essentially stable nonspecific white matter changes, most likelysecondary to chronic microangiopathic changes. 3. Minimal bilateral mastoid effusions, greater on the right side. 4. Probable artifactual small round hyperintense foci seen on the leftpons and left cerebellar peduncle, only seen on the large mfbkm-xu-alltrlwvwoepojnv images, without correlation in any other sequence. Considerthree months follow-up MRI with intravenous contrast for reevaluation ifclinically warranted. POS - [id number] us Katelynn Argueta MD IMG MR HEAD/NECK Final Res ult documented in this encounter Visit Diagnoses Diagnosis Sensorineural hearing loss of both ears Tinnitus, left ear Impacted cerumen, left ear Sensorineural hearing loss of both ears Tinnitus, left ear Impacted cerumen, left ear documented in this encounter Additional Health Concerns Infection Onset Date Last Indicated Resolved Time CoV-Risk 07/26/2022 07/26/2022 08/06/2022 2:40 PM EST CoV-Risk 03/27/2024 03/27/2024 04/07/2024 1:21 AM EDT documented as of this encounter Care Teams Police Surgeon Relationship Specialty Start Date End Date Arlene Dwyer PA [address] [place] [address] 234 [place] [address] PCP - General Unknown Provider Specialty 04/07/19 02/12/22 Pcp, Unknown PCP - General 02/13/22 07/25/22 Liliana Gonzáles NP [address] [place] [address] [email or web address] PCP - General Family Medicine 07/26/22 10/21/23 Geoff Gaxiola DO [address] [place] [address] 220 [place] [address] [email or web address] PCP - General Hospitalist 10/22/23 05/01/25 Bing Em NP [address] [place] [address] 2nd [place] [address] [email or web address] PCP - General Nurse Practitioner 05/02/25 Bianca Rogers PA [facility] [place] [address] Historical LMR Provider 07/09/17 2 Elroy Pabon DO 4 [facility] Medicine, [place] [address] Historical LMR Provider 07/09/17 Elroy England PA-C [address] [place] [address] Historical LMR Provider 07/09/17 2 Annita Amaral PA-C [address] [place] [address] Orth[facility] Sports Medicine, [place] [address] jose Historical LMR Provider 07/09/17 09/29/21 William Hyman MD [address] [place] [address] Historical LMR Provider 07/09/17 2 documented as of this encounter Additional Source Comments The information contained in this document represents components of the legal health record. It is not the complete legal health record.[facility]
--- OUTSIDE RECORDS SUMMARY | 2025-08-02 08:55 | XMS_ITS | Encounter Summary ---
Author Organization [facility] Address [address] [place] [address] Phone Care Team Providers Care Television Production Technician Name Role Phone Bianca Rogers Unavailable [phone] Elroy Pabon DO Unavailable Elroy England PA-C Unavailable Annita Amaral PA-C Unavailable William Hyman MD Unavailable Arlene Dwyer Primary Care Provider Pcp, Unknown Primary Care Provider UnavailLiliana Wills NP Primary Care Pro vider Geoff Gaxiola DO Primary Care Provider Bing Em NP Primary Care Provider Encounter Details Date Type Department Care Team (Late st Contact Info) Description 09/29/2021 Procedure Pass [facility], Ct Scan - [address] [address] Social History Tobacco Use Types Packs/Day Years [...] Start Date Job End Date Retired from [employer] Not on file Not on file N ot on file documented as of this encounter Functional Status * Calculated C-SSRS Risk Score (Lifetime/Recent) Answer Date of Assessment Author No Risk Indicated 09/29/2021 2:09 PM Geovanna Thomson RN * [place] Suicide Severity Rating Scale (Screener/Recent Self-Report) Question [...] Description 08/29/2025 9:00 AM EST Office Visit [facility] [address] [place] [address] 3rd Floor, [address] [place] [address] Francisco Hendricks MD, [place] [address] [place] [address], [address] [address] [email or web address] documented as of this encounter Visit Diagnoses Not on filedocumented in this encounter Additional Health Concerns Infection Onset Date Last Indicated Resolved Time CoV-Risk 07/26/2022 07/26/2022 08/06/2022 2:40 PM EST CoV-Risk 03/27/2024 03/27/2024 04/07/2024 1:21 AM EDT documented as of this encounter Care Teams Television Production Technician Relationship Specialty Start Date End Date Arlene Dwyer PA [address] [place], [place] [address], [place] [address] PCP - General Unknown Provider Specialty 04/07/19 02/12/22 Pcp, Unknown PCP - General 02/13/22 07/25/22 Liliana Gonzáles, ADILSON [address] [place] [address] [email or web address] PCP - General Family Medicine 07/26/22 10/21/23 Geoff Gaxiola DO [address] [place] [address] [address] [place] [address] [email or web address] PCP - General Hospitalist 10/22/23 05/01/25 Bing Em, ADILSON [address] [place] [address] 2nd [place] [address] [email or web address] PCP - General Nurse Practitioner 05/02/25 Bianca Rogers [place] [address] Historical LMR Provider 07/09/17 2 Elroy Pabon DO [address] [place] [address] Orthopedics & Sports Medicine, [place] [address] [email or web address] Historical LMR Provider 07/09/17 Elroy England PA-C [address] [place] [address] 1 [place] [address] Historical LMR Provider 07/09/17 2 Annita Amaral PA-C 4 [facility], [facility] [place] [address] [email or web address] Historical LMR Provider 07/09/17 09/29/21 William Hyman MD [address] [place] [address] Historical LMR Provider 07/09/17 2 documented as of this encounter Additional Source Comments The information contained in this document represents components of the legal health record. It is not the complete legal health record.[facility]
--- OUTSIDE RECORDS SUMMARY | 2025-08-02 08:55 | XMS_ITS | Encounter Summary ---
Author Organization [facility] Address [address] [place] [address] Phone Care Team Providers Care Casino Investigator Name Role Phone Elroy Pabon DO Unavailable [phone] Pcp, Unknown Primary Care Provider Liliana Hanna NP Primary Care Pro vider Geoff Gaxiola DO Primary Care Provider [phone] Bing Em NP Primary Care Provider Encounter Details Date Type Department Care Team (Latest Contact Info) Description 06/24/2022 Transcribe Orders [facility] Maribel 10 [facility] 2nd [place] [address] Alyssa Castano NP [address] [place] [address] Hx of iron deficiency anemia (Primary Dx) Social History Tobacco Use Types [...] Start Date Job End Date Retired from [employer] Not on file Not on file N ot on file documented as of this encounter Plan of Treatment Upcoming Encounters Date Type Department Care Team (Late st Contact Info) Description 08/29/2025 9:00 AM EST Office Visit [facility] 3rd Floor, [address] [place] [address] Francisco Hendricks MD, MS 22 [facility], [address] [place] [address] [email or web address] documented as of this encounter Results * Fecal immunochemical test x1 (FIT) (06/28/2022 5:20 PM EDT) [facility] Immuno Fecal Occult Negative Negative [facility] Stool (Stool) 06/28/2022 5:2 0 PM EDT 06/28/2022 5:22 PM EDT us Alyssa Castano FUR IRONER LAB BODY FLUIDS AND STOOL ORDERABLES Final Result Performing Organization Address City/[facility]/ZIP Co de Phone Number [address] [address] * Vitamin B12 (06/24/2022 10:25 AM EDT) [facility] VITAMIN B12 401 232 - 1,245 pg/mL [facility] Blood 06/24/2022 10:2 5 AM EDT 06/24/2022 10:31 AM EDT Alyssa Castano FUR IRONER LAB BLOOD BKR ORDERABLES Final Result Performing Organization Address [facility]/ZIP Co de Phone Number [address] [address] * (ABNORMAL) Ferritin (06/24/2022 10:25 AM EDT) FERRITIN 24(L) 30 - 400 ug/L [facility] Blood 06/24/2022 10:2 5 AM EDT 06/24/2022 10:31 AM EDT Alyssa Castano NP LAB BLOOD BKR ORDERABLES Final Result Performing Organization Address City/[facility]/ZIP Co de Phone Number [address] [address] * (ABNORMAL) Iron and iron binding capacity (06/24/2022 10:25 AM EDT) IRON 33(L) 45 - 160 ug/dL [facility] IRON BINDING CAPACITY 387 228 - 428 ug/dL [facility] TRANSFERRIN SATURAT. 9(L) 20 - 55 % [facility] Blood 06/24/2022 10:2 5 AM EDT 06/24/2022 10:31 AM EDT Alyssa Castano NP LAB BLOOD BKR ORDERABLES Final Result Performing Organization Address City/[facility] Co de Phone Number [address] [address] * (ABNORMAL) CBC (06/24/2022 10:25 AM EDT) WBC 10.54 4.00 - 11.00 K/uL [facility] RBC 5.19 3.90 - 5.69 M/uL [facility] HGB 13.0 12.4 - 17.3 g/dL [facility] HCT 42.4 37.0 - 51.0 % [facility] PLT 243 140 - 430 K/uL [facility] MCV 81.7 78.0 - 97.0 fL [facility] MCH 25.0 25.0 - 33.0 pg [facility] MCHC 30.7(L) 32.0 - 36.0 g/dL [facility] RDW 15.2(H) 11.0 - 15.0 % [facility] MPV 11.0 8.4 - 12.8 fl [facility] Blood 06/24/2022 10:2 5 AM EDT 06/24/2022 10:31 AM EDT Alyssa Castano FUR IRONER LAB BLOOD BKR ORDERABLES Final Result [facility] [address] [place] [address] documented in this encounter Visit Diagnoses Diagnosis Hx of iron deficiency anemia- Primary documented in this encounter Additional Health Concerns Infection Onset Date Last Indicated Resolved Time CoV-Risk 07/26/2022 07/26/2022 08/06/2022 2:40 PM EST CoV-Risk 03/27/2024 03/27/2024 04/07/2024 1:21 AM EDT documented as of this encounter Care Teams Casino Investigator Relationship Specialty Start Date End Date Pcp, Unknown PCP - General 02/13/22 07/25/22 Liliana Gonzáles NP [address] [place] [address] [email or web address] PCP - General Family Medicine 07/26/22 10/21/23 Geoff Gaxiola DO [address] [place] [address] 220 [place] [address] [email or web address] PCP - General Hospitalist 10/22/23 05/01/25 Bing Em NP [address] [facility] 2nd [place] [address] [email or web address] PCP - General Nurse Practitioner 05/02/25 Elroy Pabon DO [address] [place] [address] Orthopedics & Sports Medicine, [facility] [place] [address] Historical LMR Provider 07/09/17 documented as of this encounter Additional Source Comments The information contained in this document represents components of the legal health record. It is not the complete legal health record.[facility]
--- OUTSIDE RECORDS SUMMARY | 2025-08-02 08:55 | XMS_ITS | Encounter Summary ---
Author Organization [facility] Address [address] [place] [address] Phone Care Team Providers Care Brim Setter Name Role Phone Elroy EnglandC Primary Care Provider [phone] Bianca Rogers Unavailable [phone] Elroy Pabon DO Unavailable [phone] Elroy England-C Unavailable [phone] Annita Amaral-C Unavailable William Hyman MD Unavailable [phone] Barbie Schmidt NP Primary Care Provider Unknown, Unknown Primary Care Provider Arlene Horton Primary Care Provider Pcp, Unknown Primary Care Provider Liliana Hanna NP Primary Care Pro vider Geoff Gaxiola DO Primary Care Provider [phone] Bing Em NP Primary Care Provider Reason for Referral * MRI/CAT Scan - Closed Specialty Diagnoses / Procedures Referred By Barry t Referred To Contact Procedures MRI Spine (Bone) Outside (No Interpretation) System, Provider Not In, PhD [address] [address] Referral ID Status Reason Start Date Expiration Date Visits Re quested Visits Authorized [id number] Closed 06/03/2018 06/03/2019 1 1 Encounter Details Date Type Department Care Team (Late Contact Info) Description 06/03/2018 Ancillary Orders [facility],Outside Imaging [address] [place] [address] System, Provider Not In, PhD [address] [address] Social History Tobacco Use Types Packs/Day Years [...] Description 08/29/2025 9:00 AM EST Office Visit [facility] [address] [place] [address] 3rd Floor, [address] [place] [address] Francisco Hendricks MD, MS 22 [facility], [address] [address] [email or web address] documented as of this encounter Results * MRI Spine (Bone) Outside (No Interpretation) (04/25/2017 12:00 AM EDT) Narrative SYSTEMGENERATED, DOCUMENTATION - 06/03/2018 11:35 AM EDT This study is for PACS storage only and not for interpretation. Provider Not In System PhD IMG OUTSIDE IMAGING W /OUT INTERPRETATION Final Result documented in this encounter Visit Diagnoses Not on filedocumented in this encounter Additional Health Concerns Infection Onset Date Last Indicated Resolved Time CoV-Risk 07/26/2022 07/26/2022 08/06/2022 2:40 PM EST CoV-Risk 03/27/2024 03/27/2024 04/07/2024 1:21 AM EDT documented as of this encounter Care Teams Brim Setter Relationship Specialty Start Date End Date Elroy England PA-C [address] [place] [address] 1 [place] [address] PCP - General 09/04/16 06/08/18 Barbie Schmidt, ADILSON [address] [place] [address] PCP - General Pediatrics 06/09/18 12/29/18 Unknown, Unknown, [address] [place] [address] PCP - General 03/02/19 04/06/19 Arlene Dwyer PA [address] [place] [address] PCP - General Unknown Provider Specialty 04/07/19 02/12/22 Pcp, Unknown PCP - General 02/13/22 07/25/22 Liliana Gonzáles, ADILSON [address] [place] [address] [place] [address] [email or web address] PCP - General Family Medicine 07/26/22 10/21/23 Geoff Gaxiola DO [address] [place] [address] 220 [place] [address] [email or web address] PCP - General Hospitalist 10/22/23 05/01/25 Bing Em, ADILSON [address] [facility] [address] 2nd [place] [address] [email or web address] PCP - General Nurse Practitioner 05/02/25 Bianca Rogers PA [facility] [place] [address] Historical LMR Provider 07/09/17 2 Elroy Pabon DO 4 [facility] [place], [place] [address] Historical LMR Provider 07/09/17 Elroy England PA-C [address] [place] [address] Historical LMR Provider 07/09/17 2 Annita Amaral PA-C [address] [place] [address] Orthopedics & Sports Medicine, [place] [address] jose Historical LMR Provider 07/09/17 09/29/21 William Hyman MD [address] [place] [address] Historical LMR Provider 07/09/17 2 documented as of this encounter Additional Source Comments The information contained in this document represents components of the legal health record. It is not the complete legal health record.[facility]
--- OUTSIDE RECORDS SUMMARY | 2025-08-02 08:55 | XMS_ITS | Encounter Summary ---
Author Organization [facility] Address [address] [place] [address] Phone Care Team Providers Care Naval Aircrew[employer] Helicopter Name Role Phone Elroy EnglandC Primary Care Provider Bianca Rogers Unavailable [phone] Elroy Pabon DO Unavailable [phone] Elroy England-C Unavailable Annita Amaral-C Unavailable William Hyman MD Unavailable [phone] Barbie Schmidt NP Primary Care Provider [phone] Unknown, Unknown Primary Care Provider Arlene Horton Primary Care Provider Pcp, Unknown Primary Care Provider Liliana Hanna NP Primary Care Pro vider Geoff Gaxiola DO Primary Care Provider [phone] Bing Em NP Primary Care Provider Encounter Details Date Type Department Care Team (Late st Contact Info) Description 06/01/2018 Procedure Pass [facility], MRI - [address] [place] [address] Social History Tobacco Use Types Packs/Day Years [...] PM EST documented as of this encounter Last Filed Vital Signs Vital Sign Reading Time Taken Comments Blood Pressure - - Pulse - - Temperature - - Respiratory Rate - - Oxygen Saturation - - Inhaled Oxygen Concentration - - Weight 95.7 kg (211 lb) 06/02/2018 12:38 PM EDT Height 162.6 cm (5' 4 ) 06/02/2018 12:38 PM EDT Body Mass Index 36.22 06/02/2018 12:38 PM EDT documented in this encounter Plan of Treatment Upcoming Encounters Date Type Department Care Team (Late st Contact Info) Description 08/29/2025 9:00 AM EST Office Visit [facility] [address] [place] [address] [facility], [address] [place] [address] Francisco Hendricks MD, MS 22 [facility], [address] [place] [address] [email or web address] documented as of this encounter Visit Diagnoses Not on filedocumented in this encounter Additional Health Concerns Infection Onset Date Last Indicated Resolved Time CoV-Risk 07/26/2022 07/26/2022 08/06/2022 2:40 PM EST CoV-Risk 03/27/2024 03/27/2024 04/07/2024 1:21 AM EDT documented as of this encounter Care Teams Naval Aircre[employer] Helic[employer] Relationship Specialty Start Date End Date Elroy England PA-C [address] [place] [address] [address] [place] [address] PCP - General 09/04/16 06/08/18 Barbie Schmidt ADILSON [address] [place] [address] PCP - General Pediatrics 06/09/18 12/29/18 Unknown, Unknown, [address] [place] [address] PCP - General 03/02/19 04/06/19 Arlene Dwyer PA [address] [place] [address] PCP - General Unknown Provider Specialty 04/07/19 02/12/22 Pcp, Unknown PCP - General 02/13/22 07/25/22 Liliana Gonzáles NP [address] [place] [address] [email or web address] PCP - General Family Medicine 07/26/22 10/21/23 Geoff Gaxiola DO [address] [place] [address] 220 [place] [address] [email or web address] PCP - General Hospitalist 10/22/23 05/01/25 Bing Em NP [address] [place] [address] 2nd [place] [address] [email or web address] PCP - General Nurse Practitioner 05/02/25 Bianca Rogers [place] [address] [place] [address] Historical LMR Provider 07/09/17 2 Elroy Pabon DO [address] [place] [address] Orthopedics & Sports Medicine, [place] [address] [email or web address] Historical LMR Provider 07/09/17 Elroy England PA-C [address] [place] [address] [address] [place] [address] Historical LMR Provider 07/09/17 2 Annita Amaral PA-C [address] [place] [address] Orthopedics [facility] Sports Medicine, [place] [address] [email or web address] Historical LMR Provider 07/09/17 09/29/21 William Hyman MD [address] [place] [address] Historical LMR Provider 07/09/17 2 documented as of this encounter Additional Source Comments The information contained in this document represents components of the legal health record. It is not the complete legal health record.[facility]
--- OUTSIDE RECORDS SUMMARY | 2025-08-02 08:55 | XMS_ITS ---
Author Organization [facility] Address [address] [place] [address] Phone Care Team Providers Care Flavor Tank Tender Name Role Phone Elroy Pabon DO Unavailable [phone] Bing Em NP Primary Care Provider Active Problems Problem Noted Date Diagnosed Date [...] about arranging for a consultation with Dr. Alvarado Siddiqi here at the [facility]. I think this would be optimal, but [...] persistent asthma Obstructive sleep apnea on CPAP Current Treatment and Therapy Plans No current plan information found. Past Treatment and Therapy Plans Resolved Problems Problem Noted Date Diagnosed Date [...]
--- OUTSIDE RECORDS SUMMARY | 2025-08-02 08:56 | XMS_ITS | Encounter Summary ---
Author Organization [facility] Address [address] [place] [address] Phone Care Team Providers Care Charhouse Worker Name Role Phone Elroy EnglandC Primary Care Provider Bianca Rogers Unavailable [phone] Elroy Pabon DO Unavailable [phone] Elroy England-C Unavailable Annita Amaral-C Unavailable William Hyman MD Unavailable Barbie Schmidt NP Primary Care Provider Unknown, Unknown Primary Care Provider Arlene Horton Primary Care Provider Pcp, Unknown Primary Care Provider Liliana Hanna NP Primary Care Pro vider Geoff Gaxiola DO Primary Care Provider [phone] Bing Em NP Primary Care Provider Encounter Details Date Type Department Care Team (Late st Contact Info) Description 06/03/2018 Procedure Pass [facility],Outside Imaging [address] [place] [address] Social History Tobacco Use Types Packs/Day Years Used Date Smoking Tobacco: Former Alcohol Use Standard Drinks/Week Comments [...] Description 08/29/2025 9:00 AM EST Office Visit [facility] 22 [facility] 3rd Floor, [address] [place] [address] Francisco Hendricks MD, MS 22 [facility] [place], [address] [address] [email or web address] documented as of this encounter Visit Diagnoses Not on filedocumented in this encounter Additional Health Concerns Infection Onset Date Last Indicated Resolved Time CoV-Risk 07/26/2022 07/26/2022 08/06/2022 2:40 PM EST CoV-Risk 03/27/2024 03/27/2024 04/07/2024 1:21 AM EDT documented as of this encounter Care Teams Charhouse Worker Relationship Specialty Start Date End Date Elroy England PA-C [address] [place] [address] [address] [place] [address] PCP - General 09/04/16 06/08/18 Barbie Schmidt NP [address] [place] [address] PCP - General Pediatrics 06/09/18 12/29/18 Unknown, Unknown, [address] [place] [address] PCP - General 03/02/19 04/06/19 Arlene Dwyer PA [address] [place] [address] [address] [place] [address] PCP - General Unknown Provider Specialty 04/07/19 02/12/22 Pcp, Unknown PCP - General 02/13/22 07/25/22 Liliana Gonzáles, ADILSON [address] [place] [address] [email or web address] PCP - General Family Medicine 07/26/22 10/21/23 Geoff Gaxiola DO [address] [place] [address] [address] [place] [address] [email or web address] PCP - General Hospitalist 10/22/23 05/01/25 Bing Em, ADILSON [address] [place] [address] 2nd [place] [address] [email or web address] PCP - General Nurse Practitioner 05/02/25 Bianca Rogers [place] [address] Historical LMR Provider 07/09/17 2 Elroy Pabon DO [address] [place] [address] Orthopedics & Sports Medicine, [place] [address] [email or web address] Historical LMR Provider 07/09/17 Elroy England PA-C [address] [place] [address] 1 [place] [address] Historical LMR Provider 07/09/17 2 Annita Amaral PA-C 4 [facility] Orth[facility]ics & Sports Medicine, [facility] [place] [address] [email or web address] Historical LMR Provider 07/09/17 09/29/21 William Hyman MD [address] [place] [address] Historical LMR Provider 07/09/17 2 documented as of this encounter Additional Source Comments The information contained in this document represents components of the legal health record. It is not the complete legal health record.[facility]
--- OUTSIDE RECORDS SUMMARY | 2025-08-02 08:56 | XMS_ITS | Encounter Summary ---
Author Organization [facility] Address [address] [place] [address] Phone Care Team Providers Care Radiation / Chemistry Technician Name Role Phone Bianca Rogers Unavailable [phone] Elroy Pabon DO Unavailable [phone] Elroy England PA-C Unavailable Annita Amaral PA-C Unavailable William Hyman MD Unavailable Arlene Dwyer Primary Care Provider Pcp, Unknown Primary Care Provider UnavailLiliana Wills NP Primary Care Pro vider Geoff Gaxiola DO Primary Care Provider Bing Em NP Primary Care Provider Encounter Details Date Type Department Care Team (Late st Contact Info) Description 12/04/2020 Procedure Pass [facility] Endoscopy Admitting Dept Virtual Department 30 [place] [address] Social History Tobacco Use Types Packs/Day Years [...] Start Date Job End Date Retired from [employer] Not on file Not on file N ot on file documented as of this encounter Plan of Treatment Upcoming Encounters Date Type Department Care Team (Late st Contact Info) Description 08/29/2025 9:00 AM EST Office Visit [facility] [address] [place] [address] 3rd Floor, [address] [place] [address] Francisco Hendricks MD, MS 22 [facility], [address] [place] [address] [email or web address] documented as of this encounter Visit Diagnoses Not on filedocumented in this encounter Additional Health Concerns Infection Onset Date Last Indicated Resolved Time CoV-Risk 07/26/2022 07/26/2022 08/06/2022 2:40 PM EST CoV-Risk 03/27/2024 03/27/2024 04/07/2024 1:21 AM EDT documented as of this encounter Care Teams Radiation / Chemistry Technician Relationship Specialty Start Date End Date Arlene Dwyer PA [address] [place] [address] 234 [place] [address] PCP - General Unknown Provider Specialty 04/07/19 02/12/22 Pcp, Unknown PCP - General 02/13/22 07/25/22 Liliana Gonzáles NP [address] [place] [address] [place] [address] [email or web address] PCP - General Family Medicine 07/26/22 10/21/23 Geoff Gaxiola WDO [address] [place] [address] 220 [place] [address] [email or web address] PCP - General Hospitalist 10/22/23 05/01/25 Bing Em NP [address] [facility] [address] 2nd [place] [address] [email or web address] PCP - General Nurse Practitioner 05/02/25 Bianca Rogers PA [facility] [place] [address] Historical LMR Provider 07/09/17 2 Elroy Pabon DO 4 [facility] Orthopedics & Sports Medicine, [facility] [place] [address] Historical LMR Provider 07/09/17 Elroy England PA-C [address] [place] [address] 1 [place] [address] Historical LMR Provider 07/09/17 2 Annita Amaral PA-C [address] [place] [address] Orthopedics & Sports Medicine, [facility] [place] [address] jose Historical LMR Provider 07/09/17 09/29/21 William Hyman MD [address] [place] [address] Historical LMR Provider 07/09/17 2 documented as of this encounter Additional Source Comments The information contained in this document represents components of the legal health record. It is not the complete legal health record.[facility]
--- OUTSIDE RECORDS SUMMARY | 2025-08-02 08:56 | XMS_ITS | Encounter Summary ---
Author Organization [facility] Address [email or web address] [place] [address] Phone Care Team Providers Care Lmft Name Role Phone Bianca Rogers Unavailable Elroy Pabon DO Unavailable Elroy England PA-C Unavailable Annita Amaral PA-C Unavailable William Hyman MD Unavailable Arlene Dwyer Primary Care Provider Pcp, Unknown Primary Care Provider UnavailLiliana Wills NP Primary Care Pro vider Geoff Gaxiola DO Primary Care Provider Bing Em NP Primary Care Provider Encounter Details Date Type Department Care Team (Late st Contact Info) Description 11/16/2020 Procedure Pass [facility] Endoscopy Admitting Dept Virtual Department 30 [place] [address] Social History Tobacco Use Types Packs/Day Years [...] Start Date Job End Date Retired from [employer] Not on file Not on file N ot on file documented as of this encounter Plan of Treatment Upcoming Encounters Date Type Department Care Team (Late st Contact Info) Description 08/29/2025 9:00 AM EST Office Visit [facility] [address] [place] [address] 3rd Floor, [address] [place] [address] Francisco [place]ricks MD, MS 22 [facility], [address] [place] [address] [email or web address] documented as of this encounter Visit Diagnoses Not on filedocumented in this encounter Additional Health Concerns Infection Onset Date Last Indicated Resolved Time CoV-Risk 07/26/2022 07/26/2022 08/06/2022 2:40 PM EST CoV-Risk 03/27/2024 03/27/2024 04/07/2024 1:21 AM EDT documented as of this encounter Care Teams Lmft Relationship Specialty Start Date End Date Arlene Dwyer PA [address] [place] [address] 234 [place] [address] PCP - General Unknown Provider Specialty 04/07/19 02/12/22 Pcp, Unknown PCP - General 02/13/22 07/25/22 Liliana Gonzáles NP [address] [place] [address] [place] [address] [email or web address] PCP - General Family Medicine 07/26/22 10/21/23 Geoff Gaxiola WDO [address] [place] [address] 220 [place] [address] [email or web address] PCP - General Hospitalist 10/22/23 05/01/25 Bing Em NP [address] [facility] [address] 2nd [place] [address] [email or web address] PCP - General Nurse Practitioner 05/02/25 Bianca Rogers PA [facility] [address] Historical LMR Provider 07/09/17 2 Elroy Pabon DO 4 [facility] Orthopedics & Sports Medicine, [place] [address] Historical LMR Provider 07/09/17 Elroy England PA-C [address] [place] [address] 1 [place] [address] Historical LMR Provider 07/09/17 2 Annita Amaral PA-C [address] [place] [address] Orthopedics & Sports Medicine, [place] [address] jose Historical LMR Provider 07/09/17 09/29/21 William Hyman MD [address] [place] [address] Historical LMR Provider 07/09/17 2 documented as of this encounter Additional Source Comments The information contained in this document represents components of the legal health record. It is not the complete legal health record.[facility]
--- OUTSIDE RECORDS SUMMARY | 2025-08-02 08:56 | XMS_ITS | Encounter Summary ---
Author Organization [facility] Address [address] [place] [address] Phone Care Team Providers Care Clinical Engineering Manager Name Role Phone Elroy EnglandC Primary Care Provider Bianca Rogers Unavailable [phone] Elroy Pabon DO Unavailable Elroy England-C Unavailable Annita Amaral-C Unavailable William Hyman MD Unavailable [phone] Barbie Schmidt NP Primary Care Provider Unknown, Unknown Primary Care Provider Arlene Horton Primary Care Provider [phone] Pcp, Unknown Primary Care Provider Liliana Hanna NP Primary Care Pro vider Geoff Gaxiola DO Primary Care Provider [phone] Bing Em NP Primary Care Provider Encounter Details Date Type Department Care Team (Late st Contact Info) Description 10/21/2017 Procedure Pass [facility], Ct Scan - [facility] [address] [place] [address] Social History Tobacco Use Types Packs/Day Years [...] Description 08/29/2025 9:00 AM EST Office Visit [facility] [address] [place] [address] 3rd Floor, [address] [place] [address] Francisco Hendricks MD, MS 22 [facility], [address] [address] [email or web address] documented as of this encounter Visit Diagnoses Not on filedocumented in this encounter Additional Health Concerns Infection Onset Date Last Indicated Resolved Time CoV-Risk 07/26/2022 07/26/2022 08/06/2022 2:40 PM EST CoV-Risk 03/27/2024 03/27/2024 04/07/2024 1:21 AM EDT documented as of this encounter Care Teams Clinical Engineering Manager Relationship Specialty Start Date End Date Elroy England PA-C [address] [place] [address] [address] [place] [address] PCP - General 09/04/16 06/08/18 Barbie Schmidt NP [address] [place] [address] PCP - General Pediatrics 06/09/18 12/29/18 Unknown, Unknown, [address] [place] [address] PCP - General 03/02/19 04/06/19 Arlene Dwyer PA 299 [facility] 234 [place] [address] PCP - General Unknown Provider Specialty 04/07/19 02/12/22 Pcp, Unknown PCP - General 02/13/22 07/25/22 Liliana Gonzáles, ADILSON [address] [place] [address] [email or web address] PCP - General Family Medicine 07/26/22 10/21/23 Geoff Gaxiola DO [address] [place] [address] 220 [place] [address] [email or web address] PCP - General Hospitalist 10/22/23 05/01/25 Bing Em, ADILSON [address] [place] [address] 2nd [place] [address] [email or web address] PCP - General Nurse Practitioner 05/02/25 Bianca Rogers [place] [address] Historical LMR Provider 07/09/17 2 Elroy Pabon DO [address] [place] [address] Orthopedics & Sports Medicine, [place] [address] [email or web address] Historical LMR Provider 07/09/17 Elroy England PA-C [address] [place] [address] [address] [place] [address] Historical LMR Provider 07/09/17 2 Annita Amaral PA-C 4 [facility] Orthopedics & Sports Medicine, [place] [address] [email or web address] Historical LMR Provider 07/09/17 09/29/21 William Hyman MD [address] [place] [address] Historical LMR Provider 07/09/17 2 documented as of this encounter Additional Source Comments The information contained in this document represents components of the legal health record. It is not the complete legal health record.[facility]
--- OUTSIDE RECORDS SUMMARY | 2025-08-02 08:56 | XMS_ITS | Encounter Summary ---
Author Organization [facility] Address [address] [place] [address] Phone Care Team Providers Care Senior Research Executive Name Role Phone Bianca Rogers Unavailable [phone] Elroy Pabon DO Unavailable Elroy England PA-C Unavailable Annita Amaral PA-C Unavailable William Hyman MD Unavailable Arlene Dwyer Primary Care Provider Pcp, Unknown Primary Care Provider UnavailLiliana Wills NP Primary Care Pro vider Geoff Gaxiola DO Primary Care Provider Bing Em NP Primary Care Provider Encounter Details Date Type Department Care Team (Latest Contact Info) Description 12/20/2020 Transcribe Orders [address] [place] [address] Eva Hopson, ANALYTICS CONSULTANT 10 [place] [address] [email or web address] Anemia, unspecified type (Primary Dx) Social History Tobacco [...] Start Date Job End Date Retired from [employer] Not on file Not on file N ot on file documented as of this encounter Plan of Treatment Upcoming Encounters Date Type Department Care Team (Late st Contact Info) Description 08/29/2025 9:00 AM EST Office Visit [facility] 22 [facility] 3rd Floor, [address] [place] [address] Francisco Hendricks MD, MS 22 [facility], [address] [place] [address] [email or web address] documented as of this encounter Results * Vitamin B12 (12/20/2020 3:13 PM EDT) VITAMIN B12 410 232 - 1,245 pg/mL [facility] Blood 12/20/2020 3:13 PM EDT 12/20/2020 3:35 PM EDT us Eva Hopson [facility] B[facility] BKR ORDERABLES F inal Result [facility] [address] [place] [address] * Folate (12/20/2020 3:13 PM EDT) FOLIC ACID 17.9 4.2 - 19.9 ng/mL [facility] Blood 12/20/2020 3:13 PM EDT 12/20/2020 3:35 PM EDT Eva Hopson [facility] BLOOD BKR ORDERABLES F inal Result Performing Organization Address City/[facility]/ZIP Co de Phone Number [address] [address] * (ABNORMAL) Ferritin (12/20/2020 3:13 PM EDT) FERRITIN 21(L) 30 - 400 ug/L [facility] Blood 12/20/2020 3:13 PM EDT 12/20/2020 3:35 PM EDT Eva Hopson [facility] BLOOD BKR ORDERABLES F inal Result Performing Organization Address [facility] Co de Phone Number [address] [address] * (ABNORMAL) Iron and iron binding capacity (12/20/2020 3:13 PM EDT) IRON 177(H) 45 - 160 ug/dL [facility] IRON BINDING CAPACITY 389 228 - 428 ug/dL [facility] TRANSFERRIN SATURAT. 46 20 - 55 % [facility] Blood 12/20/2020 3:13 PM EDT 12/20/2020 3:35 PM EDT Eva Hospon [facility] BLOOD BKR ORDERABLES F inal Result Performing Organization Address City/[facility]/ZIP Co de Phone Number [address] [address] * Comprehensive metabolic panel (12/20/2020 3:13 PM EDT) SODIUM 142 133 - 146 mmol/L [facility] POTASSIUM 3.9 3.3 - 5.1 mmol/L [facility] CHLORIDE 104 96 - 108 mmol/L [facility] CO2 28 21 - 35 mmol/L [facility] BUN 16 6 - 19 mg/dL [facility] CREATININE 0.90 0.5 - 1.5 mg/dL [facility] GLUCOSE 96 70 - 99 mg/dL [facility] ALBUMIN 4.0 3.9 - 4.8 g/dL [facility] TOTAL PROTEIN 7.3 6.5 - 8.0 g/dL [facility] CALCIUM 9.2 8.4 - 10.3 mg/dL [facility] ALKALINE PHOSPHATASE 96 39 - 117 U/L [facility] TOTAL BILIRUBIN 0.5 0.0 - 1.2 mg/dL [facility] AST 32 0 - 37 U/L [facility] ALT 20 0 - 40 U/L [facility] GLOBULIN 3.3 1 - 4.8 g/dL [facility] EGFR 89 >59 mL/min/1.7 3m2 [facility] Comment:Estimated glomerular filtration rate calculated using the CKD-EPI equation. ANION GAP 14 10 - 20 mmol/L [facility] Blood 12/20/2020 3:13 PM EDT 12/20/2020 3:35 PM EDT us Eva Hopson [facility] BLOOD BKR ORDERABLES F inal Result [facility] [address] [place], [place] [id number] * (ABNORMAL) CBC and differential (12/20/2020 3:13 PM EDT) WBC 8.94 4.00 - 11.00 K/uL [facility] RBC 4.96 3.90 - 5.69 M/uL [facility] HGB 9.8(L) 12.4 - 17.3 g/dL [facility] HCT 35.1(L) 37.0 - 51.0 % [facility] PLT 273 140 - 430 K/uL [facility] MCV 70.8(L) 78.0 - 97.0 fL [facility] MCH 19.8(L) 25.0 - 33.0 pg [facility] MCHC 27.9(L) 32.0 - 36.0 g/dL [facility] RDW 26.0(H) 11.0 - 15.0 % [facility] MPV Not measured 8.4 - 12.8 fl [facility] NRBC 0.00 0 /100 WBCs [facility] ABSOLUTE NRBC 0.00 0 K/uL [facility] DIFF METHOD Auto [facility] NEUTS 71.0 43.0 - 75.0 % [facility] LYMPHS 16.9(L) 18.2 - 47.4 % [facility] MONOS 9.4 4.00 - 11.00 % [facility] EOS 1.9 0.0 - 8.0 % [facility] BASOS 0.6 0.0 - 2.0 % [facility] Granulocytes, immature (%) 0.2 0.0 - 0.9 % [facility] ABSOLUTE NEUTS 6.35 1.80 - 7.70 K/uL [facility] ABSOLUTE LYMPHS 1.51 1.00 - 3.10 K/uL [facility] ABSOLUTE MONOS 0.84(H) 0.20 - 0.80 K/uL [facility] ABSOLUTE EOS 0.17 0.00 - 0.80 K/uL [facility] ABSOLUTE BASOS 0.05 0.00 - 0.09 K/uL [facility] Granulocytes, immature 0.02 0.00 - 0.05 K/uL [facility] Blood 12/20/2020 3:13 PM EDT 12/20/2020 3:35 PM EDT us Eva Hopson ANALYTICS CONSULTANT LAB BLOOD BKR ORDERABLES F inal Result Performing Organization Address City/State/[facility] Co de Phone Number [address] [address] documented in this encounter Visit Diagnoses Diagnosis Anemia, unspecified type- Primary documented in this encounter Additional Health Concerns Infection Onset Date Last Indicated Resolved Time CoV-Risk 07/26/2022 07/26/2022 08/06/2022 2:40 PM EST CoV-Risk 03/27/2024 03/27/2024 04/07/2024 1:21 AM EDT documented as of this encounter Care Teams Senior Research Executive Relationship Specialty Start Date End Date Arlene Dwyer PA [address] [place] [address] PCP - General Unknown Provider Specialty 04/07/19 02/12/22 Pcp, Unknown PCP - General 02/13/22 07/25/22 Liliana Gonzáles NP [address] [place] [address] [email or web address] PCP - General Family Medicine 07/26/22 10/21/23 Geoff Gaxiola DO [address] [place] [address] [email or web address] PCP - General Hospitalist 10/22/23 05/01/25 Bing Em, ADILSON [address] [place] [address] 2nd [place] [address] [email or web address] PCP - General Nurse Practitioner 05/02/25 Bianca Rogers PA [facility] [place] [address] Historical LMR Provider 07/09/17 2 Elroy Pabon DO [address] [place] [address] Orthopedics & Sports Medicine, [place] [address] [email or web address] Historical LMR Provider 07/09/17 Elroy England PA-C [address] [place] [address] Historical LMR Provider 07/09/17 2 Annita Amaral PA-C [address] [place] [address] [facility] [place] [address] [email or web address] Historical LMR Provider 07/09/17 09/29/21 William Hyman MD [address] [place] [address] Historical LMR Provider 07/09/17 2 documented as of this encounter Additional Source Comments The information contained in this document represents components of the legal health record. It is not the complete legal health record.[facility]
--- OUTSIDE RECORDS SUMMARY | 2025-08-02 08:56 | XMS_ITS | Encounter Summary ---
Author Organization [facility] Address [address] [place] [address] Phone Care Team Providers Care Power Builder Developer Name Role Phone Elroy EnglandC Primary Care Provider [phone] Bianca Rogers Unavailable [phone] Elroy Pabon DO Unavailable Elroy England-C Unavailable [phone] Annita Amaral-C Unavailable William Hyman MD Unavailable [phone] Barbie Schmidt NP Primary Care Provider Unknown, Unknown Primary Care Provider Arlene Horton Primary Care Provider Pcp, Unknown Primary Care Provider Liliana Hanna NP Primary Care Pro vider Geoff Gaxiola DO Primary Care Provider [phone] Bing Em NP Primary Care Provider Reason for Referral * Consultation (Elective) - Closed Specialty Diagnoses / Procedures Referred By Barry t Referred To Contact Neurology Diagnoses Encounter for consultation System, Provider Not In, [facility] [address] [address] Referral ID Status Reason Start Date Expiration Date Visits Re quested Visits Authorized [id number] Closed 12/16/2016 12/16/2017 1 1 Encounter Details Date Type Department Care Team (Late st Contact Info) Description 12/16/2016 Transcribe Orders [facility] Department of Neurology [address] [facility], 8th Floor, [address] [place] [address] Elroy England PA-C [address] [place] [address] [address] [place] [address] Encounter for consultation (Primary Dx) Social History Tobacco Use Types [...] Description 08/29/2025 9:00 AM EST Office Visit [facility] [address] [place] [address] 3rd Floor, [address] [place] [address] Francisco [place]ricks MD, MS 22 [facility], [address] [place] [address] [email or web address] Scheduled Referrals Name Type Priority Associated Diagnoses Orde r Schedule Ambulatory referral to [facility] Neurology Outpatient Referral Routine Encounter for consultation Ordered: 12/16/2016 documented as of this encounter Visit Diagnoses Diagnosis Encounter for consultation- Primary documented in this encounter Additional Health Concerns Infection Onset Date Last Indicated Resolved Time CoV-Risk 07/26/2022 07/26/2022 08/06/2022 2:40 PM EST CoV-Risk 03/27/2024 03/27/2024 04/07/2024 1:21 AM EDT documented as of this encounter Care Teams Power Builder Developer Relationship Specialty Start Date End Date Elroy England PA-C [address] [place] [address] 1 [place] [address] PCP - General 09/04/16 06/08/18 Barbie Schmidt, ADILSON [address] [place] [address] PCP - General Pediatrics 06/09/18 12/29/18 Unknown, Unknown, [address] [place] [address] PCP - General 03/02/19 04/06/19 Arlene Dwyer PA [address] [place] [address] PCP - General Unknown Provider Specialty 04/07/19 02/12/22 Pcp, Unknown PCP - General 02/13/22 07/25/22 Liliana Gonzáles, ADILSON [address] [place] [address] [email or web address] PCP - General Family Medicine 07/26/22 10/21/23 Geoff Gaxiola DO [address] [place] [address] 220 [place] [address] [email or web address] PCP - General Hospitalist 10/22/23 05/01/25 Bing Em NP [address] [place] [address] 2nd [place] [address] [email or web address] PCP - General Nurse Practitioner 05/02/25 Bianca Rogers [place] [place] [address] Historical LMR Provider 07/09/17 2 Elroy Pabon DO [address] [facility] Orthopedics & Sports Medicine, [facility] [place] [address] [email or web address] Historical LMR Provider 07/09/17 Elroy England PA-C [address] [place] [address] Historical LMR Provider 07/09/17 2 Annita Amaral PA-C [address] [facility] Orthopedics & Sports Medicine, [place] [address] jose Historical LMR Provider 07/09/17 09/29/21 William Hyman MD [address] [place] [address] Historical LMR Provider 07/09/17 2 documented as of this encounter Additional Source Comments The information contained in this document represents components of the legal health record. It is not the complete legal health record.[facility]
== END 2025-08-02 09:20 | disposition home or self-care (01) ==
LOC: HO.HSMS 08:44
PROVIDERS: PCP Nurse Practitioner Gerontology; Visit Provider Psychiatry & Neurology Neurology
DX: G43.719 Chronic migraine without aura, intractable, without status migrainosus (principal)
CPT/HCPCS: 64615

== ENCOUNTER → 2025-08-02 08:43 | Outpatient (BNVA) | payer OTHER, SELFPAY | PROVIDERS: PCP Nurse Practitioner Gerontology; Visit Provider Psychiatry & Neurology Neurology | DX: G43.719 Chronic migraine without aura, intractable, without status migrainosus (principal) | CPT/HCPCS: 64615; 99211; J0585 ==